=== PATIENT | male | born 1935 | race Caucasian/White ===

== ENCOUNTER 2018-08-05 05:15 | Inpatient (IN) ==
--- NOTE | 2018-06-15 14:50 | Anesthesiology Consultation ---
Date of Service June 15, 2018 Assessment & Plan (1) Encounter for pre-operative examination: Plan: PCP 05/26/2018: We have evaluated Rao Garcia preoperatively and found the patient to be medically stable for this procedure and anesthetic agent. Patient was last evaluated by cardiology 11/17/2017. Referred for evaluation of SOB, atypical chest pain. Per cardiology "I believe his chest pain is not cardiac. He underwent an adenosine Myoview stress [January 2017] which was negative for reversible ischemia. He does have history of heart disease and previous angioplasty Therefore I advised him in case chest pain is worse to make sure he calls us or call his PCP in the event either to repeat pharmacological stress testing or do a coronary angiogram. He has significant chronic renal disease and therefore at this time did not recommend he should have coronary angiogram as a last resort. I believe his symptoms of shortness of breath, fatigue, not been able to do much, is multifactorial. He used to use CPAP but has not been using it for 1 year. He is very sedentary, is morbidly obese, and has history of chronic lung disease... Advised him to start to walk and lose weight to watch his diet and check his weight on a regular basis... Atorvastatin increased from 40 mg to 80 mg daily. I did not give him follow-up appointment at this time will be pleased to see him if he has any new cardiac problem." Patient denies any worsening or change in symptoms (very rarely has episodes of same atypical CP). Chart Review Chart Review: Acceptable Risk for Surgery and Patient seen in Pre Admission Testing Teaching & Discussion Instructed NPO after midnight before surgery, except medications with 15 cc of water. Medication instructions provided according to the PAT guidelines. History Surgery Operation Date: 08/05/18 07:10 Proposed Procedures p Right Knee Unicompartment Arthroplasty versus Total Knee Arthroplasty - Dutch Pride MD Height/Weight Height: 5 ft 10 in Weight: 112.9 kg Allergies Allergy/AdvReac Type Severity Reaction Status Date / Time indomethacin Allergy Unknown LOWERED Verified 06/12/18 11:35 WHITE CELL COUNT metformin AdvReac Unknown pt unsure Verified 06/15/18 14:48 why Medications Home Medications Medication Instructions Recorded Confirmed Last Taken acetaminophen 650 mg PO Q6H PRN 06/12/18 06/12/18 Unknown albuterol sulfate 2 puff INHALATION Q6H PRN 06/12/18 06/12/18 Unknown allopurinol 300 mg PO QAM 06/12/18 06/12/18 Unknown aspirin 81 mg PO BID 06/12/18 06/12/18 Unknown atorvastatin 80 mg PO HS 06/12/18 06/12/18 Unknown celecoxib [Celebrex] 200 mg PO BID PRN 06/12/18 06/12/18 Unknown fluticasone-salmeterol [Advair 1 inh INHALATION BID 06/12/18 06/12/18 Unknown Diskus] glipizide 10 mg PO BID 06/12/18 06/12/18 Unknown lactobacillus combination no.4 3,000 mmu cells PO QAM 06/12/18 06/12/18 Unknown [Probiotic] metoprolol succinate 100 mg PO QAM 06/12/18 06/12/18 Unknown olmesartan 40 mg PO QAM 06/12/18 06/12/18 Unknown sitagliptin [Januvia] 100 mg PO QAM 06/12/18 06/12/18 Unknown tamsulosin 0.4 mg PO QAM 06/12/18 06/12/18 Unknown repaglinide 2 mg PO TID 06/15/18 06/15/18 Unknown Past Medical History Medical History BPH (benign prostatic hyperplasia) CAD (coronary artery disease) s/p stent to RCA x 1 2009 Chronic obstructive pulmonary disease very rare albuterol use. Daily Advair, stable. Diabetes mellitus, type 2 Hyperlipidemia Hypertension Neuropathy LEFT LOWER LEG/FOOT. PT STATES HE HAS DROP FOOT. Osteoarthritis Sleep apnea PT HAS CPAP DEVICE, DOES NOT CURRENTLY WEAR. Transient ischemic attack (TIA) JANUARY 2018. NO RESIDUAL. Past Surgical History Surgical History Fusion of spine LUMBAR History of cardiac cath 2009. STENT X1. [facility] History of carotid endarterectomy LEFT. 2018 in [place] History of cholecystectomy History of colonoscopy History of tonsillectomy Past Anesthesia History No Hx of Anesthesia Complications and No Family Hx of Anesthesia Complications History of PONV No Motion Sickness Screening History of Motion Sickness: No Social History Smoking Status: Former smoker tobacco type: cigarettes Smoking cigarettes per day: H/O up to 2ppd Do You Dip or Chew Tobacco: No Smoking End Date: QUIT IN 1967 Hx Alcohol Use: No Hx Substance Use: No substance use type: does not use Exercise / Class Metabolic Activity III < 4 Walking/Shop/Light housework (no CP or SOB with ambulation, limited activity 2/2 foot drop/neuropathy.) Review of Systems Pt denies any recent chest pain, shortness of breath above baseline, palpitations, cough, fever or URI. Current post nasal drip/phlegm. Physical Exam Vital Signs BP: 143/85 P: 78 SPO2: 93% RA T: 97.9 R: 20 ENMT Mouth: + dentures and + edentulous Thyromental Distance: < 3.5 Finger Breadths (3) Mallampati Class: III Neck + short neck and + thick neck; neck extension not limited L CEA scar, healed Respiratory normal respiratory effort and + prolonged expiratory phase Auscultation: lungs clear to auscultation bilaterally Cardiovascular Rate/Rhythm: regular rate and regular rhythm Heart Sounds: no murmur Vessels: no carotid bruit Very distant sounds Testing Electrocardiogram Date: 06/15/18 Findings: + NSR @ (78) Sinus arrhythmia. Left axis deviation. Chest X-Ray Date: 06/15/18 1. There is no active disease in the chest. 2. Emphysema with left upper lobe bullous change is similar to previous. 3. Dystrophic calcifications projecting over the left mid chest are also unchanged. Echocardiogram Date: 02/09/17 EF: 60-65% Impaired relaxation pattern of LV diastolic fillinggrade 1. Left atrium is mildly dilated. Aortic valve with a normal mean gradient on Doppler and poor leaflet mobility of 2D images. No AR. Normal right ventricular size and systolic function. No pericardial effusion is seen. Stress Test Date: 02/11/17 Type: nuclear Resting EF: 65% The overall quality of the images are good. The LV cavity is normal on the rest and stress studies. The RV appears normal. Myocardial perfusion imaging study appears normal following pharmacologic stress with regadenoson. No stress- induced perfusion abnormality is identified. There is diaphragmatic attenuation of the inferior wall. Normal regional and global left ventricular function. LVEF is 58% post stress. Other Testing Carotid US 09/01/17* 50-69% stenosis ZOFIA. LICA demonstrates slight increase in velocities, however no significant stenosis present. Antegrade flow is seen within B/L vertebral arteries. *This was done as a routing screening. Pt had subsequent TIA; repeat carotid doppler at different facility showed more severe occlusion, and pt had L CEA 2017. Laboratory Results 06/15/18 15:15 06/15/18 13:21 Blood Type O Positive 06/15/18 15:15 Antibody Screen NEGATIVE 06/15/18 15:15 PT 11.6 Seconds (9.0-12.0) 06/15/18 15:15 INR 1.1 (0.9-1.1) 06/15/18 15:15 APTT 26.3 Seconds (21.0-31.0) 06/15/18 15:15 Hemoglobin A1c 6.7 % (4.5-5.6) H 06/15/18 15:15
--- NOTE | 2018-06-15 15:13 | PAT Medication Instructions ---
Medication Instructions Date of Service June 15, 2018 Home Medications acetaminophen 650 mg PO Q6H PRN albuterol sulfate 2 puff INHALATION Q6H PRN allopurinol 300 mg PO QAM aspirin 81 mg PO BID atorvastatin 80 mg PO HS celecoxib [Celebrex] 200 mg PO BID PRN fluticasone-salmeterol [Advair] 1 inh INHALATION BID glipizide 10 mg PO BID [Probiotic] 3,000 mmu cells PO QAM metoprolol succinate 100 mg PO QAM olmesartan 40 mg PO QAM sitagliptin [Januvia] 100 mg PO QAM tamsulosin 0.4 mg PO QAM repaglinide 2 mg PO TID Check with MD/Surgeon-instructions aspirin 81 mg PO BID celecoxib [Celebrex] 200 mg PO BID PRN Hold the morning of surgery glipizide 10 mg PO BID [Probiotic] 3,000 mmu cells PO QAM olmesartan 40 mg PO QAM sitagliptin [Januvia] 100 mg PO QAM tamsulosin 0.4 mg PO QAM repaglinide 2 mg PO TID Take morning of surgery with a sip of water, OTHERWISE NOTHING TO EAT OR DRINK AFTER MIDNIGHT: acetaminophen 650 mg PO Q6H PRN (if needed, may be taken up to four hours before surgery) albuterol sulfate 2 puff INHALATION Q6H PRN (if needed, and bring with you to the hospital) allopurinol 300 mg PO QAM fluticasone-salmeterol [Advair] 1 inh INHALATION BID metoprolol succinate 100 mg PO QAM Take evening before surgery atorvastatin 80 mg PO HS fluticasone-salmeterol [Advair] 1 inh INHALATION BID repaglinide 2 mg PO TID Other Notes If you have any questions please call us at [phone] or [phone] or [phone] or [phone]
[2018-06-15 15:49] LABS: Basophils # (auto) 0.03 K/uL (0-0.2); Basophils % (auto) 0.6 %; Eosinophils % (auto) 5.8 %; Hematocrit (blood only) 44.3 % (42-52); Hemoglobin 14.3 g/dL (14.0-18.0); Immature Granulocytes # (auto) 0.01 K/uL (0.00-0.02); Immature Granulocytes % (auto) 0.2 %; Lymphocytes # (auto) 1.61 K/uL (1.2-3.4); Mean Corpuscular Hgb Conc 32.3 g/dL (32-36); Mean Corpuscular Volume 89.5 fL (80-100); Mean Platelet Volume 9.6 fL (7.4-10.4); Monocytes # (auto) 0.38 K/uL (0.11-0.59); Monocytes % (auto) 7.3 %; Neutrophils # (auto) 2.86 K/uL (1.4-6.5); Neutrophils % (auto) 55.1 %; Platelet Count 138 K/uL (130-400); RDW Standard Deviation 48.4 fL (36.4-46.3); Red Blood Count 4.95 M/uL (4.7-6.1); White Blood Count 5.19 K/uL (4.8-10.8)
[2018-06-15 15:59] LABS: INR 1.1 (0.9-1.1); Partial Thromboplastin Time 26.3 Seconds (21.0-31.0); Prothrombin Time 11.6 Seconds (9.0-12.0)
[2018-06-15 16:02] LABS: BUN Creatinine Ratio 12.2 (10-20); Calcium 8.9 mg/dl (8.5-10.1); Creatinine Clr Calc Pharmacy 46.2 ml/min; Est GFR (African American) 47.6; Est GFR (Non-African American) 41.1
--- NOTE | 2018-06-15 17:54 | XRay Report ---
TWO VIEW CHEST CLINICAL HISTORY: Preoperative examination. FINDINGS: PA and lateral chest radiographs are compared to study dated 12/11/2017. The heart is top no rmal for projection and there is atherosclerotic calcification of the thoracic aorta. Advanced emphys ematous change is noted with large left upper lobe bullae. This is similar appearance to previous. La rge calcifications projecting over the left hemithorax are also similar to previous. There is mild bi basilar scarring/atelectasis. No airspace consolidation or large pleural effusion is identified. Ther e is no pneumothorax. The skeletal structures are osteopenic. Degenerative change is noted throughout the thoracic spine. IMPRESSION: 1. There is no active disease in the chest. 2. Emphysema with left upper lobe bullous change is similar to previous. 3. Dystrophic calcifications projecting over the left mid chest are also unchanged. Electronically signed by: Jhon Sun M.D. 06/15/2018 5:53 PM
[2018-06-16 05:49] LABS: Estimated Average Glucose 146 mg/dl
--- NOTE | 2018-08-01 12:54 | History and Physical Report ---
DATE OF ADMISSION: 08/05/2018 CHIEF COMPLAINT: Persistent right medial knee pain and discomfort. HISTORY OF PRESENT ILLNESS: The patient is an 83-year-old gentleman from [place], who now presents for surgical treatment of his right knee. We had actually seen him and scheduled for partial knee replacement in the past, but had cancelled due to an elevated hemoglobin A1c level. He has gotten with his medical doctor and gotten this under better control. His hemoglobin A1c is now 6.7. He continues to be bothered by medial-sided knee pain. He uses a cane to get around for balance as well as pain. He does have some underlying neuropathy. He has been through extensive conservative treatment including injections which helped him temporarily. Pain is mostly all medial. He now would like to have this fixed. PAST MEDICAL HISTORY: 1. Hypertension. 2. Elevated cholesterol. 3. Cerebrovascular disease with a history of TIAs in the past and a carotid endarterectomy done in February 2017 in [place]. 4. Asthma. 5. COPD. 6. Coronary artery disease, status post stent placement in 2009. 7. Sleep apnea. 8. Diabetes. 9. Sciatica. 10. Obesity with a BMI of 36. 11. BPH. PAST SURGICAL HISTORY: Include: 1. Back surgery. 2. Carotid endarterectomy 2016. 3. Cholecystectomy. 4. Cardiac stent placement in 2009. ALLERGIES: INDOCIN. CURRENT MEDICINES: Include: 1. Tamsulosin 0.4 mg. 2. Januvia 100 mg. 3. Olmesartan 40 mg. 4. Allopurinol 300 mg. 5. Metoprolol 10 mg a day. 6. Glipizide 10 mg twice a day. 7. Albuterol p.r.n. 8. Advair inhaler twice a day. 9. Atorvastatin 80 mg at bedtime. 10. Celebrex p.r.n. 11. Probiotic. 12. Baby aspirin twice a day. 13. Repaglinide 2 tablets in the morning, 1 at noon and 2 at nighttime. SOCIAL HISTORY: An 83-year-old male. He is from [place]. He is . Does not smoke. FAMILY HISTORY: Noncontributory. REVIEW OF SYSTEMS: Significant for diabetes. Also, he has a history of cerebrovascular disease, but no underlying neurological sequelae from this. He has got some chronic neuropathy and a foot drop on his left side. History of previous cardiac stent placement by Dr. Britton. PHYSICAL EXAMINATION: GENERAL: Shows a pleasant elderly male. Looks to be in pretty good health. HEENT: Benign. NECK: Supple. No lymphadenopathy. LUNGS: Clear to auscultation. HEART: Regular rate and rhythm. ABDOMEN: Soft, nontender, nondistended. EXTREMITIES: Grossly neurovascularly intact except as follows: Examination of the right lower extremity reveals the patient walks with use of a cane. He has got varus alignment to his knee. Small knee effusion. He is tender over the medial joint line. Range of motion is 5 to 125. No instability. X-RAYS: X-ray of the right knee reviewed. Shows advanced medial compartment DJD. He may have a small segment of AVN of the medial femoral condyle. The lateral compartments well preserved. Patellofemoral joint looks pretty well preserved. With the stress film, his medial side opens up and lateral side is maintained. ASSESSMENT: An 83-year-old male with a history of multiple medical comorbidities with advanced medial compartment degenerative joint disease. Temporary response to conservative care. He has been scheduled for surgery in the past, but canceled due to his elevated A1c level which is under much better control now. He would like to have his right knee fixed. PLAN: We talked about treatment options. Based on his medical comorbidities and his symptoms, I think a partial knee replacement is most appropriate for this gentleman. If we get in there and his knee is too bad, we will do a full knee replacement, but we will hope and do this partial knee. The risks and benefits of partial versus total knee replacement were explained to the patient including but not limited to DVT, PE, , infection, neurological injury, vascular injury, bleeding problem, pain, limited range of motion, stiffness, failure to relieve symptoms, incomplete relief of symptoms, need for further surgery in future, fracture, leg length inequality, nerve palsy, incomplete relief of symptoms, etc. The patient understands and desires to proceed. Informed consent was obtained. We did talk to him about taking his metoprolol the morning of surgery with a sip of water. Use aspirin for DVT prophylaxis. He is hoping to be discharged to home with his 's assistance and a son who can help out as well along with the home health program. He will also need to bring his CPAP machine to the hospital.
[2018-08-05] MEDS: LR 500ML BOLUS, THEN 15ML/HR IV SCH ×3 (05:50→19:09)
[2018-08-05] MEDS ORDERED: BUPIVACAINE LIPOSOME/PF 266 MG, BUPIVACAINE/EPINEPHRINE 50 ML, SODIUM CHLORIDE 0.9% 30 ... INFIL SCH (06:00)
[2018-08-05] MEDS ORDERED: CEFAZOLIN 2000MG 2,000 MG/15 ML SYR IV SCH (06:00)
[2018-08-05] MEDS ORDERED: GABAPENTIN 300 MG PO SCH (06:00)
[2018-08-05] MEDS ORDERED: LR 60ML/HR IV SCH (06:00)
[2018-08-05] MEDS ORDERED: FAMOTIDINE 20 MG TAB PO SCH (06:00)
[2018-08-05] MEDS ORDERED: ACETAMINOPHEN 500 MG TAB PO SCH (06:00)
[2018-08-05] MEDS ORDERED: METOCLOPRAMIDE HCL 10 MG TABLET PO SCH (06:00)
[2018-08-05] MEDS ORDERED: BUPIVACAINE 0.5 % 5 MG/1 ML PF 10ML VIAL ONE (06:22)
[2018-08-05] MEDS ORDERED: EPINEPHrine INJ 1 MG/ML AMP ONE (06:23)
[2018-08-05] MEDS ORDERED: ROPIVACAINE 0.5% 5 MG/ML 30 ML VIAL ONE (06:23)
[2018-08-05] MEDS ORDERED: TRANEXAMIC ACID 1,000 MG **IV Intra-op IV SCH (06:30)
[2018-08-05] MEDS ORDERED: SODIUM CHLORIDE 0.9% PF 50 ML VIAL ONE (06:52)
[2018-08-05] MEDS ORDERED: BACITRACIN INJ 50,000 UNIT VIAL ONE (06:52)
[2018-08-05] MEDS ORDERED: BUPIVACAINE LIPOSOME 1.3% 266 MG/20 ML VIAL INFIL ONE (06:52)
[2018-08-05] MEDS ORDERED: BUPIVACAINE/EPINEPHRINE 0.25% 1:200,000 30 ML VIAL ONE (06:55)
[2018-08-05] MEDS ORDERED: fentaNYL citrate 100 MCG/2 ML VIAL ONE ×2 (06:57→07:57)
[2018-08-05] MEDS ORDERED: MIDAZOLAM HCL 1 MG/ML 2ML VIAL ONE ×2 (06:57→07:49)
[2018-08-05] MEDS ORDERED: ATROPINE SULFATE 0.1 MG/ML 10ML SYR IV PRN (06:58)
[2018-08-05] MEDS ORDERED: MEPERIDINE HCL 25 MG/ML CARP IV PRN (06:58)
[2018-08-05] MEDS ORDERED: fentaNYL citrate 100 MCG/2 ML VIAL IV PRN (06:58)
[2018-08-05] MEDS ORDERED: LABETALOL HCL IV 5 MG/ML 20ML IV PRN (06:58)
[2018-08-05] MEDS ORDERED: HYDROmorphone INJ 1 MG/ML SYRINGE IV PRN (06:58)
[2018-08-05] MEDS ORDERED: PHENYLEPHRINE 100MCG/ML 5ML SYR IV PRN (06:58)
[2018-08-05] MEDS ORDERED: ONDANSETRON INJ 2 MG/ML 2 ML VIAL IV PRN ×2 (06:58→10:15)
[2018-08-05] MEDS ORDERED: ePHEDrine sulfate 50 MG/ML AMP IV PRN (06:58)
--- NOTE | 2018-08-05 07:00 | History & Physical Bridge Note ---
Date of Service August 05, 2018 History & Physical Bridge Note I have examined the patient, reviewed the History & Physical and in the interval since the performance of the History & Physical I have noted the following changes of clinical significance: no changes noted
[2018-08-05] MEDS ORDERED: ONDANSETRON INJ 2 MG/ML 2 ML VIAL ONE (07:43)
[2018-08-05] MEDS ORDERED: LIDOCAINE HCL 2% 2 ML VIAL/AMP(20MG/ML) INFIL ONE (08:00)
[2018-08-05] MEDS ORDERED: BUPIVACAINE/EPINEPHRINE 0.25% 1:200,000 30 ML VIAL INFIL ONE (08:01)
[2018-08-05] MEDS ORDERED: PHENYLEPHRINE 100MCG/ML 5ML SYR ONE (08:17)
[2018-08-05] MEDS ORDERED: PROPOFOL IV EMULSION 10 MG/ML 20 ML VIAL IV ONE (08:17)
--- NOTE | 2018-08-05 09:06 | Post Operative Brief Note ---
Immediate Post Op Note v1 Date of Surgery August 05, 2018 Pre & Post Diagnosis Operation Date: 08/05/18 07:15 Pre-Op Diagnosis: Right Knee Degenerative Joint Disease; Knee Pain Post-Op Diagnosis: Right Knee Degenerative Joint Disease; Knee Pain Procedure Operation Date: 08/05/18 07:15 Actual Procedures p Right Knee Unicompartment Arthroplasty (Right) - Dutch Pride MD Surgeon Dutch Pride MD Business Assistant [place], PAC Estimated Blood Loss 20 Findings Consistent with Post-Op Diagnosis Fluids 1600 cc Specimens Right Knee Drains Gerber Catheter Anesthesia Type Spinal MAC Complications none Disposition Accompanied Patient To Recovery: Yes Disposition: Recovery Room
--- NOTE | 2018-08-05 09:34 | XRay Report ---
XR knee RT 2V routine CLINICAL HISTORY: Surgical Post Op COMPARISON STUDY: Right knee 06/15/2018. FINDINGS: Patient is status post medial unicondylar prosthesis. The hardware is intact. No fracture o r dislocation. Skin quiana are in place. IMPRESSION: Status post medial unicondylar prosthesis. No evidence for hardware complication. Electronically signed by: Gregor De Jesus M.D. 08/05/2018 9:33 AM
--- NOTE | 2018-08-05 09:47 | Anesthesiology Progress Note ---
Date of Service August 05, 2018 Anesthesia Post Procedure Vital Signs Vital Signs: Temp Pulse Pulse Resp BP BP Pulse Ox 08/05/18 09:35 82 14 144/75 H 97 08/05/18 09:25 82 14 137/74 97 08/05/18 09:15 83 14 125/72 99 08/05/18 09:07 37.2 C 82 14 122/63 96 08/05/18 06:19 36.7 C 88 20 208/105 H 198/101 H 92 Notes Mental Status: alert / awake / arousable Patient Amnestic to Procedure: Yes Nausea / Vomiting: adequately controlled Pain: adequately controlled Airway Patency, RR, SpO2: stable & adequate BP & HR: stable & adequate Hydration State: stable & adequate Neuraxial Anesthesia: was administered and sensory block is resolving Anesthetic Complications: no major complications apparent and Pt Satisfied with anesthetic care
--- NOTE | 2018-08-05 10:13 | Operative Report ---
DATE OF OPERATION: 08/05/2018 SURGEON: Dutch Pride MD. PIER WORKER: ELISABET Hickey. PREOPERATIVE DIAGNOSIS: Right knee medial compartment degenerative joint disease. POSTOPERATIVE DIAGNOSIS: Right knee medial compartment degenerative joint disease. PROCEDURE PERFORMED: Right Bi[employer] [place] mobile bearing partial knee replacement. COMPLICATIONS: None. ESTIMATED BLOOD LOSS: 20 mL. FLUID REPLACEMENT: 1600 mL. TOURNIQUET TIME: 67 minutes at 300 mmHg. ANESTHESIA: Spinal with adductor canal block. DRAINS: None. SPECIMENS: Right knee sent for Pathology. OPERATIVE INDICATIONS: The patient is an 83-year-old male with multiple comorbidities, had a several year history of increasing right knee pain and discomfort. We had actually scheduled him for partial knee replacement in the past, but had it rescheduled for medical optimization. The patient has been optimized and now presents for surgical treatment. OPERATIVE FINDINGS: Revealed advanced grade 4 changes of the medial femoral condyle and medial tibial plateau. The patellofemoral joint was fairly well preserved. He did have a little bit of lateral compartment changes in the distal femur, but very mild and we elected to proceed with a partial knee replacement. OPERATIVE IMPLANTS: Consisted of: 1. Biomet [place] medium size femoral component. 2. Biomet [place] right medial size D tibial tray. 3. A 4 mm mobile-bearing insert. OPERATIVE PROCEDURE: The patient was taken to the Operating Room, identified and placed on the operating table in supine position. All contact areas were appropriately padded. IV antibiotics were provided by Anesthesia team. Spinal anesthetic and adductor canal block had been provided in the holding area. Gerber catheter was placed in sterile fashion. Right thigh tourniquet was then placed and the right lower extremity was then prepped and draped in usual sterile fashion. Right leg was elevated and exsanguinated with Esmarch and tourniquet was placed at 300 mmHg. Anterior approach of the right knee was then performed through a longitudinal incision from the superior medial border of the patella to just medial to the tibial tubercle. Sharp dissection was carried out through the subcutaneous tissues down to the level of the extensor mechanism. A medial parapatellar arthrotomy incision was made. Some slight subperiosteal dissection was carried out medially, taking great care to protect the MCL. I did resect some of the fat pad. I then examined the knee and there were some very mild lateral compartment changes and I elected to proceed with partial knee replacement. The trochlea and patella were fairly well preserved. He had extensive grade 4 changes of the medial side. The osteophytes were taken off the intercondylar notch area. The femur was sized to a size medium. The medium spoon was placed and attached to the tibial cutting guide. Tibial cutting guide was pinned in place. The proximal tibial cut was made. The tibia was then sized to a size D. Attention was then drawn to the femur. The intramedullary canal of the femur was entered with a sharp drill. Intramedullary guide was placed. A medium femoral component template was then placed and secured to the IM arian. The holes were drilled for the femoral component. Posterior cutting guide was placed and posterior cut was made. Distal femur was then milled. I then resected the medial meniscus. I then trialed the knee and the 4 mm spacer fit appropriate in flexion and the 1 in extension. We then milled the distal femur with the 3 spigot. We then retrialed the knee and the 4 feeler gauge fit appropriately in flexion and extension. Attention was then drawn to placement of the permanent components. All trial components were removed. The distal femoral preparation device was placed. Distal femur was milled anteriorly and the posterior osteophyte was removed. The cement drill was used to create some holes in the distal femur for cement interdigitation. The tibial tray was then pinned in place. The toothbrush blade was used to create the keel for the tibial tray. We then trialed the knee one more time and the 4 insert fit most appropriately in flexion and extension. We elect to place these implants. All trial implants were removed. I irrigated it extensively. I did inject locally with a total of 100 mL of a combination of 20 mL of Exparel, 30 mL of normal saline, 50 mL of 0.25% Marcaine with epinephrine. The patient did receive 1 g of tranexamic acid. The wound was once again irrigated. A single batch of [place] G cement was mixed. A Biomet [place] size medium femoral component, size D medial tibial tray were then cemented in place using the feeler gauge. The knee was brought out in about 30 degrees short of full extension until cement hardened. A final cement check was then performed. We then trialed the knee one more time and then elected to place a 4 insert. The 4 insert was placed. Attention was then drawn toward closing. The wound was irrigated with copious amounts of pulsatile lavage solution. The tourniquet was let down for a tourniquet time of 67 minutes. Hemostasis was assured using electrocautery. The extensor mechanism was then closed with #1 Vicryl suture in a [id number] fashion. Extensor mechanism was checked and found to be intact. The subcutaneous tissue then closed with 2 Dexon suture in a buried interrupted fashion. Skin was closed with skin quiana. Leg was then cleaned and dried and a sterile dressing of Xeroform, 4 x 4, sterile cast padding and Nehemias bandage were applied. The patient transferred to the Recovery Room in stable condition. The patient tolerated the procedure well with no complications. All needle and sponge counts were correct at the end of the operation. I attest to the content of the Intraoperative Record and any orders documented therein. Any exception s are noted below.
[2018-08-05] MEDS ORDERED: METOCLOPRAMIDE HCL INJ 5 MG/ML 2 ML VIAL IV PRN (10:15)
[2018-08-05] MEDS ORDERED: HYDROmorphone INJ 0.5 MG/0.5 ML SYR IV PRN (10:15)
[2018-08-05] MEDS ORDERED: ALUMINUM/MAGNESIUM SUSP 30 ML UDC PO PRN (10:15)
[2018-08-05] MEDS ORDERED: MAGNESIUM HYDROXIDE SUSP 30 ML UDC PO PRN (10:15)
[2018-08-05] MEDS ORDERED: BISACODYL 10 MG SUPP PR PRN (10:15)
[2018-08-05] MEDS ORDERED: ALBUTEROL HFA 8 GM INHALER INH PRN (10:15)
[2018-08-05] MEDS ORDERED: TAMSULOSIN HCL 0.4 MG CAP PO PRN (10:15)
[2018-08-05] MEDS ORDERED: TRAMADOL HCL 50 MG TABLET PO PRN (10:15)
[2018-08-05] MEDS ORDERED: CeleBREX 200 MG CAP PO PRN (10:15)
[2018-08-05] MEDS: SODIUM CHLORIDE 0.9% 1000ML 1,000 ML IV SCH ×2 (11:04→21:02)
[2018-08-05] MEDS ORDERED: CARBOHYDRATES FOR HYPOGLYCEMIA PO PRN (11:37)
[2018-08-05] MEDS ORDERED: DEXTROSE 50% 50 ML SYRINGE IV PRN (11:37)
[2018-08-05] MEDS ORDERED: GLUCOSE 40% GEL 15 GM TUBE PO PRN (11:37)
[2018-08-05] MEDS ORDERED: GLUCOSE 10 TABS/TUBE PO PRN (11:37)
[2018-08-05] MEDS ORDERED: GLUCAGON FOR INJ 1 MG VIAL SQ PRN (11:37)
[2018-08-05] MEDS ORDERED: PHARMACY GLYCEMIC MGMT CONSULT PRN (11:39)
[2018-08-05] MEDS ORDERED: REPAGLINIDE 1 MG TAB PO SCH (12:00)
[2018-08-05] MEDS ORDERED: INSULIN GLARGINE SOLOSTAR 100 UNITS/ML 3 ML PEN SC STA ×2 (12:25→14:12)
[2018-08-05] MEDS: INSULIN ASPART 100 UNITS/ML 3 ML PEN SC SCH ×3 (12:57→21:06)
[2018-08-05] MEDS: ACETAMINOPHEN 500 MG TAB PO SCH ×2 (14:37→21:02)
--- NOTE | 2018-08-05 14:46 | Pharmacy Report ---
Glycemic Control Consultation - Date of Service August 05, 2018 - Scope Scope: Glycemic Pharmacist consulted by Dr Pride on 08/05/18 for glycemic control and to write orders per [facility] inpatient glycemic control protocol - Objective Weight: 112.5 kg Accuchecks BSG (last 24hrs): 08/05/18 08/05/18 08/05/18 06:09 09:12 11:59 POC Glucose 180 H 161 H 230 H HbA1c: Hemoglobin A1c 6.7 % (4.5-5.6) H 06/15/18 15:15 - Recent Pertinent Medications Outpatient Anti-diabetic Regimen: * Glipizide, Prandin, Januvia * A1c = 6.7 % 06/15/18 - Assessment & Plan Assessment & Plan: ASSESSMENT: * Mr. Lea is an 83yo M unbeknownst to the pharmacy glycemic service. PMHx: HTN, HLD, CVA, DM-II, COPD, among others. He is POD: 0 for a partial knee replacement. His outpt glycemic management is adequate as evidenced by his A1C of 6.7, obtained 06/15/18. * He did not receive any maik-operative steroids, I do not suspect him to experience sustained hyperglycemia PLAN FOR INPATIENT GLYCEMIC CONTROL: * Holding outpatient oral diabetes medications * Basal insulin * Lantus 20 units X1 this afternoon * Bolus insulin * NovoLog per scale ACHS or Q6hrs while NPO * Goal Range: Low 110 mg/dL - High 140 mg/dL * Correction Factor: 15 mg/dL/unit * Nutritional / Prandial insulin per carb ratio of 1 unit per 5 grams CHO consumed * Please note that the plan above was derived based on current level of insulin resistance and hospital stress. These recommendations are appropriate for inpatient admission only. Plan of care upon discharge will need to be reassessed to avoid potential outpatient hypo/hyperglycemia. Thank you.
[2018-08-05] MEDS: CEFAZOLIN 2000MG 2,000 MG/15 ML SYR IV SCH ×2 (15:56→23:34)
[2018-08-05] MEDS ORDERED: glipiZIDE 5 MG TAB PO SCH (17:00)
[2018-08-05] MEDS ORDERED: ATORVASTATIN 40 MG TAB PO SCH (21:00)
[2018-08-05] MEDS ORDERED: SENNA 8.6 MG TAB PO SCH (21:00)
[2018-08-05] MEDS: FLUTICASONE/SALMETEROL 250/50 (ADVAIR) 14 PUFF/1 INHALER INH SCH (21:01)
[2018-08-05] MEDS: DOCUSATE SODIUM 100 MG CAP PO SCH (21:02)
[2018-08-05] MEDS: ASPIRIN 81 MG ECTAB PO SCH (21:02)
--- NOTE | 2018-08-05 21:31 | Progress Note ---
DATE: 08/05/2018 SUBJECTIVE: An 83-year-old gentleman postop from a right partial knee replacement. He is doing well. Not really having much pain yet. No chest pain or shortness of breath. Not feeling dizzy or lightheaded. OBJECTIVE: VITAL SIGNS: Temperature 36.7. Vital signs stable. Some mild hypertension. PHYSICAL EXAMINATION: GENERAL: Today shows pleasant elderly male. He is sitting up in bed and looks comfortable. He is talking to his family. LUNGS: Clear to auscultation. HEART: Regular rate and rhythm. ABDOMEN: Soft, nontender, nondistended. EXTREMITIES: Grossly neurovascularly intact except as follows: Examination of the right leg reveals the leg to be well aligned. He can dorsiflex and plantarflex his foot appropriately. He is neurologically intact. X-RAYS: X-ray of the right knee from recovery room was reviewed. Shows a cemented partial knee replacement. Components looked to be in good position. No signs of problems. It is a somewhat rotated film. ASSESSMENT: An 83-year-old male with multiple medical comorbidities postop from a right partial knee replacement, doing well. Pain is controlled. He is neurologically intact. PLAN: 1. DVT prophylaxis including thigh-high TEDs, SCDs, and aspirin twice a day. 2. PT/OT. Weight bear as tolerated. Right partial knee replacement protocol. 3. IV antibiotics x24 hours. 4. Disposition: He is planning to be discharged to home with some home health once adequately recovered. We will see how he does in therapy tomorrow.
[2018-08-06] MEDS: ACETAMINOPHEN 500 MG TAB PO SCH (06:29)
--- NOTE | 2018-08-06 07:51 | Progress Note ---
DATE: 08/06/2018 SUBJECTIVE: An 83-year-old gentleman postop day 1 from a right partial knee replacement. He is doing well. His pain is controlled. No chest pain or shortness of breath. Feels like he is likely okay to go home. OBJECTIVE: VITAL SIGNS: Temperature 36.8. Vital signs stable. GENERAL: Physical examination shows a pleasant elderly male. He is lying in bed, looks comfortable. He has been watching TV. EXTREMITIES: Examination of the right leg reveals the leg to be well aligned. Dressing is clean, dry, and intact. He can do a good straight leg raise. Calf is soft and supple. He is neurologically intact. LABORATORY DATA: Pending. ASSESSMENT: An 83-year-old gentleman postop day 1 from a right partial knee replacement, doing well. His pain is controlled. PLAN: 1. DVT prophylaxis including thigh-high TEDs, SCDs, and aspirin twice a day. He is normally on a baby aspirin twice a day. 2. PT/OT. Weight bear as tolerated. Right total knee protocol. 3. Pain control. Doing well with current pain regimen. 4. Disposition: Plan to discharge to home with some home health if he does okay in therapy today.
[2018-08-06 08:03] LABS: Hematocrit (blood only) 40.4 % (42-52); Hemoglobin 13.1 g/dL (14.0-18.0); Mean Corpuscular Hgb Conc 32.4 g/dL (32-36); Mean Platelet Volume 10.5 fL (7.4-10.4); Platelet Count 128 K/uL (130-400); RDW Coefficient of Variation 15.5 % (11.5-14.5); RDW Standard Deviation 49.5 fL (36.4-46.3); Red Blood Count 4.54 M/uL (4.7-6.1); White Blood Count 6.37 K/uL (4.8-10.8)
[2018-08-06] MEDS: INSULIN ASPART 100 UNITS/ML 3 ML PEN SC SCH (08:34)
[2018-08-06] MEDS: FLUTICASONE/SALMETEROL 250/50 (ADVAIR) 14 PUFF/1 INHALER INH SCH (08:35)
[2018-08-06] MEDS: ASPIRIN 81 MG ECTAB PO SCH (08:38)
[2018-08-06] MEDS: DOCUSATE SODIUM 100 MG CAP PO SCH (08:41)
[2018-08-06] MEDS ORDERED: OLMESARTAN MEDOXOMIL 40 MG TAB PO SCH (09:00)
[2018-08-06] MEDS ORDERED: METOPROLOL SUCC 50MG EXT REL TAB PO SCH (09:00)
[2018-08-06] MEDS ORDERED: TAMSULOSIN HCL 0.4 MG CAP PO SCH (09:00)
[2018-08-06] MEDS ORDERED: PANTOprazole 40 MG TAB PO SCH (09:00)
[2018-08-06] MEDS ORDERED: ALLOPURINOL 300 MG TAB PO SCH (09:00)
[2018-08-06] MEDS ORDERED: LACTOBACILLUS ACIDOPHILUS (FLORANEX) TAB PO SCH (09:00)
[2018-08-06] MEDS ORDERED: SITAGLIPTIN PHOSPHATE 100 MG TAB PO SCH (09:00)
[2018-08-06] MEDS ORDERED: MULTIVITAMIN TAB PO SCH (09:00)
[2018-08-06 09:02] LABS: BUN Creatinine Ratio 13.9 (10-20); Calcium 8.7 mg/dl (8.5-10.1); Est GFR (African American) 49.9; Est GFR (Non-African American) 43.1; Potassium 4.4 mmol/L (3.5-5.1)
[2018-08-06] MEDS ORDERED: INSULIN GLARGINE SOLOSTAR 100 UNITS/ML 3 ML PEN SC STA (09:06)
--- NOTE | 2018-08-06 11:27 | Anesthesiology Progress Note ---
Date of Service August 06, 2018 Anesthesia Post Procedure Vital Signs Vital Signs: Temp Pulse Pulse Pulse Resp BP Pulse Ox 08/06/18 11:08 36.9 C 82 80 83 18 183/73 H 91 08/06/18 07:45 36.9 C 83 18 183/73 H 91 08/06/18 03:21 36.8 C 79 18 163/70 H 93 08/05/18 23:18 36.8 C 84 16 179/79 H 91 08/05/18 20:59 80 186/94 H 08/05/18 19:23 36.7 C 80 16 190/98 H 90 08/05/18 19:07 67 198/94 H 08/05/18 15:41 36.7 C 73 16 191/82 H 92 08/05/18 13:00 36.4 C L 77 96 H 178/77 H 96 08/05/18 12:00 76 15 154/80 H 97 Pain Intensity Right Knee: Pain Intensity: 0 Notes Mental Status: alert / awake / arousable and participated in evaluation Patient Amnestic to Procedure: Yes Nausea / Vomiting: adequately controlled Pain: adequately controlled Airway Patency, RR, SpO2: stable & adequate Hydration State: stable & adequate Neuraxial Anesthesia: was administered and sensory block is resolving Anesthetic Complications: no major complications apparent and Pt Satisfied with anesthetic care
--- NOTE | 2018-08-11 14:51 | Discharge Summary ---
ADMITTING PHYSICIAN AND SURGEON: Dr. Dutch Pride. 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 SURGERY PERFORMED: Right partial knee replacement. 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 CONSULTS: None obtained. HISTORY AND PHYSICAL EXAMINATION: Well documented in patient's chart. HOSPITAL COURSE: The patient was admitted on 08/05/2018 underwent a partial knee replacement. He tolerated procedure well. There were no complications. He was transferred to the PACU postoperatively and later the orthopedic floor for further care. He was given Ancef for antibiotic prophylaxis, MEHUL stockings, SCDs and aspirin for DVT prophylaxis. Hemoglobin, hematocrit and vital signs were monitored during his hospital stay and remained stable. Did not require any blood transfusions. There were no complications. By postoperative day 1, he was tolerating a diabetic diet. Pain was controlled with oral pain medicine. He was participating in physical therapy. On postop day 1, he was discharged home, set up with home health services, given printed discharge instructions including new prescriptions for extra strength Tylenol and tramadol. Continue his home medications with the exception of his home dose of Tylenol, which was changed. Continue physical therapy, weightbearing as tolerated, MEHUL stockings. Follow up approximately 2 weeks postoperatively or sooner if there any problems or concerns.
== END 2018-08-06 12:05 | disposition home health service (06) | DRG 470 ==
LOC: ASU 05:15 → 3E 09:13

== ENCOUNTER 2019-06-09 19:02 | Inpatient (IN) ==
[2019-06-09] MEDS ORDERED: LABETALOL HCL IV 5 MG/ML 20ML IV PRN (19:18)
[2019-06-09] MEDS ORDERED: LABETALOL HCL IV 5 MG/ML 20ML IV ONE (19:18)
[2019-06-09 19:34] LABS: Basophils # (auto) 0.05 K/uL (0-0.2); Eosinophils # (auto) 0.45 K/uL (0-0.5); Eosinophils % (auto) 8.7 %; Hematocrit (blood only) 43.9 % (42-52); Hemoglobin 14.3 g/dL (14.0-18.0); Immature Granulocytes # (auto) 0.02 K/uL (0.00-0.02); Immature Granulocytes % (auto) 0.4 %; Lymphocytes # (auto) 1.38 K/uL (1.2-3.4); Lymphocytes % (auto) 26.7 %; Mean Corpuscular Hemoglobin 29.9 pg (25-34); Mean Corpuscular Hgb Conc 32.6 g/dL (32-36); Mean Corpuscular Volume 91.8 fL (80-100); Mean Platelet Volume 10.1 fL (7.4-10.4); Monocytes # (auto) 0.53 K/uL (0.11-0.59); Monocytes % (auto) 10.3 %; Neutrophils # (auto) 2.74 K/uL (1.4-6.5); Neutrophils % (auto) 52.9 %; Platelet Count 162 K/uL (130-400); RDW Coefficient of Variation 15.5 % (11.5-14.5); RDW Standard Deviation 51.7 fL (36.4-46.3); Red Blood Count 4.78 M/uL (4.7-6.1); White Blood Count 5.17 K/uL (4.8-10.8)
--- NOTE | 2019-06-09 19:39 | CT Scan Report ---
CT head/brain wo con CLINICAL HISTORY: 84 years-old Male with Stroke evaluation . Acute strokelike symptoms TECHNIQUE: Multiple axial CT images of the head were obtained without contrast. A dose lowering tech nique was utilized adhering to the principles of ALARA. CT DOSE: 537.48 mGy.cm COMPARISON: None. FINDINGS: No acute intracranial hemorrhage, midline shift, intracranial mass, hydrocephalus, territorial ischem ia or abnormal extra-axial collection. Age-related involutional changes. Patchy white matter hypodens ities suggest chronic microvascular ischemic disease. Cerebral vascular calcifications are noted. The calvarium is intact. Mild mucosal thickening of the ethmoid air cells. Mastoid air cells are nelli ar. Soft tissues and orbits are unremarkable. IMPRESSION: No acute intracranial abnormality. The above report was generated using voice recognition software. It may contain grammatical, syntax o r spelling errors. Electronically signed by: Saravanan Rodriguez M.D. 06/09/2019 7:36 PM
[2019-06-09 19:44] LABS: INR 1.1 (0.9-1.1); Prothrombin Time 10.9 Seconds (9.0-12.0)
[2019-06-09] MEDS ORDERED: ASPIRIN CHEW 324 MG PO STA (19:48)
[2019-06-09 19:49] LABS: Alanine Aminotransferase 29 U/L (12-78); Aspartate Aminotransferase 27 U/L (15-37); BUN Creatinine Ratio 12.8 (10-20); Blood Urea Nitrogen 20 mg/dl (7-18); Calcium 9.4 mg/dl (8.5-10.1); Carbon Dioxide 30 mmol/L (21-32); Chloride 101 mmol/L (98-107); Creatinine Clr Calc Pharmacy 44.4 ml/min; Est GFR (African American) 46.9; Est GFR (Non-African American) 40.5; Glucose 145 mg/dl (70-99); Magnesium 1.6 mg/dl (1.8-2.4); Potassium 4.5 mmol/L (3.5-5.1); Sodium 136 mmol/L (136-145)
[2019-06-09 19:54] LABS: Albumin Globulin Ratio 1.1 (0.9-2); Alkaline Phosphatase 97 U/L (45-117); Bilirubin,Total 0.4 mg/dl (0.2-1); Globulin 3.7 gm/dl (2.5-4.0); Total Protein 7.7 gm/dl (6.4-8.2); Troponin I < 0.015 ng/ml (0-0.045)
[2019-06-09] MEDS ORDERED: MAGNESIUM SULFATE / D5W 1 GM/100 ML BAG IV ONE (19:56)
[2019-06-09] MEDS ORDERED: ASPIRIN 81 MG CHEW ONE (20:06)
--- NOTE | 2019-06-09 20:53 | Emergency Department Note ---
Entered by Luann Joshi acting as a scribe for History of Present Illness General Chief complaint: Stroke/CVA Symptoms Stated complaint: SLURRED SPEECH, LEANING TO SIDE, ARMS TO RIGHT Time Seen by Provider: 06/09/19 19:12 Source: patient Limitations: no limitations History of Present Illness Provider complaint: Stroke symptoms Onset (ago): minute(s) 45 Location: head and left Pain Consistency: + other (improving) Maximum Pain Intensity: 5 Quality: + constant Associated symptoms: + headaches and + other (Positive: slurred speech, left sided weakness) The patient is an 84 year old male with past medical history of TIA, HTN, DM, CAD, BPH, who presents to the ED with complaints of improving stroke symptoms that started 45 minutes ago. The patient reports he started having slurred speech at a viewing about 45 minutes ago which worsened 15 minutes ago. He states he was unable to pronounce his words and currently has a headache. The patient notes that his son noticed that his left side was weak. The patient states that his symptoms seem now to have nearly resolved. Home Medications Home Medications Medication Instructions Recorded Confirmed Type Januvia 100 mg PO QAM 06/12/18 06/09/19 History Probiotic 3,000 mmu cells PO QAM 06/12/18 06/09/19 History albuterol sulfate 2 puff INHALATION Q6H PRN 06/12/18 06/09/19 History allopurinol 300 mg PO QAM 06/12/18 06/09/19 History aspirin 81 mg PO DAILY 06/12/18 06/09/19 History celecoxib [Celebrex] 200 mg PO BID PRN 06/12/18 06/09/19 History glipizide 10 mg PO BID 06/12/18 06/09/19 History metoprolol succinate 100 mg PO QAM 06/12/18 06/09/19 History olmesartan 40 mg PO QAM 06/12/18 06/09/19 History tamsulosin 0.4 mg PO QAM 06/12/18 06/09/19 History fluticasone furoate-vilanterol 1 ea INHALATION DAILY 06/09/19 06/09/19 History [Breo Ellipta] repaglinide [Prandin] 2 mg PO BID 06/09/19 06/09/19 History repaglinide [Prandin] 4 mg PO QPM 06/09/19 06/09/19 History Allergies Allergy/AdvReac Type Severity Reaction Status Date / Time indomethacin Allergy Unknown LOWERED Verified 06/09/19 20:10 WHITE CELL COUNT metformin AdvReac Unknown pt unsure Verified 06/09/19 20:10 why Past Med/Surg History Medical History BPH (benign prostatic hyperplasia) CAD (coronary artery disease) s/p stent to RCA x 1 2009 Chronic obstructive pulmonary disease very rare albuterol use. Daily Advair, stable. Diabetes mellitus, type 2 Hyperlipidemia Hypertension Neuropathy LEFT LOWER LEG/FOOT. PT STATES HE HAS DROP FOOT. Osteoarthritis Sleep apnea PT HAS CPAP DEVICE, DOES NOT CURRENTLY WEAR. Transient ischemic attack (TIA) JANUARY 2018. NO RESIDUAL. Surgical History Fusion of spine LUMBAR History of cardiac cath 2009. STENT X1. [facility] History of carotid endarterectomy LEFT. 2018 in [place] History of cholecystectomy History of colonoscopy History of tonsillectomy Family History (Updated 06/09/19 @ 19:25 by Luann Joshi) Other Family history non-contributory Social History Preferred Language: Kazakh Communication Ability: Effective Fringe Weaver Required: No Beliefs That Will Affect Care: None Current Living Situation: Spouse Other Information That Helps Us Care for You: No Feels Safe at Home: Yes Safety Concerns: Feels Safe At This Time Smoking Status: Never smoker Tobacco Type: cigarettes ; Cigarettes Per Day: H/O up to 2ppd ; Second Hand Exposure: No ; Hx Alcohol Use: Yes Alcohol type: beer Hx Substance Use: No Review of Systems See HPI for pertinent positives & negatives. and A total of 10 systems reviewed and were otherwise negative Physical Exam Vital Signs Vital Signs - 24 hr 06/09/19 19:13 06/09/19 19:15 06/09/19 19:31 Temperature 36.6 C Temperature Source Oral Pulse Rate 115 H 108 H 92 H Pulse Rate from SpO2 Sensor 95 H Respiratory Rate 16 24 23 Respiratory Effort / Characteristics Non-Labored Spontaneous Respiratory Depth Normal Respiratory Pattern Regular Blood Pressure 201/102 H 236/124 H 183/108 H Blood Pressure Mean 135 151 147 Pulse Oximetry 92 94 Oxygen Delivery Method Room Air Sepsis Recent Fever Within 48 Hours No Sepsis New/Unexplained Change in Mental Status No Sepsis Action Taken by Nursing No Action Required 06/09/19 19:38 06/09/19 19:41 06/09/19 19:51 Temperature Temperature Source Pulse Rate 94 H 94 H 90 Pulse Rate from SpO2 Sensor 95 H 94 H 94 H Respiratory Rate 24 23 25 H Respiratory Effort / Characteristics Respiratory Depth Respiratory Pattern Blood Pressure 172/87 H 175/89 H 125/77 Blood Pressure Mean 115 100 96 Pulse Oximetry 94 95 93 Oxygen Delivery Method Sepsis Recent Fever Within 48 Hours Sepsis New/Unexplained Change in Mental Status Sepsis Action Taken by Nursing 06/09/19 20:00 06/09/19 20:02 06/09/19 20:10 Temperature Temperature Source Pulse Rate 92 H 99 H 88 Pulse Rate from SpO2 Sensor 92 H 101 H 89 Respiratory Rate 28 H 21 26 H Respiratory Effort / Characteristics Respiratory Depth Respiratory Pattern Blood Pressure 188/97 H 185/97 H Blood Pressure Mean 131 113 Pulse Oximetry 92 94 93 Oxygen Delivery Method Sepsis Recent Fever Within 48 Hours Sepsis New/Unexplained Change in Mental Status Sepsis Action Taken by Nursing 06/09/19 20:11 06/09/19 20:21 06/09/19 20:26 Temperature Temperature Source Pulse Rate 88 88 87 Pulse Rate from SpO2 Sensor 89 86 87 Respiratory Rate 25 H 25 H 19 Respiratory Effort / Characteristics Respiratory Depth Respiratory Pattern Blood Pressure 187/104 H 187/104 H Blood Pressure Mean 152 152 Pulse Oximetry 94 95 94 Oxygen Delivery Method Sepsis Recent Fever Within 48 Hours Sepsis New/Unexplained Change in Mental Status Sepsis Action Taken by Nursing 06/09/19 20:31 06/09/19 20:41 Temperature Temperature Source Pulse Rate 88 92 H Pulse Rate from SpO2 Sensor 86 90 Respiratory Rate 18 20 Respiratory Effort / Characteristics Respiratory Depth Respiratory Pattern Blood Pressure 187/98 H 184/103 H Blood Pressure Mean 120 127 Pulse Oximetry 95 95 Oxygen Delivery Method Sepsis Recent Fever Within 48 Hours Sepsis New/Unexplained Change in Mental Status Sepsis Action Taken by Nursing GENERAL: Patient is in no acute distress. HEENT: No acute trauma, normocephalic atraumatic, mucous membranes moist, no nasal congestion, no scleral icterus. NECK: No stridor, no adenopathy, no meningismus, trachea is midline. LUNGS: Clear to auscultation bilaterally, no wheeze, no rhonchi, breath sounds equal. HEART: Mildly tachycardic rate, regular rhythm, no murmurs. ABDOMEN: Soft, nontender, bowel sounds positive, no hernias, no peritonitis. EXTREMITIES: No cyanosis or edema, full range of motion of all the joints without pain or difficulty, no signs for acute trauma. NEUROLOGIC: Oriented x 3, no acute motor or sensory deficits, no focal weakness. Subtle right facial droop. No speech slur. No cerebellar dysfunction or pronator drift. SKIN: No rash, no jaundice, no diaphoresis. Course Course 1911: The patient was evaluated in room A1. A complete history and physical exam was performed. 1922: I discussed the patients case with Dr. Shaver, [facility] stroke. He stated that since the patient is better, he would not sign on and do an evaluation. He said to give him a call back if any changes happen. He noted that his main concern is to control the patients high blood pressure. 1937: Dr. Rodriguez, Radiology, informed me that the patients head CT is negative. 1950: I discussed the patients case with Dr. Tamayo, [facility] Hospitalist. He will evaluate the patient for further management. Consultations Consultation #1: I discussed the patients case with [facility] stroke. He stated that since the patient is better, he would not sign on and do an evaluation. He said to give him a call back if any changes happen. He noted that his main concern is to control the patients high blood pressure. Time: 19:23 Consultation #2: I discussed the patients case with Dr. Tamayo, [facility] Hospitalist. He will evaluate the patient for further management. Time: 19:51 Administered Medications Heparin Sodium (Porcine) (Heparin Sodium (Porcine)) 5,000 units SQ Q12 COUNTS INCLUDE 234 BEDS AT THE [facility] Stop: 07/09/19 22:14 Last Admin: 06/09/19 23:07 Dose: 5,000 units Documented by: [id number] Cosigned by: [id number] Lorazepam (Ativan) 0.5 mg in 1 mls @ 0.5 mls/min IV TODAY@2200 COUNTS INCLUDE 234 BEDS AT THE [facility] Stop: 06/10/19 03:00 Last Admin: 06/09/19 23:17 Dose: 0.5 mls/min Documented by: [id number] Insulin Aspart (Novolog Flexpen) 0 units SC ACHS COUNTS INCLUDE 234 BEDS AT THE [facility] Stop: 07/09/19 22:14 Last Admin: 06/09/19 23:07 Dose: 3 units Documented by: [id number] Cosigned by: [id number] Labetalol HCl (Normodyne) 20 mg IV Q10M PRN PRN Reason: SBP above 185 or DBP above 110 Last Admin: 06/09/19 19:23 Dose: 20 mg Documented by: [id number] Cosigned by: [id number] Miscellaneous (Order Awaiting Action) 1 ea N/A QS JASMIN Stop: 07/09/19 21:59 Last Admin: 06/09/19 23:05 Dose: Not Given Documented by: [id number] Discontinued Medications Aspirin (Aspirin) 324 mg PO NOW STA Stop: 06/09/19 19:49 Last Admin: 06/09/19 20:02 Dose: 324 mg Documented by: [id number] Aspirin (Aspirin Chew) Confirm Administered Dose 81 mg .ROUTE .STK-MED ONE Stop: 06/09/19 20:07 Last Admin: 06/09/19 20:09 Dose: Not Given Documented by: [id number] Magnesium Sulfate/Dextrose (Magnesium Sulfate / D5w) 1 gm in 100 mls @ 100 mls/hr IV ONE ONE Stop: 06/09/19 20:55 Last Infusion: 06/09/19 21:15 Dose: 0 mls/hr Documented by: [id number] Admin: 06/09/19 20:15 Dose: 100 mls/hr Documented by: [id number] Labetalol HCl (Normodyne) Confirm Administered Dose 5 mg IV .STK-MED ONE Stop: 06/09/19 19:19 Last Admin: 06/09/19 19:23 Dose: Not Given Documented by: [id number] Critical Care Time Critical Care Time: Yes Total Critical Care Time: 32 I have personally spent 32 minutes of critical care time in the direct management of this patient. This includes bedside care, interpretation of diagnostic studies, and testing, discussion with consultants, patient, and family members, and other required patient management activities. This 32 mi nutes is in excess of all separately billable procedures. Medical Decision Making Differential Diagnosis Differential Diagnosis: Stroke, TIA, intracranial bleeding, uncontrolled hypertension, infection, electrolyte imbalance, anemia, dehydration. Medical Records Attestation: I reviewed the patient's medical records. Home Medications Current Medication List: was personally reviewed by me Laboratory Data Attestation: I reviewed the patient's lab results. Result diagrams: 06/09/19 19:15 06/09/19 19:15 Lab Results 06/09/19 06/09/19 06/09/19 Range/Units 19:15 19:15 19:15 WBC 5.17 (4.8-10.8) K/uL RBC 4.78 (4.7-6.1) M/uL Hgb 14.3 (14.0-18.0) g/dL Hct 43.9 (42-52) % MCV 91.8 (80-100) fL MCH 29.9 (25-34) pg MCHC 32.6 (32-36) g/dL RDW Std Deviation 51.7 H (36.4-46.3) fL RDW Coeff of Reji 15.5 H (11.5-14.5) % Plt Count 162 (130-400) K/uL MPV 10.1 (7.4-10.4) fL Immature Gran % (Auto) 0.4 % Neut % (Auto) 52.9 % Lymph % (Auto) 26.7 % Graham % (Auto) 10.3 % Eos % (Auto) 8.7 % Baso % (Auto) 1.0 % Immature Gran # (Auto) 0.02 (0.00-0.02) K/uL Neut # (Auto) 2.74 (1.4-6.5) K/uL Lymph # (Auto) 1.38 (1.2-3.4) K/uL Graham # (Auto) 0.53 (0.11-0.59) K/uL Eos # (Auto) 0.45 (0-0.5) K/uL Baso # (Auto) 0.05 (0-0.2) K/uL PT 10.9 (9.0-12.0) Seconds INR 1.1 (0.9-1.1) APTT 26.0 (21.0-31.0) Seconds PTT Ratio 1.0 Sodium 136 (136-145) mmol/L Potassium 4.5 (3.5-5.1) mmol/L Chloride 101 (98-107) mmol/L Carbon Dioxide 30 (21-32) mmol/L Anion Gap 5.0 (3-11) BUN 20 H (7-18) mg/dl Creatinine 1.56 H (0.6-1.4) mg/dl Est Cr Clr Drug Dosing 44.4 ml/min Est GFR ( Amer) 46.9 Est GFR (Non-Af Amer) 40.5 BUN/Creatinine Ratio 12.8 (10-20) Glucose 145 H (70-99) mg/dl POC Glucose (70-99) Calcium 9.4 (8.5-10.1) mg/dl Magnesium 1.6 L (1.8-2.4) mg/dl Total Bilirubin 0.4 (0.2-1) mg/dl AST 27 (15-37) U/L ALT 29 (12-78) U/L Alkaline Phosphatase 97 (45-117) U/L Troponin I < 0.015 (0-0.045) ng/ml Total Protein 7.7 (6.4-8.2) gm/dl Albumin 4.0 (3.4-5.0) gm/dl Globulin 3.7 (2.5-4.0) gm/dl Albumin/Globulin Ratio 1.1 (0.9-2) Blood Type Antibody Screen 06/09/19 06/09/19 Range/Units 19:15 19:19 WBC (4.8-10.8) K/uL RBC (4.7-6.1) M/uL Hgb (14.0-18.0) g/dL Hct (42-52) % MCV (80-100) fL MCH (25-34) pg MCHC (32-36) g/dL RDW Std Deviation (36.4-46.3) fL RDW Coeff of Reji (11.5-14.5) % Plt Count (130-400) K/uL MPV (7.4-10.4) fL Immature Gran % (Auto) % Neut % (Auto) % Lymph % (Auto) % Graham % (Auto) % Eos % (Auto) % Baso % (Auto) % Immature Gran # (Auto) (0.00-0.02) K/uL Neut # (Auto) (1.4-6.5) K/uL Lymph # (Auto) (1.2-3.4) K/uL Graham # (Auto) (0.11-0.59) K/uL Eos # (Auto) (0-0.5) K/uL Baso # (Auto) (0-0.2) K/uL PT (9.0-12.0) Seconds INR (0.9-1.1) APTT (21.0-31.0) Seconds PTT Ratio Sodium (136-145) mmol/L Potassium (3.5-5.1) mmol/L Chloride (98-107) mmol/L Carbon Dioxide (21-32) mmol/L Anion Gap (3-11) BUN (7-18) mg/dl Creatinine (0.6-1.4) mg/dl Est Cr Clr Drug Dosing ml/min Est GFR ( Amer) Est GFR (Non-Af Amer) BUN/Creatinine Ratio (10-20) Glucose (70-99) mg/dl POC Glucose 140 H (70-99) Calcium (8.5-10.1) mg/dl Magnesium (1.8-2.4) mg/dl Total Bilirubin (0.2-1) mg/dl AST (15-37) U/L ALT (12-78) U/L Alkaline Phosphatase (45-117) U/L Troponin I (0-0.045) ng/ml Total Protein (6.4-8.2) gm/dl Albumin (3.4-5.0) gm/dl Globulin (2.5-4.0) gm/dl Albumin/Globulin Ratio (0.9-2) Blood Type O Positive Antibody Screen NEGATIVE Imaging Data Radiologist's Impression: Radiology results as stated below per my review and the radiologist's interpretation: CT head/brain wo con CLINICAL HISTORY: 84 years-old Male with Stroke evaluation . Acute strokelike symptoms TECHNIQUE: Multiple axial CT images of the head were obtained without contrast. A dose lowering technique was utilized adhering to the principles of ALARA. CT DOSE: 537.48 mGy.cm COMPARISON: None. FINDINGS: No acute intracranial hemorrhage, midline shift, intracranial mass, hydrocephalus, territorial ischemia or abnormal extra-axial collection. Age- related involutional changes. Patchy white matter hypodensities suggest chronic microvascular ischemic disease. Cerebral vascular calcifications are noted. The calvarium is intact. Mild mucosal thickening of the ethmoid air cells. Mastoid air cells are clear. Soft tissues and orbits are unremarkable. IMPRESSION: No acute intracranial abnormality. The above report was generated using voice recognition software. It may contain grammatical, syntax or spelling errors. Electronically signed by: Saravanan Rodriguez M.D. 06/09/2019 7:36 PM ECG Data Attestation: I personally reviewed and interpreted this ECG as follows: Indication: + tachycardia Rate (beats per minute): 90 Rhythm: + sinus rhythm ECG ST segments: no ST elevation ECG Findings: + PACs and + Other (QTC 428) Blood Pressure Blood Pressure Findings: Elevated blood pressure Blood Pressure Disposition: further management by hospitalist MDM Narrative There is no leukocytosis or concerning anemia. No coagulopathy. There is some mild renal insufficiency with a creatinine of 1.56. Magnesium was low at 1.6. No worrisome liver enzyme elevation. EKG shows a sinus rhythm, no acute ischemia. Cardiac enzyme testing x1 is not consistent with acute cardiac injury. Brain CT shows no acute bleed or mass-effect. On exam, the patient had a subtle right facial droop, no extremity deficits, no speech slur. His symptoms seemed to have improved markedly before I did my evaluation. A stroke alert was called. I did speak with the stroke neurologist at [facility]. The patient will not be seen by the stroke neurologist as the patient symptoms have resolved. Upon my arrival in the room, the patient's blood pressure was quite high. He was given 20 mg of IV labetalol. This reduced the blood pressure nicely. The patient was given 1 g of IV magnesium for the lower magnesium value. He was given oral aspirin. Patient has remained asymptomatic. His family believes he is back to baseline. Certainly, his presentation is consistent with TIA or mini stroke. The higher blood pressure of course could also have caused his presentation. Of note, the family believes he may have had some speech issues a few times over the last several days however, the episodes were very short-lived. The patient requires a hospital stay. I spoke to the case management group, I talked with the patient and his family. The on-call hospitalist was consulted. Impression & Plan Stroke-like symptoms, Difficulty with speech, Hypertension, uncontrolled, Hypomagnesemia Discharge Plan Visit Data *Final* Discharge Date/Time: 06/09/19 21:11 Chief Complaint: Stroke/CVA Symptoms Stated Complaint: SLURRED SPEECH, LEANING TO SIDE, ARMS TO RIGHT ED Provider: Jhon Rios Discharge Problem: Stroke-like symptoms, Difficulty with speech, Hypertension, uncontrolled, Hypomagnesemia Patient Disposition: Admitted As Inpatient Discharge Instructions Interventions: ED Discharge Assessment Last Done: 06/09/19 21:11 The scribe's documentation has been prepared under my direction and personally reviewed by me in its entirety. I confirm that the note above accurately reflects all work, treatment, procedures, and medical decision making performed by me.
--- NOTE | 2019-06-09 20:56 | History & Physical Report ---
Date of Service June 09, 2019 Assessment & Plan (1) Transient ischemic attack (TIA): Initial TIA was without residual January 2018. Strokelike symptoms this time primarily consists of slurred speech. The symptoms resolved in each case spontaneously. We will admit to hospital with ischemic stroke without TPA protocol. Present on Admission?: Yes (2) Stroke-like symptoms: See above Present on Admission?: Yes (3) Difficulty with speech: See above Present on Admission?: Yes (4) Diabetes mellitus, type 2: Check a hemoglobin A1c. Hold repaglinide, Januvia and glipizide. Place on Accu-Cheks before meals and at bedtime with NovoLog coverage per scale Present on Admission?: Yes (5) Hyperlipidemia: Check a fasting lipid panel on patient is not listed as being on any medication at this time. Present on Admission?: Yes (6) CAD (coronary artery disease): CAD/hypertension- Blood pressure initially elevated into the systolic 180s, that did improve with labetalol IV given by ED. We will continue metoprolol succinate and on olmesartan with hold parameters. Present on Admission?: Yes (7) Hypertension: See above Present on Admission?: Yes (8) Chronic obstructive pulmonary disease: Continue Breo Ellipta and albuterol sulfate as needed Present on Admission?: Yes (9) BPH (benign prostatic hyperplasia): Continue tamsulosin Present on Admission?: Yes History of Present Illness Chief Complaint: The patient is brought to the emergency department due to symptoms of slurring of speech that began about 45 minutes prior to arrival. Primary Care Provider: Alen Vigil The patient is a 84-year-old male with a past medical history including CAD, diabetes mellitus, hypertension, BPH and TIA, who presents to the emergency department with improving slurred speech that began about 45 minutes prior to arrival. By the time of arrival in ED, the patient's symptoms have completely resolved. His family reports that over the past few days, he may have had some initial brief symptoms, that they are only aware of in retrospect at this time. The patient is unaware of his symptoms this time, as he had been during his previous TIA. He has not had a recent travels or sick exposures. Allergies Allergy/AdvReac Type Severity Reaction Status Date / Time indomethacin Allergy Unknown LOWERED Verified 06/09/19 20:10 WHITE CELL COUNT metformin AdvReac Unknown pt unsure Verified 06/09/19 20:10 why Home Medications Home Medications Medication Instructions Recorded Confirmed Type Januvia 100 mg PO QAM 06/12/18 06/09/19 History Probiotic 3,000 mmu cells PO QAM 06/12/18 06/09/19 History albuterol sulfate 2 puff INHALATION Q6H PRN 06/12/18 06/09/19 History allopurinol 300 mg PO QAM 06/12/18 06/09/19 History aspirin 81 mg PO DAILY 06/12/18 06/09/19 History celecoxib [Celebrex] 200 mg PO BID PRN 06/12/18 06/09/19 History glipizide 10 mg PO BID 06/12/18 06/09/19 History metoprolol succinate 100 mg PO QAM 06/12/18 06/09/19 History olmesartan 40 mg PO QAM 06/12/18 06/09/19 History tamsulosin 0.4 mg PO QAM 06/12/18 06/09/19 History fluticasone furoate-vilanterol 1 ea INHALATION DAILY 06/09/19 06/09/19 History [Breo Ellipta] repaglinide [Prandin] 2 mg PO BID 06/09/19 06/09/19 History repaglinide [Prandin] 4 mg PO QPM 06/09/19 06/09/19 History Past Med/Surg History Medical History BPH (benign prostatic hyperplasia) CAD (coronary artery disease) s/p stent to RCA x 1 2009 Chronic obstructive pulmonary disease very rare albuterol use. Daily Advair, stable. Diabetes mellitus, type 2 Hyperlipidemia Hypertension Neuropathy LEFT LOWER LEG/FOOT. PT STATES HE HAS DROP FOOT. Osteoarthritis Sleep apnea PT HAS CPAP DEVICE, DOES NOT CURRENTLY WEAR. Transient ischemic attack (TIA) JANUARY 2018. NO RESIDUAL. Surgical History Fusion of spine LUMBAR History of cardiac cath 2009. STENT X1. [facility] History of carotid endarterectomy LEFT. 2018 in [place] History of cholecystectomy History of colonoscopy History of tonsillectomy Family History (Updated 06/09/19 @ 19:25 by Luann Joshi) Other Family history non-contributory Social History Preferred Language: Hong Konger Communication Ability: Effective Natural Resources Instructor Required: No Beliefs That Will Affect Care: None Current Living Situation: Spouse Other Information That Helps Us Care for You: No Feels Safe at Home: Yes Safety Concerns: Feels Safe At This Time Smoking Status: Never smoker Tobacco Type: cigarettes ; Cigarettes Per Day: H/O up to 2ppd ; Second Hand Exposure: No ; Hx Alcohol Use: Yes Alcohol type: beer Hx Substance Use: No Review of Systems Review of Systems: The patient denies chest pain, palpitations, shortness of breath, dyspnea on exertion, cough, lower extremity swelling, sore throat, fevers, chills, sweats, nausea, vomiting, diarrhea , constipation, abdominal pain, pelvic pain, blood in urine or stool, dysuria, urinary frequency or urgency, lightheadedness, dizziness, loss of consciousness, rash, abnormal bruising or bleeding, imbalance, focal weakness, numbness or tingling in arms or legs, generalized arthralgias or myalgias, back or neck pain, or night sweats. The review of systems is otherwise negative other than for that already noted above, and at least 10 systems have been reviewed. Physical Exam Physical Exam: The patient is awake, alert and oriented 3, well developed and well nourished, normocephalic and atraumatic, lying in bed and in no acute distress. HEENT--PERRL, EOMI, mucous membranes and oropharynx dry. Neck--supple. No JVD. No bruits. Thyroid normal, trachea midline, no adenopathy. Heart--normal S1 and S2. No murmurs, rubs or gallops. Lungs--clear bilaterally, no respiratory distress, no accessory muscle use. Abdomen--normal bowel sounds and soft. Nontender. Nondistended, no hernias or masses, no organomegaly. Extremities--no cyanosis or clubbing. No edema. There are good distal pulses b/l. Dermatologic--normal skin turgor, normal color, no abnormal lymph nodes, no rash. Neurologic--cranial nerves II through XII grossly intact. Rheumatologic--normal range of motion. Psychiatric--normal affect. Results & Data Vital Signs (Past 12 Hours) Vital Signs Temp Pulse Resp BP Pulse Ox 06/09/19 20:51 91 H 12 94 06/09/19 20:50 94 H 18 184/101 H 94 06/09/19 20:41 92 H 20 184/103 H 95 06/09/19 20:31 88 18 187/98 H 95 06/09/19 20:26 87 19 187/104 H 94 06/09/19 20:21 88 25 H 187/104 H 95 06/09/19 20:11 88 25 H 94 06/09/19 20:10 88 26 H 185/97 H 93 06/09/19 20:02 99 H 21 188/97 H 94 06/09/19 20:00 92 H 28 H 92 06/09/19 19:51 90 25 H 125/77 93 06/09/19 19:41 94 H 23 175/89 H 95 06/09/19 19:38 94 H 24 172/87 H 94 06/09/19 19:31 92 H 23 183/108 H 94 06/09/19 19:15 108 H 24 236/124 H 06/09/19 19:13 97.9 F 115 H 16 201/102 H 92 Laboratory Results Laboratory Results WBC 5.17 K/uL (4.8-10.8) 06/09/19 19:15 RBC 4.78 M/uL (4.7-6.1) 06/09/19 19:15 Hgb 14.3 g/dL (14.0-18.0) 06/09/19 19:15 Hct 43.9 % (42-52) 06/09/19 19:15 MCV 91.8 fL (80-100) 06/09/19 19:15 MCH 29.9 pg (25-34) 06/09/19 19:15 MCHC 32.6 g/dL (32-36) 06/09/19 19:15 RDW Std Deviation 51.7 fL (36.4-46.3) H 06/09/19 19:15 RDW Coeff of Reji 15.5 % (11.5-14.5) H 06/09/19 19:15 Plt Count 162 K/uL (130-400) 06/09/19 19:15 MPV 10.1 fL (7.4-10.4) 06/09/19 19:15 Immature Gran % (Auto) 0.4 % 06/09/19 19:15 Neut % (Auto) 52.9 % 06/09/19 19:15 Lymph % (Auto) 26.7 % 06/09/19 19:15 [place] % (Auto) 10.3 % 06/09/19 19:15 Eos % (Auto) 8.7 % 06/09/19 19:15 Baso % (Auto) 1.0 % 06/09/19 19:15 Immature Gran # (Auto) 0.02 K/uL (0.00-0.02) 06/09/19 19:15 Neut # (Auto) 2.74 K/uL (1.4-6.5) 06/09/19 19:15 Lymph # (Auto) 1.38 K/uL (1.2-3.4) 06/09/19 19:15 [place] # (Auto) 0.53 K/uL (0.11-0.59) 06/09/19 19:15 Eos # (Auto) 0.45 K/uL (0-0.5) 06/09/19 19:15 Baso # (Auto) 0.05 K/uL (0-0.2) 06/09/19 19:15 ESR 23 mm/hr (0-14) H 06/09/19 21:44 PT 11.0 Seconds (9.0-12.0) 06/09/19 21:44 INR 1.1 (0.9-1.1) 06/09/19 21:44 APTT 24.9 Seconds (21.0-31.0) 06/09/19 21:44 PTT Ratio 0.9 06/09/19 21:44 Sodium 136 mmol/L (136-145) 06/09/19 19:15 Potassium 4.5 mmol/L (3.5-5.1) 06/09/19 19:15 Chloride 101 mmol/L (98-107) 06/09/19 19:15 Carbon Dioxide 30 mmol/L (21-32) 06/09/19 19:15 Anion Gap 5.0 (3-11) 06/09/19 19:15 BUN 20 mg/dl (7-18) H 06/09/19 19:15 Creatinine 1.56 mg/dl (0.6-1.4) H 06/09/19 19:15 Est Cr Clr Drug Dosing 44.4 ml/min 06/09/19 19:15 Est GFR ( Amer) 46.9 06/09/19 19:15 Est GFR (Non-Af Amer) 40.5 06/09/19 19:15 BUN/Creatinine Ratio 12.8 (10-20) 06/09/19 19:15 Glucose 145 mg/dl (70-99) H 06/09/19 19:15 POC Glucose 165 (70-99) H 06/09/19 21:55 Calcium 9.4 mg/dl (8.5-10.1) 06/09/19 19:15 Magnesium 1.6 mg/dl (1.8-2.4) L 06/09/19 19:15 Total Bilirubin 0.4 mg/dl (0.2-1) 06/09/19 19:15 AST 27 U/L (15-37) 06/09/19 19:15 ALT 29 U/L (12-78) 06/09/19 19:15 Alkaline Phosphatase 97 U/L (45-117) 06/09/19 19:15 Troponin I 0.015 ng/ml (0-0.045) 06/09/19 21:44 Total Protein 7.7 gm/dl (6.4-8.2) 06/09/19 19:15 Albumin 4.0 gm/dl (3.4-5.0) 06/09/19 19:15 Globulin 3.7 gm/dl (2.5-4.0) 06/09/19 19:15 Albumin/Globulin Ratio 1.1 (0.9-2) 06/09/19 19:15 Blood Type O Positive 06/09/19 19:15 Antibody Screen NEGATIVE 06/09/19 19:15 Diagnostic Findings [place], [place] [phone] CT Scan Report Patient: QUAN LAINEZ Date: 06/09/19 MR#: [id number]: Hadley GIVENS Acct ID:[id number]: Date: 1935[facility] Zip: [place] [address] Age: 84Location: ED Sex: M Room/Bed: Att Phy:Diagnosis: SLURRED SPEECH, LEANING TO SIDE, ARMS TO RIGHT [place] Phy: Yaritza, Alen S,D.O.Service Date: 06/09/19 [facility] Phy:Interpreting Phy: Fercho Rodriguez Admit Phy: Ordering Phy: Jhon Rios M.D. cc: ~ CT head/brain wo con CLINICAL HISTORY: 84 years-old Male with Stroke evaluation . Acute strokelike symptoms TECHNIQUE: Multiple axial CT images of the head were obtained without contrast. A dose lowering technique was utilized adhering to the principles of ALARA. CT DOSE: 537.48 mGy.cm COMPARISON: None. FINDINGS: No acute intracranial hemorrhage, midline shift, intracranial mass, hydrocephalus, territorial ischemia or abnormal extra-axial collection. Age- related involutional changes. Patchy white matter hypodensities suggest chronic microvascular ischemic disease. Cerebral vascular calcifications are noted. The calvarium is intact. Mild mucosal thickening of the ethmoid air cells. Mastoid air cells are clear. Soft tissues and orbits are unremarkable. IMPRESSION: No acute intracranial abnormality. The above report was generated using voice recognition software. It may contain grammatical, syntax or spelling errors. Electronically signed by: Saravanan Rodriguez M.D. 06/09/2019 7:36 PM Dictated: 06/09/191933 Transcribed: 06/09/191933 Code Status & VTE Plan Code Status Full code VTE Prophylaxis Plan VTE Prophylaxis will be ordered: Yes PG Care Time/CCT Total # of Minutes Spent Total Time Spent with Patient: Total time spent is greater than 50% in coordination of care (as documented) at patient's floor/unit and/or counseling patient:
[2019-06-09] MEDS ORDERED: DEXTROSE 50% 50 ML SYRINGE IV PRN (21:34)
[2019-06-09] MEDS ORDERED: GLUCOSE 10 TABS/TUBE PO PRN (21:34)
[2019-06-09] MEDS ORDERED: ALBUTEROL HFA 8 GM INHALER INH PRN (21:34)
[2019-06-09] MEDS ORDERED: GLUCAGON FOR INJ 1 MG VIAL SQ PRN (21:34)
[2019-06-09] MEDS ORDERED: GLUCOSE 40% GEL 15 GM TUBE PO PRN (21:34)
[2019-06-09] MEDS ORDERED: PHARMACIST DISCHARGE MED REC CONSULT PRN (21:34)
[2019-06-09] MEDS ORDERED: ONDANSETRON INJ 2 MG/ML 2 ML VIAL IV PRN (21:34)
[2019-06-09] MEDS ORDERED: CARBOHYDRATES FOR HYPOGLYCEMIA PO PRN (21:34)
[2019-06-09] MEDS ORDERED: LORazepam 0.5 MG/1 ML VIAL IV SCH (22:00)
[2019-06-09 22:19] LABS: INR 1.1 (0.9-1.1); Partial Thromboplastin Ratio 0.9; Partial Thromboplastin Time 24.9 Seconds (21.0-31.0)
[2019-06-09] MEDS: INSULIN ASPART 100 UNITS/ML 3 ML PEN SC SCH (23:07)
[2019-06-09] MEDS: HEPARIN SOD 5,000 UNIT/0.5 ML VIAL SQ SCH (23:07)
[2019-06-10 06:04] LABS: Basophils # (auto) 0.01 K/uL (0-0.2); Basophils % (auto) 0.2 %; Eosinophils % (auto) 8.7 %; Hematocrit (blood only) 38.4 % (42-52); Hemoglobin 12.5 g/dL (14.0-18.0); Immature Granulocytes # (auto) 0.02 K/uL (0.00-0.02); Immature Granulocytes % (auto) 0.4 %; Lymphocytes # (auto) 1.82 K/uL (1.2-3.4); Lymphocytes % (auto) 39.6 %; Mean Corpuscular Hemoglobin 29.8 pg (25-34); Mean Corpuscular Hgb Conc 32.6 g/dL (32-36); Mean Corpuscular Volume 91.4 fL (80-100); Mean Platelet Volume 9.9 fL (7.4-10.4); Monocytes # (auto) 0.54 K/uL (0.11-0.59); Monocytes % (auto) 11.7 %; Neutrophils # (auto) 1.81 K/uL (1.4-6.5); Neutrophils % (auto) 39.4 %; Platelet Count 146 K/uL (130-400); RDW Coefficient of Variation 15.5 % (11.5-14.5); RDW Standard Deviation 51.6 fL (36.4-46.3)
[2019-06-10 06:34] LABS: BUN Creatinine Ratio 12.6 (10-20); Calcium 8.7 mg/dl (8.5-10.1); Creatinine Clr Calc Pharmacy 46.4 ml/min; Est GFR (African American) 49.2; Est GFR (Non-African American) 42.4
--- NOTE | 2019-06-10 06:38 | Magnetic Resonance Report ---
MRI OF THE BRAIN WITHOUT CONTRAST CLINICAL HISTORY: Transient ischemic attack COMPARISON STUDY: Noncontrast head CT dated 06/09/2019 FINDINGS: Sagittal T1, axial diffusion, proton density and T2 weighted axial, coronal FLAIR, and axial T1-weigh tasha images were acquired. No intra or extra-axial mass lesions are visualized Axial diffusion-weighted images reveal no evidence of acute or subacute infarction. There is no evidence of ventricular dilatation. Proton density T2-weighted and FLAIR images reveal scattered foci of increased T2 signal within the w justin matter, likely on a small vessel basis. There is an old lacunar right thalamic infarct There is a dominant right vertebral artery. The left vertebral appears hypoplastic.. IMPRESSION: 1. No acute intracranial findings 2. No evidence of intracranial mass 3. No evidence of acute or subacute infarction 4. Old right thalamic lacunar infarct. White matter T2 hyperintensities likely on a small vessel basi s Electronically signed by: Luisito Kirkland M.D. 06/10/2019 6:37 AM
--- NOTE | 2019-06-10 06:45 | Ultrasound Report ---
CAROTID ARTERY ULTRASOUND CLINICAL HISTORY: Transient ischemic attack. Status post left endarterectomy. COMPARISON STUDY: None. TECHNIQUE: Real-time, grayscale, and color Doppler sonography of the carotid and vertebral arteries w as performed. Images were viewed in the transverse and longitudinal planes. FINDINGS: There is extensive atherosclerotic plaque present within the distal right common carotid artery and p roximal right internal carotid artery. Velocity measurements are listed below. COMMON CAROTID PEAK SYSTOLIC VELOCITY (CM/S): RIGHT 70 LEFT T9 ICA PEAK SYSTOLIC VELOCITY (CM/S): RIGHT 166 LEFT 125 Peak systolic velocities between the internal to common carotid arteries are elevated. Antegrade flow is seen in the vertebral arteries. The external carotid arteries are patent. Blood pressure was not identified due to IV site. IMPRESSION: 1. 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 Extensive ca lcified atherosclerotic plaque. 2. Borderline elevated velocity within the proximal left internal carotid artery. Restenosis cannot b e excluded. Electronically signed by: Chano Tyler M.D. 06/10/2019 6:44 AM
--- NOTE | 2019-06-10 07:25 | Magnetic Resonance Report ---
MR angio head wo con CLINICAL HISTORY: 84 years-old Male presenting with episode of slurred speech for half an hour around 6:15 PM on 06/09/2019. TECHNIQUE: MR angiography of the head was performed without the use of intravenous contrast using 3-D [id number] technique. 3-D volumetric and/or maximum intensity projection (MIP) images were subse quently reconstructed for review. IV contrast: None. COMPARISON: None. FINDINGS: Localizer images: Unremarkable. Anterior circulation: Intracranial portions of the internal carotid arteries patent to the level of t he termini. Anterior cerebral arteries patent. Middle cerebral arteries patent. Anterior communicatin g artery patent. Posterior circulation: Right dominant vertebral artery. Intradural portions of the vertebral arteries patent. Posterior inferior cerebellar arteries patent. Basilar artery patent. Anterior inferior cere bellar arteries poorly visualized. Superior cerebellar arteries patent. Posterior cerebral arteries p atent. Posterior communicating arteries hypoplastic or aplastic. IMPRESSION: 1. No significant stenosis, aneurysm, or focal vessel occlusion. Electronically signed by: Lauri Hines M.D. 06/10/2019 7:23 AM
[2019-06-10] MEDS ORDERED: ASPIRIN 81 MG ECTAB PO SCH (09:00)
[2019-06-10] MEDS: INSULIN ASPART 100 UNITS/ML 3 ML PEN SC SCH ×4 (09:05→22:14)
[2019-06-10] MEDS ORDERED: PERFLUTREN LIPID MICROSPHERE (DEFINITY) IV ONE (09:06)
[2019-06-10] MEDS: HEPARIN SOD 5,000 UNIT/0.5 ML VIAL SQ SCH ×2 (09:07→22:13)
[2019-06-10] MEDS: METOPROLOL SUCC 50MG EXT REL TAB PO SCH (09:07)
[2019-06-10 09:19] LABS: Estimated Average Glucose 143 mg/dl; Hemoglobin A1C 6.6 % (4.5-5.6)
--- NOTE | 2019-06-10 10:15 | Neurology Consultation ---
Date of Consultation June 10, 2019 Assessment & Plan (1) Transient ischemic attack (TIA): TIA potentially localizing to the right cerebral hemisphere, likely subcortical location, characterized by paresthesias along the left side of the mouth, left-sided weakness, and dysarthria. Symptoms resolved within about 45 minutes and occurred in the context of hypertensive urgency. No hemorrhage or acute process on imaging. Patient does have a moderate stenosis of the right internal carotid artery as well as some possible restenosis at the proximal left internal carotid artery as depicted on ultrasound. I would like him to have an MRA of the neck with contrast to further evaluate the status of his cervical circulation. I would also recommend starting a statin given evidence of atherosclerotic disease on carotid ultrasound and MRA of the head. Would recommend switching his antiplatelet therapy from daily low-dose aspirin to clopidogrel 75 mg/day. He will need ongoing management of hypertension with gradual lowering of blood pressure during this hospitalization. He will need ongoing management of his diabetes mellitus as well as an outpatient. History of Present Illness Reason for Consultation: TIA Requesting Physician: Campbell Tamayo MD Attending Physician: Pawel Rios MD History of Present Illness The patient is an 84-year-old male with a chief complaint of numbness and tingling that occurred suddenly along the left side of his mouth and associated slurred speech that began acutely yesterday about 45 minutes prior to arrival. He may have had some associated left-sided weakness at that time as well as noted by his son. No associated vision loss. Symptoms resolved by the time he was evaluated in the emergency department. He was notably hypertensive with initial blood pressures of 201/102, 236/124. History is notable for a left carotid endarterectomy that was done in [facility] several years ago. He continues to follow periodically with his vascular surgeon and is aware that he may have a modest narrowing in the right internal carotid artery as well. Past medical history also notable for diabetes mellitus and hypertension. He reports that he had been on a statin in the past. He denies a history of i ntolerance to statins. He also takes a daily low-dose aspirin. As his symptoms were improved to resolved by the time he was assessed in the emergency department, a tele-stroke consultation was not obtained. This morning, the patient reports that he feels well. No recurrence of numbness, weakness, or speech change. No headache. No vision loss. History also notable for lumbar surgery done several years ago in [place], probably a lumbar laminectomy to address symptoms radiating down into the left leg at that time. He has a residual left foot drop. He is also undergone a recent right partial knee replacement with Dr. Pride. Additional details as below. Allergies Allergy/AdvReac Type Severity Reaction Status Date / Time indomethacin Allergy Unknown LOWERED Verified 06/09/19 20:10 WHITE CELL COUNT metformin AdvReac Unknown pt unsure Verified 06/09/19 20:10 why Home Medications Home Medications Medication Instructions Recorded Confirmed Type Januvia 100 mg PO QAM 06/12/18 06/09/19 History Probiotic 3,000 mmu cells PO QAM 06/12/18 06/09/19 History albuterol sulfate 2 puff INHALATION Q6H PRN 06/12/18 06/09/19 History allopurinol 300 mg PO QAM 06/12/18 06/09/19 History aspirin 81 mg PO DAILY 06/12/18 06/09/19 History celecoxib [Celebrex] 200 mg PO BID PRN 06/12/18 06/09/19 History glipizide 10 mg PO BID 06/12/18 06/09/19 History metoprolol succinate 100 mg PO QAM 06/12/18 06/09/19 History olmesartan 40 mg PO QAM 06/12/18 06/09/19 History tamsulosin 0.4 mg PO QAM 06/12/18 06/09/19 History fluticasone furoate-vilanterol 1 ea INHALATION DAILY 06/09/19 06/09/19 History [Breo Ellipta] repaglinide [Prandin] 2 mg PO BID 06/09/19 06/09/19 History repaglinide [Prandin] 4 mg PO QPM 06/09/19 06/09/19 History Patient History Medical History BPH (benign prostatic hyperplasia) CAD (coronary artery disease) s/p stent to RCA x 1 2009 Chronic obstructive pulmonary disease very rare albuterol use. Daily Advair, stable. Diabetes mellitus, type 2 Hyperlipidemia Hypertension Neuropathy LEFT LOWER LEG/FOOT. PT STATES HE HAS DROP FOOT. Osteoarthritis Sleep apnea PT HAS CPAP DEVICE, DOES NOT CURRENTLY WEAR. Transient ischemic attack (TIA) JANUARY 2018. NO RESIDUAL. Surgical History Fusion of spine LUMBAR History of cardiac cath 2010. STENT X1. [facility] History of carotid endarterectomy LEFT. 2018 in [place] History of cholecystectomy History of colonoscopy History of tonsillectomy Family History (Updated 06/09/19 @ 19:25 by Luann Joshi) Other Family history non-contributory Social History Preferred Language: Turkmen Communication Ability: Effective Pourer Off Required: No Beliefs That Will Affect Care: None Current Living Situation: Spouse Other Information That Helps Us Care for You: No Feels Safe at Home: Yes Safety Concerns: Feels Safe At This Time Smoking Status: Never smoker Tobacco Type: cigarettes ; Cigarettes Per Day: H/O up to 2ppd ; Second Hand Exposure: No ; Hx Alcohol Use: Yes Alcohol type: beer Hx Substance Use: No Review of Systems Constitutional: no fever, no chills and no fatigue Eyes: no blind spots and no diplopia Ear, Nose, Mouth, Throat: no hearing loss Respiratory: no cough and no dyspnea Cardiovascular: no chest pain and no palpitations Gastrointestinal: no nausea and no vomiting Genitourinary: no urinary incontinence Musculoskeletal: no back pain, no neck pain and no myalgia Integumentary: no rash and no lesions Neurologic: as per Subjective / HPI, + localized weakness, + loss of sensation and + abnormal speech; no tremor(s), no seizure-like activity, no confusion and no memory loss Psychiatric: no depression and no anxiety Hematologic / Lymphatic: no easy bleeding and no easy bruising Physical Exam Physical Exam: The patient is a well-developed, well-nourished elderly male. He is alert and fully oriented. Recent and remote memory intact. Attention and concentration normal. Patient exhibits a normal spontaneous speech pattern. He is able to name objects and repeat phrases. Patient exhibits an age- appropriate fund of knowledge and normal comprehension of vocabulary. Visual mcbride full to confrontation. Visual acuity normal. Pupils equal round reactive to light and accommodation. Eye movements normal. There is no ptosis, nystagmus, or ophthalmoplegia. Facial sensation intact. There is no facial droop or weakness. Hearing intact. Palate elevates to midline. Shoulder shrug intact. Tongue protrudes to midline. There is diminished sensation to vibration and light touch affecting the distal left lower limb. Sensation is otherwise intact for the arms and right leg. There is no dysdiadochokinesia or dysmetria [id number] or [id number] bilaterally. Ophthalmoscopic examination reveals normal-appearing optic disks and posterior segments. No papilledema or hemorrhages. Carotid pulses normal bilaterally, no bruits to auscultation. Gait and station normal. Patient exhibits normal muscle strength and tone for all 4 limbs although there is a moderate left foot drop (chronic). There is no atrophy. No abnormal movements observed. Results & Data Vital Signs (Past 12 Hours) Vital Signs Temp Pulse Pulse Resp BP BP Pulse Ox 06/10/19 08:03 36.8 C 104 H 20 177/86 H 06/10/19 07:19 82 06/10/19 05:00 36.5 C 85 19 181/90 H 92 06/10/19 01:00 88 06/09/19 23:12 36.5 C 91 H 20 175/91 H 93 Laboratory Results WBC 4.60, hemoglobin 12.5, hematocrit 38.4, platelet count 146, sedimentation rate 23, sodium 138, potassium 4.0, BUN 19, creatinine 1.50, glucose 161, hemoglobin A1c 6.6, troponin less than 0.015, triglycerides 234, cholesterol 149, LDL 73, VLDL 47, HDL [address] of the head is negative for hemorrhage or acute process. There is patchy white matter hypodensities consistent with chronic microvascular ischemic disease. I reviewed the images as well as the radiologist interpretation of this test. A brain MRI is negative for acute or subacute infarct. There is a chronic right thalamic lacunar infarct as well as chronic small vessel ischemic disease. The right vertebral artery is dominant. I reviewed the images as well as the radiologist interpretation of this test. MRA of the head is negative for significant stenosis, aneurysm, or focal vessel occlusion. The right vertebral artery is dominant. The basilar artery is patent. I reviewed the images as well as the radiologist interpretation of this test. A carotid ultrasound reveals findings suggestive of a 50 to 69% stenosis of the proximal right internal carotid artery as well as extensive calcified atherosclerotic plaque. There is also borderline elevated velocity within the proximal left internal carotid artery. Restenosis cannot be excluded. Electrocardiogram reveals a sinus rhythm with blocked premature atrial complexes, 90 bpm
--- NOTE | 2019-06-10 12:32 | Hospitalist Progress Note ---
Date of Service June 10, 2019 Assessment & Plan (1) Transient ischemic attack (TIA): Initial TIA was without residual January 2018. Strokelike symptoms this time primarily consists of slurred speech, and resolved by the time he was in the ED. Possible hypertensive urgency, though not entirely clear. BP was as high as 200/100 in the ED. - Brain MRI on 06/09 shows old right thalamic lacunar infarct, but nothing acute. - Brain MRA on 06/09 shows no significant stenosis. - Switched ASA -> Plavix and added atorvastatin per neurology recs. - Echo on 06/09 shows borderline LVH, EF 50-55%. No obvious PFO, though imaging was poor. - Neck MRA pending (2) Difficulty with speech: See above (3) Diabetes mellitus, type 2: A1c was 6.6% this admission. - Hold repaglinide, Januvia and glipizide. - Sliding scale insulin (4) Hypertension: Blood pressure initially elevated into the systolic 180s, that did improve with labetalol IV given by ED. - Now BP still at 180/90. - Continue beta-marcos - Will add low-dose ACEi (5) Hyperlipidemia: LDL was 73, HDL 30, and trig 234. - Started atorvastatin per neurology recs (6) CAD (coronary artery disease): No chest pain this admission. Troponins were negative. - Switch ASA to Plavix as above - Continue beta-marcos (7) Chronic obstructive pulmonary disease: No present shortness of breath. - Switched Breo to Symbicort per formulary - Albuterol PRN (8) BPH (benign prostatic hyperplasia): Continue tamsulosin (9) DVT prophylaxis: Heparin BID Subjective Back to baseline at present. No headache. Reports no fevers/chills, chest pain, shortness of breath, abdominal pain, nausea, or vomiting. Physical Exam Constitutional: WD/WN, vitals as above Eyes: EOM intact bilaterally; no conjunctival abnormality ENMT: external ear and nose normal, oropharynx normal Neck: trachea midline, no thyromegaly normal visual inspection Respiratory: normal respiratory effort, lungs clear to auscultation no respiratory distress Cardiovascular: RRR, no murmur, no edema Gastrointestinal (Abdomen): normal bowel sounds, soft, nontender, no hepatosplenomegaly Inspection/Auscultation: abdomen normal to inspection; abdomen not distended Musculoskeletal: no cyanosis or clubbing, extremities motor strength 5/5 Skin: no rashes, warm and dry Neurologic: moves all extremities and awake Psychiatric: Orientation: alert, oriented to person and cooperative Results & Data Vital Signs (Past 12 Hours) Vital Signs Temp Pulse Pulse Resp BP BP Pulse Ox 06/10/19 11:58 36.7 C 110 H 18 179/89 H 96 06/10/19 08:03 36.8 C 104 H 20 177/86 H 06/10/19 07:19 82 06/10/19 05:00 36.5 C 85 19 181/90 H 92 06/10/19 01:00 88 PG Care Time/CCT Total # of Minutes Spent Total Time Spent with Patient: Total time spent is greater than 50% in coordination of care (as documented) at patient's floor/unit and/or counseling patient:
[2019-06-10] MEDS: CLOPIDOGREL BISULFATE 75 MG TAB PO SCH (12:34)
[2019-06-10] MEDS: ATORVASTATIN 40 MG TAB PO SCH (12:34)
[2019-06-10] MEDS: LISINOPRIL 5 MG TAB PO SCH ×2 (12:59→13:13)
[2019-06-10] MEDS ORDERED: GADOBUTROL 65ML VIAL IV PRN (19:34)
[2019-06-10] MEDS: BUDESONIDE/FORMOTEROL FUMARATE 80/4.5 60 PUFFS/INHALER INH SCH (22:15)
--- NOTE | 2019-06-10 22:57 | Magnetic Resonance Report ---
NECK CTA HISTORY: TIA, right carotid stenosis, h/o left CEA TECHNIQUE: Multiaxial CT images of the neck were performed following the intravenous administration o f contrast to evaluate the major cervical vessels. Maximum intensity projection images were also obta ined. All measurements were calculated based on NASCET criteria. A dose lowering technique was utili zed adhering to the principles of ALARA. COMPARISON STUDY: Carotid Doppler 06/10/2019. FINDINGS: Significant motion artifact resulting in suboptimal evaluation of the proximal great vessel s and right carotid bifurcation. Focal stenosis within the right proximal internal carotid artery is identified. However, the exact percentage is difficult to evaluate due to the motion artifact but cou ld be severe. The aortic arch appears to be normal in course and caliber. Hypoplastic left vertebral artery. The vertebral arteries appear widely patent. No significant stenosis, occlusion, or dissectio n within the left common or left internal carotid arteries. IMPRESSION: 1. Focal stenosis within the right proximal internal carotid artery is identified. However, the exact percentage is difficult to evaluate due to the motion artifact but could be severe. Therefore, dedic ated neck CTA is recommended for further evaluation. 2. No significant stenosis or occlusion within the left carotid arteries or vertebral arteries. Electronically signed by: Gregor De Jesus M.D. 06/10/2019 10:55 PM
[2019-06-11 06:11] LABS: Basophils # (auto) 0.05 K/uL (0-0.2); Basophils % (auto) 0.9 %; Eosinophils % (auto) 9.1 %; Hematocrit (blood only) 39.7 % (42-52); Hemoglobin 13.1 g/dL (14.0-18.0); Immature Granulocytes # (auto) 0.01 K/uL (0.00-0.02); Immature Granulocytes % (auto) 0.2 %; Lymphocytes # (auto) 1.74 K/uL (1.2-3.4); Lymphocytes % (auto) 31.6 %; Mean Corpuscular Hemoglobin 29.9 pg (25-34); Mean Corpuscular Volume 90.6 fL (80-100); Mean Platelet Volume 9.8 fL (7.4-10.4); Monocytes # (auto) 0.68 K/uL (0.11-0.59); Monocytes % (auto) 12.3 %; Neutrophils # (auto) 2.53 K/uL (1.4-6.5); Neutrophils % (auto) 45.9 %; Platelet Count 156 K/uL (130-400); RDW Coefficient of Variation 15.4 % (11.5-14.5); RDW Standard Deviation 51.1 fL (36.4-46.3); Red Blood Count 4.38 M/uL (4.7-6.1); White Blood Count 5.51 K/uL (4.8-10.8)
[2019-06-11 06:41] LABS: BUN Creatinine Ratio 12.2 (10-20); Calcium 9.6 mg/dl (8.5-10.1); Creatinine Clr Calc Pharmacy 44.3 ml/min; Est GFR (African American) 46.9; Est GFR (Non-African American) 40.5; Potassium 4.4 mmol/L (3.5-5.1)
[2019-06-11] MEDS ORDERED: SODIUM CHLORIDE 0.9% 1000ML 250 ML IV ONE (07:33)
[2019-06-11] MEDS: CLOPIDOGREL BISULFATE 75 MG TAB PO SCH (08:02)
[2019-06-11] MEDS: LISINOPRIL 5 MG TAB PO SCH (08:02)
[2019-06-11] MEDS: METOPROLOL SUCC 50MG EXT REL TAB PO SCH (08:02)
[2019-06-11] MEDS: ATORVASTATIN 40 MG TAB PO SCH (08:03)
[2019-06-11] MEDS: HEPARIN SOD 5,000 UNIT/0.5 ML VIAL SQ SCH (08:03)
[2019-06-11] MEDS: BUDESONIDE/FORMOTEROL FUMARATE 80/4.5 60 PUFFS/INHALER INH SCH (08:04)
[2019-06-11] MEDS: INSULIN ASPART 100 UNITS/ML 3 ML PEN SC SCH ×2 (08:06→13:12)
--- NOTE | 2019-06-11 08:38 | Neurology Progress Note ---
Date of Service June 11, 2019 Assessment & Plan (1) Carotid stenosis: Suspected significant stenosis of the proximal right internal carotid artery. The degree of stenosis could not be accurately estimated on MR angiography, however. A CT angiogram has been recommended for further asses sment which is reasonable and appropriate. Discussed need for CT angiogram for further assessment directly with patient. If this study reveals a significant stenosis would consult vascular surgery. Patient should continue with atorvastatin and clopidogrel. Continue with medical management of hypertension. Avoid aggressive lowering of blood pressure during hospitalization due to potential risk of hypoperfusion injury. Systolic blood pressure goal at this time 140 to 160 mmHg. Subjective Follow-up for TIA The patient is an 84-year-old male who presented with left-sided paresthesias, weakness, and slurred speech. Symptoms resolved within 45 minutes. No evidence of acute or subacute infarct on MRI. However, patient does have evidence of a possible severe stenosis at the proximal right internal carotid artery depicted on MR angiography. He has not had a recurrence of strokelike symptoms since his admission to the hospital. He denies any particular symptoms this morning. No headache, speech disturbance, weakness or numbness. No vision loss. His blood pressure remains elevated but is modestly improved compared with his prese ntation to the hospital. He had previously been taking daily low-dose aspirin as an outpatient although this medication was discontinued in favor of clopidogrel 75 mg/day. Atorvastatin was also started as recommended. An echocardiogram completed yesterday revealed borderline concentric left ventricular hypertrophy and mild dilatation of both the left and right atria. No PFO with bubble study. Review of Systems Eyes: no blind spots and no diplopia Neurologic: as per Subjective / HPI; no localized weakness, no loss of sensation, no paresthesia, no dizziness, no headache(s), no abnormal speech, no confusion and no memory loss Physical Exam Physical Exam: The patient is alert and fully oriented. Recent and remote memory intact. Attention and concentration normal. Patient exhibits a normal spontaneous speech pattern. No dysarthria. Patient has an age-appropriate fund of knowledge and normal comprehension of vocabulary. Visual mcbride full to confrontation. Visual acuity normal. Pupils equal round react to light and accommodation. Eye movements normal. There is no facial droop or weakness. Hearing intact. Palate elevates to midline. Shoulder shrug intact. Tongue protrudes to midline. There is no pronator drift with outstretched arms. There is no dysmetria with [id number]. There are no abnormal movements. Carotid pulses normal, no bruits to auscultation. Results & Data Vital Signs (Past 12 Hours) Vital Signs Temp Pulse Pulse Resp BP Pulse Ox 06/11/19 07:25 36.4 C L 73 17 171/98 H 92 06/11/19 03:30 36.4 C L 75 18 157/78 H 92 06/11/19 00:00 77 06/10/19 23:37 36.6 C 77 19 164/77 H 94 Laboratory Results Sodium 137, potassium 4.4, BUN 19, creatinine 1.56, estimated glomerular filtration rate 40.5, glucose 158 Diagnostic Findings MRA of the neck reveals a focal stenosis within the right proximal internal carotid artery. Degree of stenosis could be severe although interpretation limited by motion artifact. I reviewed the images as well as the radiologist interpretation of this test. A transthoracic echocardiogram revealed borderline concentric left ventricular hypertrophy and mild dilatation of the left and right atria. Ejection fraction 50 to 55%. No PFO documented with contrast.
[2019-06-11] MEDS ORDERED: OPTIRAY 320 125ml IV PRN (11:49)
--- NOTE | 2019-06-11 12:39 | CT Scan Report ---
CT ANGIOGRAPHY OF THE NECK WITH CONTRAST CLINICAL HISTORY: Concern for ICA stenosis COMPARISON STUDY: MRA of the neck June 10, 2019. Technique: CT angiography of the carotid and vertebral arteries was obtained using OptiraBalaBit 320 IV and 3D reconstruction on an independent workstation. NASCET criteria was utilized. Automated exposure c ontrol was utilized for the study. A dose lowering technique was utilized adhering to the principles of ALARA. CT DOSE: 637.90 mGy.cm Findings: Evaluation of the origin of the bilateral vertebral arteries is suboptimal. There is suspec tasha moderate stenosis at the origin of the bilateral vertebral arteries. The right vertebral artery i s dominant. There is no dissection within the major vessels of the neck. There is moderate calcified and noncalcified plaque within the proximal right internal carotid artery which results in multifocal stenosis of approximately 70% at the vessel origin and 1.3 cm distal to vessel origin. There is no s tenosis within the left internal carotid artery. Note is made of mild to moderate stenosis of the pro ximal left common carotid artery. There is extensive plaque within the aortic arch. A large bleb with in the left upper lobe is partially imaged. This is unchanged. There is no cervical lymphadenopathy. There is no cervical spine fracture. There is extensive plaque within bilateral cavernous carotids. V isualized portions of the intracranial contents are unremarkable. IMPRESSION: 1. Multifocal stenoses within the proximal right internal carotid artery, measuring approximately 70% , as described above. 2. Moderate stenosis at the origins of the bilateral vertebral arteries and mild to moderate stenosis within the proximal left common carotid artery. No stenosis within the left internal carotid artery. Electronically signed by: Chano Tyler M.D. 06/11/2019 12:38 PM
[2019-06-11] MEDS ORDERED: STROKE PATIENT DISCHARGE STA (13:31)
--- NOTE | 2019-06-11 14:20 | Discharge Summary ---
Date of Service June 11, 2019 Admission HPI Per Admitting Provider The patient is a 84-year-old male with a past medical history including CAD, diabetes mellitus, hypertension, BPH and TIA, who presents to the emergency department with improving slurred speech that began about 45 minutes prior to arrival. By the time of arrival in ED, the patient's symptoms have completely resolved. His family reports that over the past few days, he may have had some initial brief symptoms, that they are only aware of in retrospect at this time. The patient is unaware of his symptoms this time, as he had been during his previous TIA. He has not had a recent travels or sick exposures. Principal Diagnosis TIA Left carotid artery stenosis of 70% Discharge Exam Constitutional WD/WN, vitals as above Eyes EOM intact bilaterally; no conjunctival abnormality ENMT external ear and nose normal, oropharynx normal Neck trachea midline, no thyromegaly normal visual inspection Respiratory normal respiratory effort, lungs clear to auscultation no respiratory distress Cardiovascular RRR, no murmur, no edema Gastrointestinal (Abdomen) normal bowel sounds, soft, nontender, no hepatosplenomegaly Inspection/Auscultation: abdomen normal to inspection; abdomen not distended Musculoskeletal no cyanosis or clubbing, extremities motor strength 5/5 Skin no rashes, warm and dry Neurologic moves all extremities and awake Psychiatric Orientation: alert, oriented to person and cooperative Discharge Data Allergies Allergy/AdvReac Type Severity Reaction Status Date / Time indomethacin Allergy Unknown LOWERED Verified 06/09/19 20:10 WHITE CELL COUNT metformin AdvReac Unknown pt unsure Verified 06/09/19 20:10 why Consultations 06/09/19 19:50 ED Decision to Admit Stat 06/09/19 21:34 Consult Case Management - Discharge Planning Routine Consult Case Management - Discharge Planning Routine Consult Neurology Routine 06/11/19 13:31 Burn CD for patient Routine Ordered Studies 06/09/19 19:18 CT head/brain wo con Stat 06/09/19 20:08 MR angio head wo con Urgent MR brain wo con Urgent US carotid doppler BI Urgent 06/10/19 10:15 MR angio neck wo/w con Routine 06/11/19 07:33 CT angio neck with con Urgent Hospital Course (1) Transient ischemic attack (TIA): Initial TIA was without residual effect in January 2018. Stroke-like symptoms this time primarily consists of slurred speech, and resolved by the time he was in the ED. Possible hypertensive urgency, though not entirely clear. BP was as high as 200/100 in the ED. - Brain MRI on 06/09 shows old right thalamic lacunar infarct, but nothing acute. - Brain MRA on 06/09 shows no significant stenosis. - Switched ASA -> Plavix and added atorvastatin per neurology recs. - Echo on 06/09 shows borderline LVH, EF 50-55%. No obvious PFO, though imaging was poor. - Neck CTA showed a 70% left ICA stenosis. Would like to follow up with his prior vascular surgeon who did his right side. Recommended to call in the next few days as guidelines indicate surgery is recommended within the next 2 weeks. (2) Difficulty with speech: See above (3) Diabetes mellitus, type 2: A1c was 6.6% this admission. - Held repaglinide, Januvia and glipizide. - On discharge, restarted home meds, but dropped repaglinide to 1mg BID as it interacts with Plavix to increase serum levels. Prasugrel is contraindicated, and ticagrelor has increased cost and BID dosing making it a poor substitute. (4) Hypertension: Blood pressure initially elevated into the systolic 180s, that did improve with labetalol IV given by ED. - Now BP still at 165/90. - Continue beta-marcos - Added low-dose ACEi (lisinopril 10mg) (5) Hyperlipidemia: LDL was 73, HDL 30, and trig 234. - Started atorvastatin per neurology recs (6) CAD (coronary artery disease): No chest pain this admission. Troponins were negative. - Switch ASA to Plavix as above - Continue beta-marcos & ACEi (7) Chronic obstructive pulmonary disease: No present shortness of breath. - Continue Breo - Albuterol PRN (8) BPH (benign prostatic hyperplasia): Continue tamsulosin (9) DVT prophylaxis: Heparin BID Total Time Total Time Spent Total Time Spent (In Minutes): 45 Discharge Plan Discharge Items Patient Disposition: Home - Self-Care Reason For Visit: TIA Discharge Diagnosis: TIA Activity: Resume your previous activity Non-emergency contact: Primary Care Provider Call non-emergency contact if: your symptoms worsen Follow-up/Referrals: Chino Dutta MD [Physician] - 08/26/19 8:45 am (Please, follow up at [facility] Neurology Office with Dr. Chino Dutta on August 26 at 9:00 am (arrive 8:45 am). *The office is located at [address] in [place]. If you need to change this appointment, call the office at [phone].) Varghese Beach MD [Physician] - (Please, follow up with Dr. Varghese Beach (vascular surgeon). *A nurse from his office will contact you with the appointment details. The office is located at [address] [place] [address] in [place], next [facility] [facility]. If you have any questions, call the office at [phone].) Alen Vigil D.O. [Primary Care Provider] - 06/18/19 10:30 am (Please, follow up with Dr. Vigil on FridayJune 18 at 10:30 am. *If you need to change this appointment, call the office at [phone].) Diet: Carb Consistent or DM2 and Heart Healthy Addtl Attending Provider Instructions: Mr. Lea, You were admitted with symptoms consistent with a TIA ("mini-stroke"). We adjusted your medications to try to prevent this from occuring again. You had a variety of imaging studies that showed you have a 70% blockage of your left carotid artery. You preferred to talk with your vascular surgeon who did your right artery which is totally fine. Please call his office today or Friday for an appointment. Guidelines indicate you should have the surgery with in two weeks of this event, so it is important to follow up promptly with him. We made 4 changes to your medications: 1) We stopped your baby aspirin (81mg) and switched it to a medication called Plavix (clopidogrel) 75mg. Plavix is the "big brother" to aspirin and is a bit stronger. You do not need to take both. 2) We added atorvastatin (Lipitor) which will lower your cholesterol and also help stabilize any plaques (blockages) in your arteries. This helps prevent stroke and heart attacks. 3) We added lisinopril. This is a blood pressure medication that can also help protect the kidneys in diabetes. 4) Last, we lowered your Prandin medication. It can interact with the Plavix, so lowering the dose keeps your blood sugar from going too low. Please come back to the hospital or call - if you have more symptoms like the ones that brought you in to our hospital. With strokes, time really matters, so do not wait at home to see if it passes again as this can potentially cause the damage to be permanent! Pending Studies at Discharge: No Stand-Alone Forms: My [facility] Distract[employer], Smoking Cessation Medications and DC Order Prescriptions: New atorvastatin 40 mg Tablet 40 mg PO QAM Qty: 30 RF: 1 clopidogrel 75 mg Tablet 75 mg PO QAM Qty: 30 RF: 1 lisinopril 10 mg tablet 10 mg PO DAILY Qty: 30 RF: 1 repaglinide 1 mg tablet 1 mg PO BID Qty: 60 RF: 0 Continued celecoxib [Celebrex] 200 mg Capsule 200 mg PO BID PRN (Reason: Pain) RF: 0 glipizide 10 mg Tablet 10 mg PO BID RF: 0 metoprolol succinate 100 mg Tablet Extended Release 24 Hr 100 mg PO QAM RF: 0 tamsulosin 0.4 mg Capsule 0.4 mg PO QAM RF: 0 allopurinol 300 mg Tablet 300 mg PO QAM RF: 0 albuterol sulfate 90 mcg/actuation Hfa Aerosol Inhaler 2 puff INHALATION Q6H PRN (Reason: Wheezing) RF: 0 olmesartan 40 mg Tablet 40 mg PO QAM RF: 0 Januvia 100 mg Tablet 100 mg PO QAM RF: 0 Probiotic 3 billion cell Capsule 3,000 mmu cells PO QAM RF: 0 repaglinide [Prandin] 2 mg tablet 2 mg PO BID RF: 0 Breo Ellipta 200-25 mcg/dose blister with device 1 ea INHALATION DAILY RF: 0 Discontinued aspirin 81 mg Tablet,Delayed Release (Dr/Ec) 81 mg PO DAILY RF: 0 repaglinide [Prandin] 2 mg tablet 4 mg PO QPM RF: 0 Discharge Orders: Discharge Order (Routine); Ordered 06/11/19 Ordered By: Pawel Marroquin/Other Patient Handouts: Stroke Sx, TIA, Stroke Carotid Artery, Endarterectomy Carotid Admission Data Admit Date/Time: 06/09/19 20:42 Attending Provider: Pawel Rios Admit Provider: Campbell Tamayo Primary Care Provider: Alen Vigil Other Providers: Chino Dutta ; Pawel Rios
--- NOTE | 2019-06-11 15:31 | Pharmacy Report ---
Pharmacist Stroke Counseling - Date of Service June 11, 2019 - Scope: Pharmacy has been consulted to provide medication discharge counseling for this patient admitted with [transient ischemic attack] as per the Pharmacist Discharge Counseling for Stroke Patients Protocol. - Medications on Discharge: Home Medications Medication Instructions Recorded Confirmed Januvia 100 mg PO QAM 06/12/18 06/09/19 Probiotic 3,000 mmu cells PO QAM 06/12/18 06/09/19 albuterol sulfate 2 puff INHALATION Q6H PRN 06/12/18 06/09/19 allopurinol 300 mg PO QAM 06/12/18 06/09/19 celecoxib [Celebrex] 200 mg PO BID PRN 06/12/18 06/09/19 glipizide 10 mg PO BID 06/12/18 06/09/19 metoprolol succinate 100 mg PO QAM 06/12/18 06/09/19 olmesartan 40 mg PO QAM 06/12/18 06/09/19 tamsulosin 0.4 mg PO QAM 06/12/18 06/09/19 Breo Ellipta 1 ea INHALATION DAILY 06/09/19 06/09/19 New Rx's Medication Instructions Recorded atorvastatin 40 mg PO QAM #30 tab 06/11/19 clopidogrel 75 mg PO QAM #30 tab 06/11/19 repaglinide 0.5 mg PO BID #60 tab 06/11/19 - Action: The above medications, specifically ones for stroke treatment/prophylaxis, have been reviewed in detail with the patient and/or patient pharmacy services representative(s) prior to discharge. This includes indication, common adverse reactions, drug interactions, and medication administration. Medication counseling has been employed using the teach-back method to ensure understanding. - Outcome: The patient and/or patient pharmacy services representative(s) have demonstrated understanding of the medications. Please note, they are aware that the pharmacist will call them within 72 hours post-discharge to confirm that the appropriate medications are being taken and answer any further medication related questions the patient might have at that time. Contact information Individual to be contacted: pateint Relationship to patient (if applicable): n/a Phone number: [phone] Best time to call: anytime Additional comments: Patient accompanied with during interview. Clarified a couple medications on discharge with Dr. Rios prior to discharging patient. Had started lisinopril in hospital and ordered both lisinopril and home olmesartan on discharge. Clarified only wants olmesartan (d/c lisinopril). Also plavix and prandin combination comes up with major drug interaction with coadministration. Recommended dosage reduction of medication on discharge d/t interaction and close follow up outpatient. Did discuss new medications with patient including atorvastatin and plavix. Patient aware plavix is replacing aspirin and that it is a "stronger" medication and that he should monitor for any increase in bruising bleeding. Patient on several agents for diabetes. He states he has not been taking his januvia recently. He is not sure what happened with prescription or if he has some at home - he will check and follow up with his PCP to determine if continuation appropriate or if he needs refills. Encouraged patient to monitor BSGs more frequently since we are making adjustments to his diabetes medications. Recommended at least 2 times a day, once in morning and at night time. Patient agreed to do so and understands importance of blood sugar control. Familiar with s/s of hypoglcemia. Also recommended checking blood pressure routinely since he came in with high blood pressure. Patient agreed to do so and will share results with his PCP. Patient continues on home celebrex. Advised patient to limit use since he is starting plavix d/t increased in bleeding. Recommended tylenol as alternative. Patient agreed. He will also bring updated medication list with him to next doctor visit Thank you for allowing pharmacy to be involved in the care of this patient. Pl ease call [phone] or [phone] with any additional questions
--- NOTE | 2019-06-15 11:37 | Pharmacy Report ---
Pharmacist Post D/C Phone Note - Phone Note: Date of phone call: June 15, 2019. Individual with whom pharmacist spoke to: QUAN LAINEZ The following questions were reviewed during the phone call with responses listed below each: Can you tell me the medications that you are currently taking as well as when and how you take each medication? -See Table Below When have you missed any doses of your medications? - Patient wanted to confirm with his primary care doctor that he could take these new medications, so he did not start them immediately following discharge. He stated that he missed the first day's worth of pills. What side effects are you having from your medications, specifically, the new medications you were started on? - No new side effects observed by patient What questions do you have about your medications? - No questions What problems are you having obtaining your medications? - No problems When is your next appointment with your primary care doctor? - Friday (06/18/19), appointment with vascular surgeon on (06/17/19 Additional comments: - No concerns noted by patient. He has taken the medications as prescribed (minus the day following discharge - as described above) As per the Pharmacist Discharge Counseling for Stroke Patients Protocol, this phone call has been completed within 72 hours of discharge. Thank you for allowing us to be involved in the care of this patient. - Home Medications: Home Medications Medication Instructions Recorded Confirmed Januvia 100 mg PO QAM 06/12/18 06/09/19 Probiotic 3,000 mmu cells PO QAM 06/12/18 06/09/19 albuterol sulfate 2 puff INHALATION Q6H PRN 06/12/18 06/09/19 allopurinol 300 mg PO QAM 06/12/18 06/09/19 celecoxib [Celebrex] 200 mg PO BID PRN 06/12/18 06/09/19 glipizide 10 mg PO BID 06/12/18 06/09/19 metoprolol succinate 100 mg PO QAM 06/12/18 06/09/19 olmesartan 40 mg PO QAM 06/12/18 06/09/19 tamsulosin 0.4 mg PO QAM 06/12/18 06/09/19 Breo Ellipta 1 ea INHALATION DAILY 06/09/19 06/09/19 New Rx's Medication Instructions Recorded atorvastatin 40 mg PO QAM #30 tab 06/11/19 clopidogrel 75 mg PO QAM #30 tab 06/11/19 repaglinide 0.5 mg PO BID #60 tab 06/11/19
== END 2019-06-11 15:21 | disposition home or self-care (01) | DRG 69 ==
LOC: ED 19:02 → 2S 20:42 → SUATTDRO 20:42 → 2S 21:11

== ENCOUNTER 2023-06-25 09:22 | Inpatient (IN) ==
--- NOTE | 2023-06-25 10:30 | XRay Report ---
XR chest 1V not portable CLINICAL HISTORY: weakness COMPARISON STUDY: Chest radiograph June 15, 2018. FINDINGS: No pneumothorax or pleural effusion is present. A large bulla within the mid to left upper lung is again noted. Dystrophic calcifications within the left hemithorax are again noted. There is m ild cardiomegaly without evidence for pulmonary edema. There is no consolidation to suggest pneumonia . IMPRESSION: 1. No acute cardiopulmonary findings. 2. No change in appearance of the chest. Large left lung bulla and dystrophic calcifications within t he left hemithorax. ACT 112: Negative or not required by law. Electronically signed by: Chano Tyler M.D. 06/25/2023 10:29 AM
[2023-06-25 10:54] LABS: Basophils # (auto) 0.01 K/uL (0.00-0.20); Basophils % (auto) 0.1 %; Eosinophils # (auto) 0.13 K/uL (0.00-0.50); Eosinophils % (auto) 1.4 %; Hematocrit (blood only) 31.9 % (42.0-52.0); Immature Granulocytes # (auto) 0.21 K/uL (0.01-0.20); Immature Granulocytes % (auto) 2.3 %; Lymphocytes # (auto) 0.43 K/uL (1.20-3.40); Lymphocytes % (auto) 4.7 %; Mean Corpuscular Hemoglobin 27.9 pg (25.0-34.0); Mean Corpuscular Hgb Conc 31.3 g/dL (32.0-36.0); Mean Corpuscular Volume 89.1 fL (80.0-100.0); Mean Platelet Volume 10.2 fL (9.4-12.4); Monocytes # (auto) 0.63 K/uL (0.11-0.59); Monocytes % (auto) 6.8 %; Neutrophils # (auto) 7.82 K/uL (1.40-6.50); Neutrophils % (auto) 84.7 %; Nucleated RBC # (auto) 0.02 K/uL (0.00-0.12); Nucleated RBC % (auto) 0.2 %; Platelet Count 226 K/uL (130-400); RDW Coefficient of Variation 17.2 % (11.5-14.5); RDW Standard Deviation 54.4 fL (36.4-46.3); Red Blood Count 3.58 M/uL (4.70-6.10); White Blood Count 9.23 K/ul (4.8-10.8)
[2023-06-25 11:14] LABS: Alanine Aminotransferase 31 U/L (7-52); Albumin Globulin Ratio 1.2 (0.9-2); Albumin Level 3.4 gm/dl (3.4-5.0); Alkaline Phosphatase 93 U/L (34-104); Anion Gap 6 (3-11); BUN Creatinine Ratio 29.2 (10-20); Bilirubin,Total 0.7 mg/dl (0.2-1.0); Blood Urea Nitrogen 52 mg/dl (6-23); Calcium 8.6 mg/dl (8.6-10.3); Carbon Dioxide 25 mmol/L (21-32); Chloride 103 mmol/L (98-107); Est GFR (African American) 38.9 ml/min; Est GFR (Non-African American) 33.6 ml/min; Globulin 2.8 gm/dl (2.5-4.0); Glucose 222 mg/dl (70-99(Fasting)); Sodium 134 mmol/L (136-145); Total Protein 6.2 gm/dl (6.0-8.3)
[2023-06-25 11:20] LABS: Potassium 4.1 mmol/L (3.5-5.1)
[2023-06-25 11:25] LABS: Aspartate Aminotransferase 13 U/L (13-39)
--- NOTE | 2023-06-25 11:35 | Electrocardiogram Report ---
Test Reason : Blood Pressure : / mmHG Vent. Rate : 069 BPM Atrial Rate : 000 BPM P-R Int : 000 ms QRS Dur : 074 ms QT Int : 380 ms P-R-T Axes : 000 -06 040 degrees QTc Int : 407 ms Atrial fibrillation with premature ventricular or aberrantly conducted complexes Low voltage QRS Abnormal ECG When compared with ECG of 09-JUN-2019 19:22, Atrial fibrillation has replaced Sinus rhythm Confirmed by Dilip Barker ([id number]) on 06/25/2023 11:35:31 AM Referred By: Confirmed By:Mario Barker
--- NOTE | 2023-06-25 12:55 | Emergency Department Note ---
Impression & Plan Weakness, Anemia, UTI (urinary tract infection) ED Provider Note NAME: QUAN LAINEZ AGE: 88 SEX: M : 1935 ARRIVES VIA: Ambulance INFORMANT: Patient ED PROVIDER(S): James Leigh DO CHIEF COMPLAINT: weakness HPI: Patient is an 88-year-old male who presents to the ER for weakness in the bilateral legs. He notes that last night he lost his balance and fell onto his right hip. He denies hitting his head. No loss conscious. No headache or neck pain. He denies any headache or change in vision. No chest pain or shortness of breath. No nausea vomiting or diarrhea. Denies any belly pain. No dysuria urgency or frequency as he has a Gerber in. He notes he was too weak to get around earlier today when he went to urologist he was extremely weak and cannot get around. He was brought in by EMS. ADDITIONAL HISTORY OBTAINED: Per HPI Chronic Medical/Social Conditions Affecting Care: Per HPI PAST MEDICAL HISTORY:See Below PAST SURGICAL HISTORY:See Below FAMILY HISTORY:See Below SOCIAL HISTORY:See Below HOME MEDICATIONS:See Below ALLERGIES:See Below VITALS:See Below PHYSICAL EXAMINATION: GENERAL: Sitting up in bed, alert, well appearing, well nourished, no distress, non-toxic EYE EXAM: normal conjunctiva. PERRL and EOM's grossly intact. OROPHARYNX: no exudate, no erythema, lips, buccal mucosa, and tongue normal and mucous membranes are moist NECK: supple, no nuchal rigidity, no adenopathy, non-tender LUNGS: Clear to auscultation. Normal chest wall mechanics HEART: no murmurs, S1 normal and S2 normal ABDOMEN: abdomen soft, non-tender, normo-active bowel sounds, no masses, no rebound or guarding. BACK: Back is symmetrical on inspection and there is no deformity, no midline tenderness, no CVA tenderness. UPPER EXTREMITIES: upper extremities are grossly normal. LOWER EXTREMITIES: Flexion-extension bilateral hips knees ankles and EHL intact. NEURO EXAM: Normal sensorium, cranial nerves II-XII grossly intact, normal speech, no gross weakness of arms, no gross weakness of legs. MEDICAL DECISION MAKING: Patient is an 88-year-old female who presents to the ER for weakness. IV was established blood work was obtained. Labs show no significant leukocytosis. Mild anemia 10 fairly consistent with previous. BMP with a creatinine 1.7 which again is fairly consistent with previous. LFTs bilirubin was unremarkable. UA was eventually obtained after admission due to protracted wait in the waiting room. He did have a recent Gerber change today. Does suggest a UTI. Antibiotics were ordered IV Rocephin by the hospitalist. He was admitted for further work-up of his weakness. External Records Reviewed: Reviewed note from urology's office today as they placed a catheter following a voiding trial with Dr. Osuna Consults/Care Managements Discussions: Per [facility] Triage Nursing notes reviewed. Limited review of prior medical records performed Vital Signs: reviewed and remarkable for no significant abnormalities Differential diagnosis: Infection, dehydration, metabolic abnormality, hypo/hyperglycemia, electrolyte disturbance, anemia, hypoxia, cardiac sources, intracerebral event, toxicologic, neurologic, as well as other pathologies. ER treatment provided: See below Diagnostics interpreted by me include EKG and cardiac monitoring as listed below: -Cardiac Monitoring: An order was placed for continuous cardiac monitoring. The monitor shows a rate of 80 with sinus rhythm. -ECG: A-fib rate of 69 Normal axis PVCs QTc 407 -Laboratory studies:Interpreted by me as stated above in MDM and shown below. Imaging studies: Xrays: As interpreted by me: Portable AP upright 1 view of the chest shows portable AP upright 1 view of the chest shows patchy infiltrate bilateral bases Per radiology review the chest x-ray showed no acute changes from previous CTs show: none Procedures:none Critical Care: None Past Med/Surg History Medical History (Updated 06/25/23 @ 16:24 by James Leigh DO) Urinary retention CAD (coronary artery disease) s/p stent to RCA x 1 2009 Neuropathy LEFT LOWER LEG/FOOT. PT STATES HE HAS DROP FOOT. BPH (benign prostatic hyperplasia) Osteoarthritis Diabetes mellitus, type 2 Chronic obstructive pulmonary disease very rare albuterol use. Daily Advair, stable. Sleep apnea PT HAS CPAP DEVICE, DOES NOT CURRENTLY WEAR. Transient ischemic attack (TIA) JANUARY 2018. NO RESIDUAL. Hypertension Hyperlipidemia Surgical History History of carotid endarterectomy LEFT. 2018 in [place] History of tonsillectomy History of colonoscopy History of cholecystectomy Fusion of spine LUMBAR History of cardiac cath 2009. STENT X1. [facility] Family History (Updated 06/09/19 @ 19:25 by Luann Joshi) Other Family history non-contributory Social History Smoking Status: Unknown if ever smoked Cigarettes Per Day: H/O up to 2ppd; Second Hand Exposure: No; Do You Dip or Chew Tobacco: No; Hx Alcohol Use: Yes Alcohol type: beer Hx Substance Use: No Preferred Language: Khmer Communication Ability: Effective Logistics System Engineer Required: No Beliefs That Will Affect Care: None Current Living Situation: Spouse Feels Safe at Home: Yes Assistive Devices: Cane, CPAP, Denture - Upper, Denture - Lower, Glasses and Oxygen - at Night Allergies Allergies Allergy/AdvReac Type Severity Reaction Status Date / Time indomethacin Allergy Unknown LOWERED Verified 06/18/23 11:29 WHITE CELL COUNT metformin AdvReac Unknown pt unsure Verified 06/18/23 11:29 why Home Meds Home Medications Medication Instructions Recorded Confirmed albuterol sulfate 90 mcg/actuation 2 puff inhalation Q6H PRN Wheezing 06/12/18 06/18/23 aerosol inhaler allopurinol 300 mg tablet 300 mg PO QAM 06/12/18 06/18/23 celecoxib 200 mg capsule (Celebrex) 200 mg PO BID PRN Pain 06/12/18 06/18/23 glipizide 10 mg tablet 10 mg PO BID 06/12/18 06/18/23 lactobacillus combination no.4 3 3,000 mmu cells PO QAM 06/12/18 06/18/23 billion cell capsule (Probiotic) metoprolol succinate 100 mg 100 mg PO QAM 06/12/18 06/18/23 tablet,extended release 24 hr olmesartan 40 mg tablet 40 mg PO QAM 06/12/18 06/18/23 sitagliptin phosphate 100 mg 100 mg PO QAM 06/12/18 06/18/23 tablet (Januvia) tamsulosin 0.4 mg capsule 0.4 mg PO QAM 06/12/18 06/18/23 fluticasone furoate 200 1 ea inhalation DAILY 06/09/19 06/18/23 mcg-vilanterol 25 mcg/dose inhalation powder (Breo Ellipta) apixaban 2.5 mg tablet (Eliquis) 2.5 mg PO BID 06/25/23 06/25/23 Previous Rx's Medication Instructions Recorded atorvastatin 40 mg tablet 40 mg PO QAM #30 tabs 06/11/19 clopidogrel 75 mg tablet 75 mg PO QAM #30 tabs 06/11/19 repaglinide 0.5 mg tablet 0.5 mg PO BID #60 tabs 06/11/19 prednisone 20 mg tablet 20 mg PO BID #15 tabs 06/16/23 Results & Data (ED) Vital Signs Vital Signs - 24 hr 06/25/23 09:27 06/25/23 12:05 06/25/23 14:15 Temperature 36.6 C 36.4 C L 36.4 C L Temperature Source Temporal Artery Scan Oral Oral Pulse Rate 67 Pulse Rate [Left Finger] 100 H 84 Pulse Rhythm [Left Finger] Regular Pulse Strength [Left Finger] Normal Respiratory Rate 22 17 17 Respiratory Effort / Characteristics Non-Labored Spontaneous Spontaneous Spontaneous Respiratory Depth Normal Normal Normal Respiratory Pattern Regular Regular Blood Pressure 116/54 L Blood Pressure [Left Arm] 100/64 134/80 Blood Pressure Mean 74 Blood Pressure Mean [Left Arm] 76 98 Blood Pressure Position [Left Arm] Sitting Sitting Pulse Oximetry 100 96 96 Oxygen Delivery Method Room Air Room Air Room Air Sepsis Recent Fever Within 48 Hours No Sepsis New/Unexplained Change in Mental Status No Sepsis Action Taken by Nursing No Action Required Laboratory Data 06/25/23 10:05 06/25/23 10:05 Lab Results 06/25/23 06/25/23 Range/Units 10:05 14:13 WBC 9.23 (4.8-10.8) K/ul RBC 3.58 L (4.70-6.10) M/uL Hgb 10.0 L (14.0-18.0) g/dl Hct 31.9 L (42.0-52.0) % MCV 89.1 (80.0-100.0) fL MCH 27.9 (25.0-34.0) pg MCHC 31.3 L (32.0-36.0) g/dL RDW Std Deviation 54.4 H (36.4-46.3) fL RDW Coeff of Reji 17.2 H (11.5-14.5) % Plt Count 226 (130-400) K/uL MPV 10.2 (9.4-12.4) fL Immature Gran % (Auto) 2.3 % Neut % (Auto) 84.7 % Lymph % (Auto) 4.7 % [place] % (Auto) 6.8 % Eos % (Auto) 1.4 % Baso % (Auto) 0.1 % Neut # (Auto) 7.82 H (1.40-6.50) K/uL Lymph # (Auto) 0.43 L (1.20-3.40) K/uL [place] # (Auto) 0.63 H (0.11-0.59) K/uL Eos # (Auto) 0.13 (0.00-0.50) K/uL Baso # (Auto) 0.01 (0.00-0.20) K/uL Immature Gran # (Auto) 0.21 H (0.01-0.20) K/uL Absolute Nucleated RBC 0.02 (0.00-0.12) K/uL Nucleated RBC % (auto) 0.2 % ESR 9 (0-20) mm/hr Sodium 134 L (136-145) mmol/L Potassium 4.1 (3.5-5.1) mmol/L Chloride 103 (98-107) mmol/L Carbon Dioxide 25 (21-32) mmol/L Anion Gap 6 (3-11) BUN 52 H (6-23) mg/dl Creatinine 1.78 H (0.6-1.4) mg/dl Est Cr Clr Drug Dosing Not Reportable Est GFR ( Amer) 38.9 ml/min Est GFR (Non-Af Amer) 33.6 ml/min BUN/Creatinine Ratio 29.2 H (10-20) Glucose 222 H (70-99(Fasting)) mg/dl Calcium 8.6 (8.6-10.3) mg/dl Total Bilirubin 0.7 (0.2-1.0) mg/dl AST 13 (13-39) U/L ALT 31 (7-52) U/L Alkaline Phosphatase 93 (34-104) U/L C-Reactive Protein < 0.50 (0-0.5) mg/dl Total Protein 6.2 (6.0-8.3) gm/dl Albumin 3.4 (3.4-5.0) gm/dl Globulin 2.8 (2.5-4.0) gm/dl Albumin/Globulin Ratio 1.2 (0.9-2) Urine Color Yellow Urine Appearance Cloudy A (Clear) Urine pH 6.5 (4.5-7.5) Ur Specific [place] 1.018 (1.000-1.030) Urine Protein 2+ H (Negative) Urine Glucose (UA) Negative (Negative) Urine Ketones Negative (Negative) Urine Blood 3+ H (Negative) Urine Nitrite Negative (Negative) Urine Bilirubin Negative (Negative) Urine Urobilinogen Negative (Negative) Ur Leukocyte Esterase 3+ H (Negative) Urine WBC (Auto) >30 H (0-5) /hpf Urine RBC (Auto) >30 H (0-4) /hpf U Hyaline Cast (Auto) 0 (0-5) /lpf U Epithel Cells (Auto) 0-5 (0-5) /lpf Urine Bacteria (Auto) 4+ H (Negative) Administered Medications Discontinued Medications Sodium Chloride (Nss) 500 mls @ 999 mls/hr IV .Q31M ONE Stop: 06/25/23 14:42 Last Infusion: 06/25/23 14:54 Dose: Infused Documented By: Admin: 06/25/23 14: Dose: 999 mls/hr Documented By: CAW Imaging Data Radiologist's Impression: Chest X-Ray 06/25/23 09:35 XR chest 1V not portable CLINICAL HISTORY: weakness COMPARISON STUDY: Chest radiograph June 15, 2018. FINDINGS: No pneumothorax or pleural effusion is present. A large bulla within the mid to left upper lung is again noted. Dystrophic calcifications within the left hemithorax are again noted. There is mild cardiomegaly without evidence for pulmonary edema. There is no consolidation to suggest pneumonia. IMPRESSION: 1. No acute cardiopulmonary findings. 2. No change in appearance of the chest. Large left lung bulla and dystrophic calcifications within the left hemithorax. ACT 112: Negative or not required by law. Electronically signed by: Chano Tyler M.D. 06/25/2023 10:29 AM Hip/Pelvis X-Ray 06/25/23 12:52 XR hip RT 2V w pelvis HISTORY: 88 years-old Male fall acute pain of the right hip status post fall COMPARISON: 09/22/2014 TECHNIQUE: AP view the pelvis with 2 views of the right hip FINDINGS: No acute fracture or dislocation. Urinary bladder catheter. Arterial calcifications. Moderate left osteoarthritis. Unremarkable appearance of the right hip arthroplasty. IMPRESSION: No acute fracture or dislocation. ACT 112: Negative or not required by law. The above report was generated using voice recognition software. It may contain grammatical, syntax or spelling errors. Electronically signed by: Fercho Rodriguez M.D. 06/25/2023 3:01 PM Discharge Plan Visit Data Chief Complaint: Leg Weakness, Bilateral Stated Complaint: UNABLE TO AMB ED Provider: James Leigh Discharge Problem: Weakness, Anemia, UTI (urinary tract infection) Forms Stand Alone Forms: My [facility] PICS Auditing Prescriptions Prescriptions: No Action celecoxib [Celebrex] 200 mg Capsule 200 mg PO BID PRN (Reason: Pain) glipizide 10 mg Tablet 10 mg PO BID metoprolol succinate 100 mg Tablet Extended Release 24 Hr 100 mg PO QAM tamsulosin 0.4 mg Capsule 0.4 mg PO QAM allopurinol 300 mg Tablet 300 mg PO QAM albuterol sulfate 90 mcg/actuation Hfa Aerosol Inhaler 2 puff INHALATION Q6H PRN (Reason: Wheezing) olmesartan 40 mg Tablet 40 mg PO QAM Patient Comments: HAS NOT BEEN TAKING BUT IS GOING TO START AGAIN. Januvia 100 mg Tablet 100 mg PO QAM Probiotic 3 billion cell Capsule 3,000 mmu cells PO QAM Breo Ellipta 200-25 mcg/dose blister with device 1 ea INHALATION DAILY atorvastatin 40 mg Tablet 40 mg PO QAM Qty: 30 1RF clopidogrel 75 mg Tablet 75 mg PO QAM Qty: 30 1RF repaglinide 0.5 mg tablet 0.5 mg PO BID Qty: 60 0RF Rx Instructions: Administer within 30 minutes of a meal or snack Eliquis 2.5 mg tablet 2.5 mg PO BID prednisone 20 mg tablet 20 mg PO BID Qty: 15 0RF Rx Instructions: Please take 2 tablets by mouth daily on days 1 through 5 Please take 1 tablet by mouth daily on days 6 through 10 Referrals Referrals: Alen Vigil D.O. [Primary Care Provider] - Discharge Problem: Anemia Qualifiers: Anemia type: unspecified type Qualified Code(s): D64.9 - Anemia, unspecified UTI (urinary tract infection) Qualifiers: Urinary tract infection type: site unspecified Hematuria presence: with hematuria Qualified Code(s): N39.0 - Urinary tract infection, site not specified
[2023-06-25] MEDS ORDERED: SODIUM CHLORIDE 0.9% 500 ML IV ONE (14:12)
--- NOTE | 2023-06-25 14:26 | History & Physical Report ---
Date of Service June 25, 2023 Assessment & Plan (1) Generalized weakness: Plan: -Admit to med/surge -Currently stable -Patient was too weak this am to safely get into his Son's SUV to go to Urology appointment so EMS was called -Patient states that both legs feel more weak than his baseline, but denies new paresthesias, pain, or unilateral weakness -No focal neuro defects on exam -WBC is WNL, patient does appear to have a UTI with cloudy urine, 3+ leukocyte esterase, > 30WBC, 4+ bacteria, and epithelial cells WNL -Will also obtain full respiratory biofire as he is lymphopenic today -Likely has some degree of deconditioning as he was not fully participating in home PT/OT per the patient -Will treat UTI and continue to monitor for other sources of infection -PT/OT consults placed -Fall and aspiration precuations -Home Eliquis for DVT PPX -HH/DMII/Low sodium diet with 1800 mL fluid restriction -Will need to discuss home medications with his daughter when she can bring the med list in, will also need to review DC summary from [facility] when it is faxed over (2) UTI (urinary tract infection): Plan: -Patient has required fatima placement since his admission last month at [facility] for right hip fracture repair -Fatima was exchanged last night by daughter -Will have nursing staff replace fatima now -Will start Ceftriaxone, follow urine cultures -Would wait to try voiding trial until his UTI has been adequately treated (3) Urinary retention: Plan: -Will exchange fatima cath -Continue flomax -Voiding trial when UTI is treated (4) Fall: Plan: -Fell when he slipped in the bathroom last night -No acute trauma on chest xray or xray of the right hip/pelvis -Patient denies current pain -Fall precuations -PT/OT (5) Rash and nonspecific skin eruption: Plan: -Patient has a rash on the BL LE's which appears somewhat like a vasculitis -Was seen in the [facility] ED on 06/16 and started on a 10 day taper of prednisone -Patient and family think rash has been improving since he started the prednisone -Will complete the last 2 days of 20 mg PO prednisone daily -Will consult Dermatology for official evaluation as he has not been seen by Dermatology for this yet, appreciate their assistance (6) Afib: Plan: -Stable -Continue BID Elqiuis -Will try and confirm current rate control medications with Daughter/DC summary from [facility] (7) Hypertension: Plan: -Stable -Will continue antihypertensives once confirmed (8) Diabetes mellitus, type 2: Plan: -Hold oral medications -Monitor BSG ACHS, goal is 110-140 -Start 5 units lantus BID as he appears to not be on insulin at home -Start CF of 50 ACHS -HH/DMII diet -Adjust regimen as needed (9) Chronic obstructive pulmonary disease: Plan: -Stable on RA, no new SOB -Continue home breathing treatments -Incentive spirometry (10) CAD (coronary artery disease): Plan: -Continue Plavix if still taking when meds are confirmed Plan The patient was discussed with Dr. Lopez at the time of the admission History of Present Illness Chief Complaint: Fall, Generalized weakness Primary Care Provider: Alen Clarke Yeh is an 88 year old male with a PMH significant for including aifb (on eliquis), CAD, COPD, diabetes mellitus, hypertension, previous TIA, and BPH with urinary retention currently with chronic indwelling Fatima who presented to the [facility] ED via EMS after he had a fall at home last night, and was too weak at home to get into his care for a Urology appointment. He remained stable in the ED. Labs were remarkable for a lymphocyte count of 0.43. Chest xray was read as "1. No acute cardiopulmonary findings. 2. No change in appearance of the chest. Large left lung bulla and dystrophic calcifications within the left hemithorax.". Xray of the right hip and pelvis was read as "No acute fracture or dislocation. ". Prior to admission the patient was given a 500 mL NSS bolus. We were asked to admit the patient for rehab placement. At the time of the exam the patient was sitting in bed in no acute distress. He explains that he fell and broke his right hip approximately 7 weeks ago. He confirms this was repaired at [facility]. He completed multiple weeks of inpatient rehab after his discharge and was discharged to his Daughter's house approximately a week ago. He states that he had been doing well at his Daughter's. Eating 3 good meals a day but not being as active as he probably should be. He explains that he slipped in the bathroom last night when tripped over the carpet in front of the shower. He hit his BL arms on the toilet and shower. He did not hit his head or lose consciousness. He explains that he has had the fatima catheter since his admission at [facility] as he had issues with post- operative urinary retention. His daughter exchanged his fatima last night after his fall. He confirms he has been without pain since his fall last night. Today, he woke and was feeling fine. His son came to pick him up for his Urology appointment but he was not strong enough in the BL legs to get into the Son's SUV. He states that he has not had an issue getting into his Daughter's SUV recently. He denies recent fever, chills, new paresthesias, unilateral weakness, changes in vision, hearing, taste, and smell, chest pain, increased SOB, abd pain, nausea, vomiting, diarrhea, hematuria, melena. He explains that he is currently on a course of prednisone prescribed by our ED team approximately one week ago for a BL LE rash. He and his family confirm that the rash has been improving since he has been on the prednisone. He is a full code and wishes for his Children to make medical decisions for him if he cannot make them himself. I was able to call and speak with his Daughter/Primary Caregiver (Fatou Pearson [phone]) to obtain further history. She states that her father fell approximately 7-7.5 weeks ago and sustained a right hip fracture. This was repaired at [facility], he has been recovering at her house since. She confirms that he was diagnosed with Afib during his admission at [facility] and was started on Eliquis on discharge. She was unable to confirm his current medications when I called as she was not home but will provide a list later today. She states that the patient fell last night in the bathroom. He reported to her that he slipped on the tile while wearing socks. They were able to help him stand with the assistance of neighbors. They did not have him evaluated as he did not complain of pain and was able to ambulate. He has had a fatima catheter placed due to urinary retention. He was supposed to go to a Urology follow-up today for voiding trial. Today he was unable to get his legs into the family car due to weakness and soreness. Call [facility] who will fax over the DC summary from his last admission. Will place in his physcial chart Please refer to Dr. Lopez's attestation for any changes to the treatment plan Allergies Allergy/AdvReac Type Severity Reaction Status Date / Time indomethacin AdvReac Intermediate LOWERED Verified 06/25/23 16:31 WHITE CELL COUNT meloxicam AdvReac Unknown CONTRINDICATED Verified 06/25/23 16:31 PER PT. metformin AdvReac Unknown pt unsure Verified 06/25/23 16:31 why Home Medications Medication Instructions Recorded Confirmed Type albuterol sulfate 90 mcg/actuation 2 puff inhalation Q4H PRN Wheezing 06/12/18 06/25/23 History aerosol inhaler allopurinol 300 mg tablet 300 mg PO QAM 06/12/18 06/25/23 History glipizide 10 mg tablet 10 mg PO BID 06/12/18 06/25/23 History metoprolol succinate 100 mg 100 mg PO QAM 06/12/18 06/25/23 History tablet,extended release 24 hr sitagliptin phosphate 100 mg 100 mg PO QAM 06/12/18 06/25/23 History tablet (Januvia) tamsulosin 0.4 mg capsule 0.8 mg PO QAM 06/12/18 06/25/23 History fluticasone furoate 200 1 ea inhalation DAILY 06/09/19 06/25/23 History mcg-vilanterol 25 mcg/dose inhalation powder (Breo Ellipta) atorvastatin 40 mg tablet 40 mg PO QAM #30 tabs 06/11/19 06/25/23 Rx clopidogrel 75 mg tablet 75 mg PO QAM #30 tabs 06/11/19 06/25/23 Rx repaglinide 0.5 mg tablet 0.5 mg PO BID #60 tabs 06/11/19 06/25/23 Rx amlodipine 5 mg tablet 5 mg PO DAILY 06/25/23 06/25/23 History apixaban 2.5 mg tablet (Eliquis) 2.5 mg PO BID 06/25/23 06/25/23 History buspirone 5 mg tablet 2.5 mg PO BID 06/25/23 06/25/23 History colchicine 0.6 mg tablet 0.6 mg PO BID PRN GOUT FLARES 06/25/23 06/25/23 History famotidine 40 mg tablet 40 mg PO DAILYBB 06/25/23 06/25/23 History fluticasone 100 mcg-salmeterol 50 1 inh inhalation BID 06/25/23 06/25/23 History mcg/dose blistr powdr for inhalation (Advair Diskus) fluticasone propionate 50 2 spray intranasal DAILY 06/25/23 06/25/23 History mcg/actuation nasal spray,suspension lorazepam 1 mg tablet 1 mg PO Q6H PRN Anxiety 06/25/23 06/25/23 History losartan 50 mg tablet 50 mg PO DAILY 06/25/23 06/25/23 History prednisone 20 mg tablet See Rx Instructions .Route .COMPLEX 06/25/23 06/25/23 History testosterone 1 % (50 mg/5 gram) 1 packet transdermal DAILY 06/25/23 06/25/23 History transdermal gel packet Past Med/Surg History Medical History (Updated 06/25/23 @ 16:24 by James Leigh DO) Urinary retention CAD (coronary artery disease) s/p stent to RCA x 1 2009 Neuropathy LEFT LOWER LEG/FOOT. PT STATES HE HAS DROP FOOT. BPH (benign prostatic hyperplasia) Osteoarthritis Diabetes mellitus, type 2 Chronic obstructive pulmonary disease very rare albuterol use. Daily Advair, stable. Sleep apnea PT HAS CPAP DEVICE, DOES NOT CURRENTLY WEAR. Transient ischemic attack (TIA) JANUARY 2018. NO RESIDUAL. Hypertension Hyperlipidemia Surgical History History of carotid endarterectomy LEFT. 2018 in [place] History of tonsillectomy History of colonoscopy History of cholecystectomy Fusion of spine LUMBAR History of cardiac cath 2009. STENT X1. [facility] Family History (Updated 06/09/19 @ 19:25 by Luann Joshi) Other Family history non-contributory Social History Smoking Status: Never smoker Cigarettes Per Day: H/O up to 2ppd; Second Hand Exposure: No; Do You Dip or Chew Tobacco: No; Hx Alcohol Use: No Hx Substance Use: No Preferred Language: Kyrgyz Communication Ability: Effective Web Application Dev Specialist Required: No Beliefs That Will Affect Care: None Current Living Situation: Family Other Information That Helps Us Care for You: No Feels Safe at Home: Yes Safety Concerns: Feels Safe At This Time Assistive Devices: Cane and Walker Physical Exam 2 Physical Exam: Physical Exam: General: In no acute distress, stated age, well-nourished, good hygiene HEENT: Normocephalic, atraumatic, no scleral icterus, pupils around round, symmetrical, and reactive to light, moist mucus membranes, trachea midline, no thyromegaly Chest/Pulm: No respiratory distress, symmetrical chest expansion, clear breath sounds throughout Cardiac: irregular rate and rhythm, no murmurs noted Abdomen: Negative for ascites and bruising, normoactive bowel sounds, soft, non-tender to palpation throughout Musculoskeletal: Symmetrical and without signs of acute trauma, upper and lower extremities with full ROM, no atrophy, spasticity, or flaccidity Extremities: Radial, dorsalis pedis, and posterior tibial pulses are intact and symmetrical, 1+ pitting edema noted in the BL LE's Skin: See pictures below Neuro: Alert and oriented to person, place, month, year, and president, no focal defects, CN II-XII tested and intact, Negative BL cerebellar testing and pronator drift, no tremors noted Psych: No acute distress, calm and cooperative during the exam Results & Data Results & Data Vital Signs (Past 12 Hours) Vital Signs Temp Pulse Pulse Resp BP BP Pulse Ox 06/25/23 14:15 36.4 C L 84 17 134/80 96 06/25/23 12:05 36.4 C L 100 H 17 100/64 96 06/25/23 09:27 36.6 C 67 22 116/54 L 100 O2 Del Method 06/25/23 14:15 Room Air 06/25/23 12:05 Room Air 06/25/23 09:27 Room Air Laboratory Results Abnormal lab results 06/25/23 Range/Units 10:05 RBC 3.58 L (4.70-6.10) M/uL Hgb 10.0 L (14.0-18.0) g/dl Hct 31.9 L (42.0-52.0) % MCHC 31.3 L (32.0-36.0) g/dL RDW Std Deviation 54.4 H (36.4-46.3) fL RDW Coeff of Reji 17.2 H (11.5-14.5) % Neut # (Auto) 7.82 H (1.40-6.50) K/uL Lymph # (Auto) 0.43 L (1.20-3.40) K/uL [place] # (Auto) 0.63 H (0.11-0.59) K/uL Immature Gran # (Auto) 0.21 H (0.01-0.20) K/uL Sodium 134 L (136-145) mmol/L BUN 52 H (6-23) mg/dl Creatinine 1.78 H (0.6-1.4) mg/dl BUN/Creatinine Ratio 29.2 H (10-20) Glucose 222 H (70-99(Fasting)) mg/dl Diagnostic Findings Chest X-Ray 06/25/23 09:35 XR chest 1V not portable CLINICAL HISTORY: weakness COMPARISON STUDY: Chest radiograph June 15, 2018. FINDINGS: No pneumothorax or pleural effusion is present. A large bulla within the mid to left upper lung is again noted. Dystrophic calcifications within the left hemithorax are again noted. There is mild cardiomegaly without evidence for pulmonary edema. There is no consolidation to suggest pneumonia. IMPRESSION: 1. No acute cardiopulmonary findings. 2. No change in appearance of the chest. Large left lung bulla and dystrophic calcifications within the left hemithorax. ACT 112: Negative or not required by law. Electronically signed by: Chano Tyler M.D. 06/25/2023 10:29 AM Hip/Pelvis X-Ray 06/25/23 12:52 XR hip RT 2V w pelvis HISTORY: 88 years-old Male fall acute pain of the right hip status post fall COMPARISON: 09/22/2014 TECHNIQUE: AP view the pelvis with 2 views of the right hip FINDINGS: No acute fracture or dislocation. Urinary bladder catheter. Arterial calcifications. Moderate left osteoarthritis. Unremarkable appearance of the right hip arthroplasty. IMPRESSION: No acute fracture or dislocation. ACT 112: Negative or not required by law. The above report was generated using voice recognition software. It may contain grammatical, syntax or spelling errors. Electronically signed by: Fercho Rodriguez M.D. 06/25/2023 3:01 PM ECG Additional Comments: Atrial fibrillation with premature ventricular or aberrantly conducted complexes Low voltage QRS Abnormal ECG When compared with ECG of 09-JUN-2019 19:22, Atrial fibrillation has replaced Sinus rhythm Confirmed by Dilip Barker ([id number]) on 06/25/2023 11:35:31 AM Code Status & VTE Plan Code Status Full code VTE Prophylaxis Plan VTE Prophylaxis will be ordered: Yes Supervising Physician Co-Signing Physician Notes I personally saw and examined the patient. I verified all gardner points and agree with Neeraj Coombs PA-C with the following exceptions and/or additions: 88 year old male presents to the ER with generalized weakness. Slipped in the shower last night and unable to get in his son's SUV this morning therefore brought to the ER. O/E HS irregular rhythm, regular rate, no murmurs, Chest CTAB, Abdo SNT, no CVA tenderness A/P Generalized weakness - no clear definitive worsening just difficulty getting in the car today after slipping in the shower yesterday. Left foot drop on exam and may benefit from foot brace - this is chronic per patient Possible catheter associated UTI - ceftriaxone pending urine culture Non specific rash eruption - appears to be steroid responsive per patient therefore will continue this PG Care Time/CCT Total # of Minutes Spent Total Time Spent with Patient: Total time spent is greater than 50% in coordination of care (as documented) at patient's floor/unit and/or counseling patient: Coding [place] [address] INT INP/OBS CARE 2/55MIN Patient Type Established Medical Decision Making Moderate Complexity Diagnoses Generalized weakness R53.1 UTI (urinary tract infection) N39.0 Urinary retention R33.9 Fall W19.XXXA Rash and nonspecific skin eruption R21 Afib I48.91 Hypertension I10 Diabetes mellitus, type 2 E11.9 Chronic obstructive pulmonary disease J44.9 CAD (coronary artery disease) I25.10
[2023-06-25 14:32] LABS: Appearance Urine Cloudy (Clear); Bacteria Urine Automated 4+ (Negative); Bilirubin Urine Negative (Negative); Blood Urine 3+ (Negative); Cast Urine Automated 0 /lpf (0-5); Color Urine Yellow; Epithelial Cell Urine Auto 0-5 /lpf (0-5); Glucose Urine UA Negative (Negative); Ketones Urine Negative (Negative); Leukocyte Esterase Urine 3+ (Negative); Nitrite Urine Negative (Negative); Protein Urine 2+ (Negative); RBC Urine Automated >30 /hpf (0-4); Specific Gravity Urine 1.018 (1.000-1.030); Urobilinogen Urine Negative (Negative); WBC Urine Automated >30 /hpf (0-5); pH Urine 6.5 (4.5-7.5)
--- NOTE | 2023-06-25 15:03 | XRay Report ---
XR hip RT 2V w pelvis HISTORY: 88 years-old Male fall acute pain of the right hip status post fall COMPARISON: 09/22/2014 TECHNIQUE: AP view the pelvis with 2 views of the right hip FINDINGS: No acute fracture or dislocation. Urinary bladder catheter. Arterial calcifications. Modera te left osteoarthritis. Unremarkable appearance of the right hip arthroplasty. IMPRESSION: No acute fracture or dislocation. ACT 112: Negative or not required by law. The above report was generated using voice recognition software. It may contain grammatical, syntax o r spelling errors. Electronically signed by: Fercho Rodriguez M.D. 06/25/2023 3:01 PM
[2023-06-25] MEDS ORDERED: CARBOHYDRATES FOR HYPOGLYCEMIA PO PRN (15:30)
[2023-06-25] MEDS ORDERED: GLUCOSE 10 TAB/TUBE PO PRN (15:30)
[2023-06-25] MEDS ORDERED: GLUCOSE 40% GEL 15 GM TUBE PO PRN (15:30)
[2023-06-25] MEDS ORDERED: DEXTROSE 50% 50 ML SYRINGE IV PRN (15:30)
[2023-06-25] MEDS ORDERED: GLUCAGON FOR INJ 1 MG VIAL SQ PRN (15:30)
[2023-06-25 16:09] LABS: C Reactive Protein < 0.50 mg/dl (0-0.5)
[2023-06-25 16:25] LABS: Thyroid Stimulating Hormone 2.384 uIu/ml (0.300-4.500)
[2023-06-25 16:45] LABS: Adenovirus PCR Not Detected (NotDetected); Bordetella parapertussis PCR Not Detected (NotDetected); Bordetella pertussis PCR Not Detected (NotDetected); Chlamydia pneumoniae PCR Not Detected (NotDetected); Coronavirus 229E PCR Not Detected (NotDetected); Coronavirus CoV-2 (COVID19)PCR Not Detected (NotDetected); Coronavirus HKU1 PCR Not Detected (NotDetected); Coronavirus NL63 PCR Not Detected (NotDetected); Coronavirus OC43PCR Not Detected (NotDetected); Human Metapneumovirus PCR Not Detected (NotDetected); Influenza A PCR Not Detected (NotDetected); Influenza B PCR Not Detected (NotDetected); Mycoplasma pneumoniae PCR Not Detected (NotDetected); Parainfluenza Virus 1 PCR Not Detected (NotDetected); Parainfluenza Virus 2 PCR Not Detected (NotDetected); Parainfluenza Virus 3 PCR Not Detected (NotDetected); Parainfluenza Virus 4 PCR Not Detected (NotDetected); Respiratory Syncytial VirusPCR Not Detected (NotDetected); Rhinovirus/Enterovirus PCR Not Detected (NotDetected)
[2023-06-25] MEDS ORDERED: ALBUTEROL HFA 8 GM INHALER INH PRN (17:48)
[2023-06-25] MEDS ORDERED: Patient's HEIGHT &/or WEIGHT Needed SCH (18:00)
[2023-06-25] MEDS: INSULIN ASPART PER UNIT CHARGE SC SCH ×2 (18:51→21:15)
[2023-06-25] MEDS ORDERED: PHARMACY GLYCEMIC MGMT CONSULT PRN (20:05)
[2023-06-25] MEDS: LANTUS PER UNIT CHARGE SQ SCH (21:14)
[2023-06-25] MEDS: APIXABAN 2.5 MG TAB PO SCH (21:15)
[2023-06-25] MEDS: busPIRone 5 MG TAB PO SCH (21:15)
[2023-06-26] MEDS: FAMOTIDINE 40 MG TABLET PO SCH (05:37)
--- NOTE | 2023-06-26 07:24 | Hospitalist Progress Note ---
Date of Service June 26, 2023 Assessment & Plan (1) Generalized weakness: Plan: -Increased weakness in the setting of recent rehab d/c after right hip fracture -Has been doing home PT/OT -No focal neuro defects on exam -WBC is WNL, patient does appear to have a UTI with cloudy urine, 3+ leukocyte esterase, > 30WBC, 4+ bacteria, and epithelial cells WNL - Likely combination of deconditioning and UTI -PT/OT consults placed; chronic left foot drop may benefit from brace - Fall precautions -HH/DMII/Low sodium diet with 1800 mL fluid restriction -Home med list in chart, d/c paperwork requested from [facility] (2) UTI (urinary tract infection): Plan: -Patient has required fatima placement since his admission last month at [facility] for right hip fracture repair -Fatima was exchanged prior to admission by daughter -Continue Ceftriaxone, follow urine cultures -Would wait to try voiding trial until his UTI has been adequately treated (3) Urinary retention: Plan: -Will exchange fatima cath -Continue flomax -Voiding trial when UTI is treated (4) Anemia: Plan: - Hbg= 9.4, normocytic - no recent baseline - continue to trend (5) Fall: Plan: -Fell when he slipped in the bathroom last night -No acute trauma on chest xray or xray of the right hip/pelvis -Patient denies current pain -Fall precuations -PT/OT (6) Rash and nonspecific skin eruption: Plan: -Patient has a rash on the BL LE's which appears somewhat like a vasculitis -Was seen in the [facility] ED on 06/16 and started on a 10 day taper of prednisone -Patient and family think rash has been improving since he started the prednisone -Derm consulted; plan for 2 days of prednisone 20mg daily, then taper to prednisone 10mg daily x 5 days, then prednisone 10mg every other day. F/u with derm 2 weeks (7) Afib: Plan: -Stable -Continue BID Eliquis (2.5mg based on age and creatine) (8) Hypertension: Plan: -Stable -Continue home medications (9) Diabetes mellitus, type 2: Plan: -Hold oral medications -Monitor BSG ACHS, goal is 110-140 -Start 5 units lantus BID -Start CF of 50 ACHS -HH/DMII diet -Adjust regimen as needed (10) Chronic obstructive pulmonary disease: Plan: -Stable on RA, no new SOB -Continue home breathing treatments -Incentive spirometry (11) CAD (coronary artery disease): Plan: -Continue Plavix Admission and Anticipated Discharge Date Admission Date: June 25, 2023 Supervising Physician Co-Signing Physician Notes I also saw the patient with the resident physician and confirmed gardner portions of the history and exam. I agree with the impression and plan as noted above. Upon morning exam, patient without complaints. He notes that the rash was previously on his arms, but has resolved. Remains on the legs, but non painful/non pruritic. EXAM 128/56, 58, Afebrile, 97 percent on RA A/O. No complaints at present. CV Irregularly irregular respirations non labored DATA HgB = 9.4 Urine culture GN bacilli, final pending IMPRESSION AND PLAN Generalized weakness Catheter Associated UTI Rash, suspect vasculitis Continue ceftriaxone pending final speciation and sensitivity Dermatology consult pending PT/OT evaluation pending Additional per resident documentation Subjective Rao was doing well this morning. Notes some increased weakness over the past few days. Some burning with urination. Review of Systems Review of Systems: As per above Physical Exam Physical Exam: Constitutional: well-appearing, no acute distress HEENT: NCAT, no conjunctival injection CV: regular rhythm, no murmur appreciated, extremities well-perfused Resp: CTABL, no wheezes/rales/rhonchi appreciated, no increased work of breathing GI: soft, nondistended, nontender, BS normoactive MSK: no gross deformities appreciated Skin:+ erythematous macules LE B/L Neuro: alert, oriented, no focal neurologic deficit appreciated Results & Data Results & Data Vital Signs (Past 12 Hours) Vital Signs Temp Pulse Resp BP Pulse Ox O2 Del Method 06/25/23 21:25 Room Air 06/25/23 20:52 36.2 C L 58 L 16 160/74 H 98 Room Air 06/25/23 20:20 56 L 18 141/74 H 98 Room Air Resident Activity Tracking Resident Involvement: Resident Care Provided Care Provided: Adult Hospital Medicine (4) Anemia Anemia type: unspecified type Qualified Code(s): D64.9 - Anemia, unspecified
[2023-06-26] MEDS: LOSARTAN POTASSIUM 50 MG TAB PO SCH (07:43)
[2023-06-26] MEDS: CLOPIDOGREL BISULFATE 75 MG TAB PO SCH (07:43)
[2023-06-26] MEDS: METOPROLOL SUCC 50MG EXT REL TAB PO SCH (07:43)
[2023-06-26] MEDS: predniSONE 20 MG TAB PO SCH (07:44)
[2023-06-26] MEDS: amLODIPine BESYLATE 5 MG TAB PO SCH (07:44)
[2023-06-26] MEDS: TAMSULOSIN HCL 0.4 MG CAP PO SCH (07:44)
[2023-06-26] MEDS: ATORVASTATIN 40 MG TAB PO SCH (07:44)
[2023-06-26] MEDS: busPIRone 5 MG TAB PO SCH ×2 (07:45→20:33)
[2023-06-26] MEDS: APIXABAN 2.5 MG TAB PO SCH ×2 (07:45→20:34)
[2023-06-26] MEDS: FLUTICASONE/VILANTEROL 200/25MCG 14 PUFFS/INHALER INH SCH (07:45)
[2023-06-26] MEDS: allopurinoL 300 MG TAB PO SCH (07:46)
[2023-06-26 07:57] LABS: Eosinophils % (auto) 3.4 %; Hematocrit (blood only) 29.2 % (42.0-52.0); Hemoglobin 9.4 g/dl (14.0-18.0); Immature Granulocytes # (auto) 0.11 K/uL (0.01-0.20); Immature Granulocytes % (auto) 1.8 %; Lymphocytes # (auto) 1.09 K/uL (1.20-3.40); Lymphocytes % (auto) 18.3 %; Mean Corpuscular Hemoglobin 28.1 pg (25.0-34.0); Mean Corpuscular Hgb Conc 32.2 g/dL (32.0-36.0); Mean Corpuscular Volume 87.4 fL (80.0-100.0); Mean Platelet Volume 9.7 fL (9.4-12.4); Monocytes # (auto) 0.64 K/uL (0.11-0.59); Monocytes % (auto) 10.8 %; Neutrophils # (auto) 3.91 K/uL (1.40-6.50); Neutrophils % (auto) 65.7 %; Platelet Count 175 K/uL (130-400); RDW Coefficient of Variation 17.4 % (11.5-14.5); RDW Standard Deviation 54.5 fL (36.4-46.3); Red Blood Count 3.34 M/uL (4.70-6.10); White Blood Count 5.95 K/ul (4.8-10.8)
[2023-06-26 08:18] LABS: INR 1.2 (0.9-1.1)
[2023-06-26] MEDS: LANTUS PER UNIT CHARGE SQ SCH ×2 (08:38→21:01)
[2023-06-26] MEDS: INSULIN ASPART PER UNIT CHARGE SC SCH ×4 (08:38→20:59)
[2023-06-26] MEDS ORDERED: FLUTICASONE/VILANTEROL 100/25MCG 14 PUFFS/INHALER INH SCH (09:00)
--- NOTE | 2023-06-26 09:59 | Pharmacy Report ---
Pharmacy Glycemic Short Note 2 - Date of Service June 26, 2023 - Glycemic Short BSG Results (Last 24 hours): 06/25/23 06/25/23 06/25/23 10:05 18:09 20:47 Glucose 222 H POC Glucose 255 H 266 H 06/26/23 07:14 Glucose POC Glucose 130 H OUTPATIENT ANTIDIABETIC REGIMEN: * Glipizide 10 mg PO BID * Januvia 100mg PO Daily * Repaglinide 0.5mg PO BID * A1c pending ASSESSMENT: * 88 year old male admitted w/ UTI, on IV ceftriaxone. On 10 days of Prednisone taper, down to 20mg for days 6-10 at this time. * Pt is maintained on oral antidiabetic agents as an outpatient * Oral agents are not recommended for inpatient use d/t drug interactions, changing PO intake, and difficulty titrating for acute hyper/hypoglycemia. ADA recommends re-initiating outpatient oral agents 1-2 days prior to discharge if/when appropriate if they were held on admission. * Will hold oral agents for admission and utilize SQ basal bolus insulin regimen which is the recommended regimen for inpatient glycemic control. * Patient received 5 units basal and 3 units NovoLog yesterday with BG in 200s, will add CR at this time and tighten CF. * Loosen CF/CR as steroid treatment is completed. PLAN FOR INPATIENT GLYCEMIC CONTROL: * Hold outpatient oral diabetes medications * Basal insulin * Lantus 5 units SQ BID * Bolus insulin * NovoLog per scale ACHS or Q6hrs while NPO * Goal Range: Low 110 mg/dL - High 140 mg/dL * Correction Factor: 30 mg/dL/unit * Nutritional / Prandial insulin per carb ratio of 1 unit per 12 grams CHO consumed
[2023-06-26 10:33] LABS: Estimated Average Glucose 177 mg/dl; Hemoglobin A1C 7.8 % (4.5-5.6)
[2023-06-26] MEDS: MAGNESIUM SULFATE / D5W 1 GM/100 ML BAG IV SCH ×4 (11:32→17:19)
--- NOTE | 2023-06-26 12:49 | Dermatology Consultation ---
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 Prior lab workup and recent CXR does not suggest any sign of internal involvement. Etiology is not completely clear based on his history; it may be idiopathic in nature as upwards of 50% of cases fall into this category. Further, it appears to be resolving on current prednisone taper that was started previously on 06/16/2023. I am concerned for the possibility of rebound flaring given the quick nature of this taper. Recommend the followin) Finish last 2 days of prednisone 20mg daily, then taper to prednisone 10mg daily x 5 days, then prednisone 10mg every other day until Rx is completed. 2) Follow-up as an outpatient 2 weeks s/p discharge to ensure that there has been no recurrence once prednisone has been completed. Thanks for the consult. Call with any questions/concerns. Present on Admission?: Yes History of Present Illness Reason for Consultation: Rash Requesting Physician: Dilip Velázquez MD Attending Physician: Dilip Velázquez MD History of Present Illness Patient is an 88-year-old male with past medical history significant for atrial fibrillation, CAD, COPD, diabetes, hypertension, history of TIA and BPH with urinary retention admitted to [facility] on 05/25/2023 following a fall. He has a recent history of undergoing right hip replacement at [facility] 6-7 weeks ago. He has had issues with postoperative urinary retention, so he has an indwelling Gerber catheter at this time. Since admission he has been found to have a urinary tract infection. I have been consulted for evaluation of a lower extremity rash. Patient presented to the [facility] ED on 05/16/2023 for initial evaluation of this rash. According to the patient and documentation in [facility], this started around 06/11/2023 on areas of the lower extremities. It gradually spread to the thighs, and he noticed a few areas on the arms. He reports some mild itching and burning at onset. No history of similar rash in the past. Laboratory evaluation in the ER was largely unremarkable with the exception of elevated CRP (5.79). He was empirically started on a 10-day prednisone taper at that time, and patient reports that the rash has been gradually improving since then. He has 2 days of prednisone 20 mg daily remaining. He is not developing any new lesions. He denies any itching or burning in the skin today. He is currently on ceftriaxone for his urinary tract infection and reports that he is feeling well. He denies any other skin complaints today. He does not report any recent infection or new medications prior to onset of his rash. Allergies Allergy/AdvReac Type Severity Reaction Status Date / Time indomethacin AdvReac Intermediate LOWERED Verified 06/25/23 16:31 WHITE CELL COUNT meloxicam AdvReac Unknown CONTRINDICATED Verified 06/25/23 16:31 PER PT. metformin AdvReac Unknown pt unsure Verified 06/25/23 16:31 why Home Medications Medication Instructions Recorded Confirmed Type albuterol sulfate 90 mcg/actuation 2 puff inhalation Q4H PRN Wheezing 06/12/18 06/25/23 History aerosol inhaler allopurinol 300 mg tablet 300 mg PO QAM 06/12/18 06/25/23 History glipizide 10 mg tablet 10 mg PO BID 06/12/18 06/25/23 History metoprolol succinate 100 mg 100 mg PO QAM 06/12/18 06/25/23 History tablet,extended release 24 hr sitagliptin phosphate 100 mg 100 mg PO QAM 06/12/18 06/25/23 History tablet (Januvia) tamsulosin 0.4 mg capsule 0.8 mg PO QAM 06/12/18 06/25/23 History fluticasone furoate 200 1 ea inhalation DAILY 06/09/19 06/25/23 History mcg-vilanterol 25 mcg/dose inhalation powder (Breo Ellipta) atorvastatin 40 mg tablet 40 mg PO QAM #30 tabs 06/11/19 06/25/23 Rx clopidogrel 75 mg tablet 75 mg PO QAM #30 tabs 06/11/19 06/25/23 Rx repaglinide 0.5 mg tablet 0.5 mg PO BID #60 tabs 06/11/19 06/25/23 Rx amlodipine 5 mg tablet 5 mg PO DAILY 06/25/23 06/25/23 History apixaban 2.5 mg tablet (Eliquis) 2.5 mg PO BID 06/25/23 06/25/23 History buspirone 5 mg tablet 2.5 mg PO BID 06/25/23 06/25/23 History colchicine 0.6 mg tablet 0.6 mg PO BID PRN GOUT FLARES 06/25/23 06/25/23 History famotidine 40 mg tablet 40 mg PO DAILYBB 06/25/23 06/25/23 History fluticasone 100 mcg-salmeterol 50 1 inh inhalation BID 06/25/23 06/25/23 History mcg/dose blistr powdr for inhalation (Advair Diskus) fluticasone propionate 50 2 spray intranasal DAILY 06/25/23 06/25/23 History mcg/actuation nasal spray,suspension lorazepam 1 mg tablet 1 mg PO Q6H PRN Anxiety 06/25/23 06/25/23 History losartan 50 mg tablet 50 mg PO DAILY 06/25/23 06/25/23 History prednisone 20 mg tablet See Rx Instructions .Route .COMPLEX 06/25/23 06/25/23 History testosterone 1 % (50 mg/5 gram) 1 packet transdermal DAILY 06/25/23 06/25/23 History transdermal gel packet Patient History Medical History (Updated 06/26/23 @ 12:50 by Clay Payne MD) Cutaneous vasculitis Urinary retention CAD (coronary artery disease) s/p stent to RCA x 1 2009 Neuropathy LEFT LOWER LEG/FOOT. PT STATES HE HAS DROP FOOT. BPH (benign prostatic hyperplasia) Osteoarthritis Diabetes mellitus, type 2 Chronic obstructive pulmonary disease very rare albuterol use. Daily Advair, stable. Sleep apnea PT HAS CPAP DEVICE, DOES NOT CURRENTLY WEAR. Transient ischemic attack (TIA) JANUARY 2018. NO RESIDUAL. Hypertension Hyperlipidemia Surgical History History of carotid endarterectomy LEFT. 2018 in [place] History of tonsillectomy History of colonoscopy History of cholecystectomy Fusion of spine LUMBAR History of cardiac cath 2009. STENT X1. [facility] Family History (Updated 06/09/19 @ 19:25 by Luann Joshi) Other Family history non-contributory Social History Smoking Status: Never smoker Cigarettes Per Day: H/O up to 2ppd; Second Hand Exposure: No; Do You Dip or Chew Tobacco: No; Hx Alcohol Use: No Hx Substance Use: No Preferred Language: Tunisian Communication Ability: Effective Bat Boy/Girl Required: No Beliefs That Will Affect Care: None Current Living Situation: Family Other Information That Helps Us Care for You: No Feels Safe at Home: Yes Safety Concerns: Feels Safe At This Time Assistive Devices: Cane and Walker Review of Systems Review of Systems: All systems reviewed & are unremarkable except as noted in HPI & below Constitutional: no fever and no chills Eyes: no eye pain Ear, Nose, Mouth, Throat: no mouth lesions Respiratory: no cough and no dyspnea Gastrointestinal: no abdominal pain, no nausea and no vomiting Musculoskeletal: no joint pain and no swelling Integumentary: as per Subjective / HPI Neurologic: no headache(s) Hematologic / Lymphatic: + easy bruising; no easy bleeding and no coagulopathy Allergy / Immunological: no lip swelling and no urticaria Physical Exam Physical Exam: General Appearance:Well developed, well-nourished and in no acute distress; sitting up in chair Psych:Alert, Oriented and Appropriate Skin Type:2 Face: no abnormalities noted. Eyelids/Ocular Mucosa: no abnormalities noted. Lips/Teeth/Gums: no abnormalities noted. Neck: no abnormalities noted. Right Lower Extremity:+fading, nonpalpable [id number]-fv-eopvoawl macules/patches on the dorsal foot, angel, mid anterior thigh Left Lower Extremity:+fading, nonpalpable jqsplwvrimht-uk-qnllbqab macules/patches on the dorsal foot, angel, mid anterior thigh Back:no abnormalities noted. Buttocks/Groin/Genitalia: no abnormalities noted. Right Upper Extremity:+ecchymoses on the dorsal forearm Left Upper Extremity:+ecchymoses on the dorsal forearm Chest/Breast/Axillae:no abnormalities noted. Abdomen:no abnormalities noted. Results & Data Vital Signs (Past 12 Hours) Vital Signs Temp Pulse Resp BP Pulse Ox O2 Del Method 06/26/23 08:00 Room Air 06/26/23 07:13 36.3 C L 58 L 16 128/56 L 97 Room Air Laboratory Results 06/26/23 06/26/23 06/26/23 Range/Units 11:14 07:32 07:14 WBC 5.95 (4.8-10.8) K/ul RBC 3.34 L (4.70-6.10) M/uL Hgb 9.4 L (14.0-18.0) g/dl Hct 29.2 L (42.0-52.0) % MCV 87.4 (80.0-100.0) fL MCH 28.1 (25.0-34.0) pg MCHC 32.2 (32.0-36.0) g/dL RDW Std Deviation 54.5 H (36.4-46.3) fL RDW Coeff of Reji 17.4 H (11.5-14.5) % Plt Count 175 (130-400) K/uL MPV 9.7 (9.4-12.4) fL Immature Gran % (Auto) 1.8 % Neut % (Auto) 65.7 % Lymph % (Auto) 18.3 % [place] % (Auto) 10.8 % Eos % (Auto) 3.4 % Baso % (Auto) 0.0 % Neut # (Auto) 3.91 (1.40-6.50) K/uL Lymph # (Auto) 1.09 L (1.20-3.40) K/uL [place] # (Auto) 0.64 H (0.11-0.59) K/uL Eos # (Auto) 0.20 (0.00-0.50) K/uL Baso # (Auto) 0.00 (0.00-0.20) K/uL Immature Gran # (Auto) 0.11 (0.01-0.20) K/uL ESR (0-20) mm/hr PT 13.0 H (9.0-12.0) Seconds INR 1.2 H (0.9-1.1) POC Glucose 185 H 130 H (70-99) mg/dl Estimat Average Glucose 177 mg/dl Hemoglobin A1c 7.8 H (4.5-5.6) % Magnesium 1.4 L (1.7-2.4) mg/dl C-Reactive Protein (0-0.5) mg/dl TSH (0.300-4.500) uIu/ml Random Cortisol mcg/dl Urine Color Urine Appearance (Clear) Urine pH (4.5-7.5) Ur Specific [place] (1.000-1.030) Urine Protein (Negative) Urine Glucose (UA) (Negative) Urine Ketones (Negative) Urine Blood (Negative) Urine Nitrite (Negative) Urine Bilirubin (Negative) Urine Urobilinogen (Negative) Ur Leukocyte Esterase (Negative) Urine WBC (Auto) (0-5) /hpf Urine RBC (Auto) (0-4) /hpf U Hyaline Cast (Auto) (0-5) /lpf U Epithel Cells (Auto) (0-5) /lpf Urine Bacteria (Auto) (Negative) Adenovirus (PCR) (NotDetected) B. pertussis DNA (PCR) (NotDetected) B.parapertussis DNA PCR (NotDetected) C. pneumoniae DNA (PCR) (NotDetected) Coronavirus OC43 (PCR) (NotDetected) Coronavirus HKU1 (PCR) (NotDetected) Coronavirus 229E (PCR) (NotDetected) SARS-CoV-2 (PCR) (NotDetected) Coronavirus NL63 (PCR) (NotDetected) Human Metapneumovir PCR (NotDetected) Influenza Type A (PCR) (NotDetected) Influenza Type B (PCR) (NotDetected) M. pneumoniae (PCR) (NotDetected) Parainfluenza 1 (PCR) (NotDetected) Parainfluenza 2 (PCR) (NotDetected) Parainfluenza 3 (PCR) (NotDetected) Parainfluenza 4 (PCR) (NotDetected) RSV (PCR) (NotDetected) Entero/Rhino (PCR) (NotDetected) 06/25/23 06/25/23 06/25/23 Range/Units 20:47 18:09 15:00 WBC (4.8-10.8) K/ul RBC (4.70-6.10) M/uL Hgb (14.0-18.0) g/dl Hct (42.0-52.0) % MCV (80.0-100.0) fL MCH (25.0-34.0) pg MCHC (32.0-36.0) g/dL RDW Std Deviation (36.4-46.3) fL RDW Coeff of Reji (11.5-14.5) % Plt Count (130-400) K/uL MPV (9.4-12.4) fL Immature Gran % (Auto) % Neut % (Auto) % Lymph % (Auto) % [place] % (Auto) % Eos % (Auto) % Baso % (Auto) % Neut # (Auto) (1.40-6.50) K/uL Lymph # (Auto) (1.20-3.40) K/uL [place] # (Auto) (0.11-0.59) K/uL Eos # (Auto) (0.00-0.50) K/uL Baso # (Auto) (0.00-0.20) K/uL Immature Gran # (Auto) (0.01-0.20) K/uL ESR (0-20) mm/hr PT (9.0-12.0) Seconds INR (0.9-1.1) POC Glucose 266 H 255 H (70-99) mg/dl Estimat Average Glucose mg/dl Hemoglobin A1c (4.5-5.6) % Magnesium (1.7-2.4) mg/dl C-Reactive Protein (0-0.5) mg/dl TSH (0.300-4.500) uIu/ml Random Cortisol mcg/dl Urine Color Urine Appearance (Clear) Urine pH (4.5-7.5) Ur Specific [place] (1.000-1.030) Urine Protein (Negative) Urine Glucose (UA) (Negative) Urine Ketones (Negative) Urine Blood (Negative) Urine Nitrite (Negative) Urine Bilirubin (Negative) Urine Urobilinogen (Negative) Ur Leukocyte Esterase (Negative) Urine WBC (Auto) (0-5) /hpf Urine RBC (Auto) (0-4) /hpf U Hyaline Cast (Auto) (0-5) /lpf U Epithel Cells (Auto) (0-5) /lpf Urine Bacteria (Auto) (Negative) Adenovirus (PCR) Not Detected (NotDetected) B. pertussis DNA (PCR) Not Detected (NotDetected) B.parapertussis DNA PCR Not Detected (NotDetected) C. pneumoniae DNA (PCR) Not Detected (NotDetected) Coronavirus OC43 (PCR) Not Detected (NotDetected) Coronavirus HKU1 (PCR) Not Detected (NotDetected) Coronavirus 229E (PCR) Not Detected (NotDetected) SARS-CoV-2 (PCR) Not Detected (NotDetected) Coronavirus NL63 (PCR) Not Detected (NotDetected) Human Metapneumovir PCR Not Detected (NotDetected) Influenza Type A (PCR) Not Detected (NotDetected) Influenza Type B (PCR) Not Detected (NotDetected) M. pneumoniae (PCR) Not Detected (NotDetected) Parainfluenza 1 (PCR) Not Detected (NotDetected) Parainfluenza 2 (PCR) Not Detected (NotDetected) Parainfluenza 3 (PCR) Not Detected (NotDetected) Parainfluenza 4 (PCR) Not Detected (NotDetected) RSV (PCR) Not Detected (NotDetected) Entero/Rhino (PCR) Not Detected (NotDetected) 06/25/23 06/25/23 Range/Units 14:13 10:05 WBC (4.8-10.8) K/ul RBC (4.70-6.10) M/uL Hgb (14.0-18.0) g/dl Hct (42.0-52.0) % MCV (80.0-100.0) fL MCH (25.0-34.0) pg MCHC (32.0-36.0) g/dL RDW Std Deviation (36.4-46.3) fL RDW Coeff of Reji (11.5-14.5) % Plt Count (130-400) K/uL MPV (9.4-12.4) fL Immature Gran % (Auto) % Neut % (Auto) % Lymph % (Auto) % [place] % (Auto) % Eos % (Auto) % Baso % (Auto) % Neut # (Auto) (1.40-6.50) K/uL Lymph # (Auto) (1.20-3.40) K/uL [place] # (Auto) (0.11-0.59) K/uL Eos # (Auto) (0.00-0.50) K/uL Baso # (Auto) (0.00-0.20) K/uL Immature Gran # (Auto) (0.01-0.20) K/uL ESR 9 (0-20) mm/hr PT (9.0-12.0) Seconds INR (0.9-1.1) POC Glucose (70-99) mg/dl Estimat Average Glucose mg/dl Hemoglobin A1c (4.5-5.6) % Magnesium (1.7-2.4) mg/dl C-Reactive Protein < 0.50 (0-0.5) mg/dl TSH 2.384 (0.300-4.500) uIu/ml Random Cortisol 11.06 mcg/dl Urine Color Yellow Urine Appearance Cloudy A (Clear) Urine pH 6.5 (4.5-7.5) Ur Specific [place] 1.018 (1.000-1.030) Urine Protein 2+ H (Negative) Urine Glucose (UA) Negative (Negative) Urine Ketones Negative (Negative) Urine Blood 3+ H (Negative) Urine Nitrite Negative (Negative) Urine Bilirubin Negative (Negative) Urine Urobilinogen Negative (Negative) Ur Leukocyte Esterase 3+ H (Negative) Urine WBC (Auto) >30 H (0-5) /hpf Urine RBC (Auto) >30 H (0-4) /hpf U Hyaline Cast (Auto) 0 (0-5) /lpf U Epithel Cells (Auto) 0-5 (0-5) /lpf Urine Bacteria (Auto) 4+ H (Negative) Adenovirus (PCR) (NotDetected) B. pertussis DNA (PCR) (NotDetected) B.parapertussis DNA PCR (NotDetected) C. pneumoniae DNA (PCR) (NotDetected) Coronavirus OC43 (PCR) (NotDetected) Coronavirus HKU1 (PCR) (NotDetected) Coronavirus 229E (PCR) (NotDetected) SARS-CoV-2 (PCR) (NotDetected) Coronavirus NL63 (PCR) (NotDetected) Human Metapneumovir PCR (NotDetected) Influenza Type A (PCR) (NotDetected) Influenza Type B (PCR) (NotDetected) M. pneumoniae (PCR) (NotDetected) Parainfluenza 1 (PCR) (NotDetected) Parainfluenza 2 (PCR) (NotDetected) Parainfluenza 3 (PCR) (NotDetected) Parainfluenza 4 (PCR) (NotDetected) RSV (PCR) (NotDetected) Entero/Rhino (PCR) (NotDetected) Diagnostic Findings Imaging studies and microbiology reviewed in [facility]. Medications Administered MAR reviewed in [facility]. PG Care Time/CCT Total # of Minutes Spent Total Time Spent with Patient: Total time spent is greater than 50% in coordination of care (as documented) at patient's floor/unit and/or counseling patient: Coding Level of Care Code 13641 INT INP/OBS CARE 2/55MIN Diagnoses Cutaneous vasculitis L95.9
[2023-06-26] MEDS ORDERED: cefTRIAXone SODIUM 2,000 MG in DEXTROSE 5 % MINI-B 50 ML IV SCH (15:00)
[2023-06-26] MEDS: cefTRIAXone SODIUM 2,000 MG in DEXTROSE 5 % MINI-B 50 ML IV SCH (16:20)
[2023-06-26] MEDS ORDERED: MELATONIN 3 MG TAB PO PRN (20:40)
[2023-06-27] MEDS: FAMOTIDINE 40 MG TABLET PO SCH (05:33)
--- NOTE | 2023-06-27 07:22 | Hospitalist Progress Note ---
Date of Service June 27, 2023 Assessment & Plan (1) Generalized weakness: Plan: -Increased weakness in the setting of recent rehab d/c after right hip fracture -Has been doing home PT/OT -No focal neuro defects on exam -WBC is WNL, patient does appear to have a UTI with cloudy urine, 3+ leukocyte esterase, > 30WBC, 4+ bacteria, and epithelial cells WNL - Likely combination of deconditioning and UTI -PT/OT consults placed; chronic left foot drop may benefit from brace - Fall precautions -HH/DMII/Low sodium diet with 1800 mL fluid restriction -Home med list in chart, d/c paperwork requested from [facility] (2) UTI (urinary tract infection): Plan: -Patient has required fatima placement since his admission last month at [facility] for right hip fracture repair -Fatima was exchanged prior to admission by daughter -Continue Ceftriaxone, follow urine cultures -Would wait to try voiding trial until his UTI has been adequately treated (3) Urinary retention: Plan: -Will exchange fatima cath -Continue flomax -Voiding trial when UTI is treated (4) Anemia: Plan: - Hbg= 9.4, normocytic - no recent baseline - continue to trend (5) Fall: Plan: -Fell when he slipped in the bathroom last night -No acute trauma on chest xray or xray of the right hip/pelvis -Patient denies current pain -Fall precuations -PT/OT (6) Rash and nonspecific skin eruption: Plan: -Patient has a rash on the BL LE's which appears somewhat like a vasculitis -Was seen in the [facility] ED on 06/16 and started on a 10 day taper of prednisone -Patient and family think rash has been improving since he started the prednisone -Derm consulted; plan for 2 days of prednisone 20mg daily, then taper to prednisone 10mg daily x 5 days, then prednisone 10mg every other day. F/u with derm 2 weeks (7) Afib: Plan: -Stable -Continue BID Eliquis (2.5mg based on age and creatine) (8) Hypertension: Plan: -Stable -Continue home medications (9) Diabetes mellitus, type 2: Plan: -Hold oral medications -Monitor BSG ACHS, goal is 110-140 -Start 5 units lantus BID -Start CF of 50 ACHS -HH/DMII diet -Adjust regimen as needed (10) Chronic obstructive pulmonary disease: Plan: -Stable on RA, no new SOB -Continue home breathing treatments -Incentive spirometry (11) CAD (coronary artery disease): Plan: -Continue Plavix Admission and Anticipated Discharge Date Admission Date: June 26, 2023 Review of Systems Review of Systems: As per above Physical Exam Physical Exam: Constitutional: well-appearing, no acute distress HEENT: NCAT, no conjunctival injection CV: regular rhythm, no murmur appreciated, extremities well-perfused Resp: CTABL, no wheezes/rales/rhonchi appreciated, no increased work of breathing GI: soft, nondistended, nontender, BS normoactive MSK: no gross deformities appreciated Skin:+ erythematous macules LE B/L Neuro: alert, oriented, no focal neurologic deficit appreciated Results & Data Results & Data Vital Signs (Past 12 Hours) Vital Signs Temp Pulse Resp BP Pulse Ox Pulse Ox O2 Del Method 06/26/23 20:32 36.4 C L 61 17 137/66 96 Room Air 06/26/23 20:32 96 O2 Del Method 06/26/23 20:32 06/26/23 20:32 Room Air (4) Anemia Anemia type: unspecified type Qualified Code(s): D64.9 - Anemia, unspecified
[2023-06-27] MEDS: ATORVASTATIN 40 MG TAB PO SCH (07:45)
[2023-06-27] MEDS: TAMSULOSIN HCL 0.4 MG CAP PO SCH (07:45)
[2023-06-27] MEDS: LOSARTAN POTASSIUM 50 MG TAB PO SCH (07:45)
[2023-06-27] MEDS: allopurinoL 300 MG TAB PO SCH (07:46)
[2023-06-27] MEDS: busPIRone 5 MG TAB PO SCH (07:46)
[2023-06-27] MEDS: amLODIPine BESYLATE 5 MG TAB PO SCH (07:46)
[2023-06-27] MEDS: METOPROLOL SUCC 50MG EXT REL TAB PO SCH (07:46)
[2023-06-27] MEDS: CLOPIDOGREL BISULFATE 75 MG TAB PO SCH (07:46)
[2023-06-27] MEDS: predniSONE 20 MG TAB PO SCH (07:47)
[2023-06-27] MEDS: APIXABAN 2.5 MG TAB PO SCH (07:47)
[2023-06-27] MEDS: FLUTICASONE/VILANTEROL 200/25MCG 14 PUFFS/INHALER INH SCH (07:47)
[2023-06-27] MEDS: INSULIN ASPART PER UNIT CHARGE SC SCH ×3 (08:25→17:09)
[2023-06-27 08:31] LABS: Basophils # (auto) 0.01 K/uL (0.00-0.20); Basophils % (auto) 0.2 %; Eosinophils # (auto) 0.14 K/uL (0.00-0.50); Eosinophils % (auto) 2.7 %; Hematocrit (blood only) 30.7 % (42.0-52.0); Hemoglobin 9.4 g/dl (14.0-18.0); Immature Granulocytes # (auto) 0.05 K/uL (0.01-0.20); Lymphocytes # (auto) 1.08 K/uL (1.20-3.40); Lymphocytes % (auto) 20.7 %; Mean Corpuscular Hemoglobin 27.5 pg (25.0-34.0); Mean Corpuscular Hgb Conc 30.6 g/dL (32.0-36.0); Mean Corpuscular Volume 89.8 fL (80.0-100.0); Mean Platelet Volume 10.2 fL (9.4-12.4); Monocytes # (auto) 0.56 K/uL (0.11-0.59); Monocytes % (auto) 10.7 %; Neutrophils # (auto) 3.37 K/uL (1.40-6.50); Neutrophils % (auto) 64.7 %; Platelet Count 161 K/uL (130-400); RDW Coefficient of Variation 17.2 % (11.5-14.5); RDW Standard Deviation 55.9 fL (36.4-46.3); Red Blood Count 3.42 M/uL (4.70-6.10); White Blood Count 5.21 K/ul (4.8-10.8)
[2023-06-27 08:48] LABS: Albumin Globulin Ratio 1.3 (0.9-2); BUN Creatinine Ratio 25.3 (10-20); Bilirubin,Total 0.5 mg/dl (0.2-1.0); Calcium 8.2 mg/dl (8.6-10.3); Creatinine Clr Calc Pharmacy 34.1 ml/min; Est GFR (African American) 37.9 ml/min; Est GFR (Non-African American) 32.7 ml/min; Globulin 2.4 gm/dl (2.5-4.0); Total Protein 5.4 gm/dl (6.0-8.3)
[2023-06-27 09:00] LABS: INR 1.1 (0.9-1.1); Prothrombin Time 12.4 Seconds (9.0-12.0)
[2023-06-27] MEDS ORDERED: LANTUS PER UNIT CHARGE SQ SCH (09:00)
--- NOTE | 2023-06-27 14:10 | Urology Consultation ---
Date of Consultation June 27, 2023 Assessment & Plan (1) UTI (urinary tract infection): (2) Urinary retention: Plan 88-year-old male who is admitted to medicine service with generalized weakness, fall, and UTI. Urology asked to evaluate patient due to concerns of catheter placement. Gerber catheter draining appropriatelyurine is clear yellow. Exam consistent with ventral erosion down to the penoscrotal junction. Unfortunately at this point he would need a major reconstructive surgery to reconstruct his urethra. For now, recommend keeping the catheter for maximum decompression while treating the infection. Continue supportive care and antibiotics. Plan to follow-up with our service outpatient as scheduled 07/11/23. Urology will sign-off. Please contact any further questions or concerns. Plan of care reviewed with Dr. Pierson. Supervising Physician Co-Signing Physician Notes Discussed patient with CHANNING. Agree with plan. Unusual for patient to develop such severe ventral urethral erosion in such short time frame. Wonder if patient has had a catheter longer than reported. Regardless, unfortunately not much can be done at this point outside of major reconstruction. Maintain catheter, can consider void trial in the future. History of Present Illness Attending Physician: Dilip Velázquez MD History of Present Illness 88-year-old male who is admitted to medicine service with generalized weakness, fall, and suspected UTI. Urology asked to evaluate patient due to concerns of catheter placement. Patient was recently seen in the urology office by Dr. Carey for follow-up of urinary retention. Patient had a right hip fracture approximately 8 weeks ago which with he had repaired at [facility]. He developed urinary retention following his procedure requiring Gerber catheter placement. He has had a catheter in place since then. He was seen in the urology clinic on 06/18/2023. A cystoscopy was recommended for further evaluation of his bladder and prostate. He is currently scheduled on 07/11/[address] Ko for cystoscopy. Patient examined at bedside this afternoon. Awake, resting bed on arrival. No acute distress. Gerber catheter intact, draining clear yellow urine. On exam, it appears that there is catheter erosion involving the meatus glans and penile shaft to the scrotum. Allergies Allergy/AdvReac Type Severity Reaction Status Date / Time indomethacin AdvReac Intermediate LOWERED Verified 06/25/23 16:31 WHITE CELL COUNT meloxicam AdvReac Unknown CONTRINDICATED Verified 06/25/23 16:31 PER PT. metformin AdvReac Unknown pt unsure Verified 06/25/23 16:31 why Home Medications Medication Instructions Recorded Confirmed Type albuterol sulfate 90 mcg/actuation 2 puff inhalation Q4H PRN Wheezing 06/12/18 06/25/23 History aerosol inhaler allopurinol 300 mg tablet 300 mg PO QAM 06/12/18 06/25/23 History glipizide 10 mg tablet 10 mg PO BID 06/12/18 06/25/23 History metoprolol succinate 100 mg 100 mg PO QAM 06/12/18 06/25/23 History tablet,extended release 24 hr sitagliptin phosphate 100 mg 100 mg PO QAM 06/12/18 06/25/23 History tablet (Januvia) tamsulosin 0.4 mg capsule 0.8 mg PO QAM 06/12/18 06/25/23 History fluticasone furoate 200 1 ea inhalation DAILY 06/09/19 06/25/23 History mcg-vilanterol 25 mcg/dose inhalation powder (Breo Ellipta) atorvastatin 40 mg tablet 40 mg PO QAM #30 tabs 06/11/19 06/25/23 Rx clopidogrel 75 mg tablet 75 mg PO QAM #30 tabs 06/11/19 06/25/23 Rx repaglinide 0.5 mg tablet 0.5 mg PO BID #60 tabs 06/11/19 06/25/23 Rx amlodipine 5 mg tablet 5 mg PO DAILY 06/25/23 06/25/23 History apixaban 2.5 mg tablet (Eliquis) 2.5 mg PO BID 06/25/23 06/25/23 History buspirone 5 mg tablet 2.5 mg PO BID 06/25/23 06/25/23 History colchicine 0.6 mg tablet 0.6 mg PO BID PRN GOUT FLARES 06/25/23 06/25/23 History famotidine 40 mg tablet 40 mg PO DAILYBB 06/25/23 06/25/23 History fluticasone 100 mcg-salmeterol 50 1 inh inhalation BID 06/25/23 06/25/23 History mcg/dose blistr powdr for inhalation (Advair Diskus) fluticasone propionate 50 2 spray intranasal DAILY 06/25/23 06/25/23 History mcg/actuation nasal spray,suspension lorazepam 1 mg tablet 1 mg PO Q6H PRN Anxiety 06/25/23 06/25/23 History losartan 50 mg tablet 50 mg PO DAILY 06/25/23 06/25/23 History testosterone 1 % (50 mg/5 gram) 1 packet transdermal DAILY 06/25/23 06/25/23 History transdermal gel packet cefdinir 300 mg capsule 300 mg PO BID 5 days #10 caps 06/27/23 Rx prednisone 10 mg tablet 10 mg PO DIRECTED #10 tabs 06/27/23 Rx Patient History Medical History (Updated 06/26/23 @ 12:50 by Clay Payne MD) Cutaneous vasculitis Urinary retention CAD (coronary artery disease) s/p stent to RCA x 1 2009 Neuropathy LEFT LOWER LEG/FOOT. PT STATES HE HAS DROP FOOT. BPH (benign prostatic hyperplasia) Osteoarthritis Diabetes mellitus, type 2 Chronic obstructive pulmonary disease very rare albuterol use. Daily Advair, stable. Sleep apnea PT HAS CPAP DEVICE, DOES NOT CURRENTLY WEAR. Transient ischemic attack (TIA) JANUARY 2018. NO RESIDUAL. Hypertension Hyperlipidemia Surgical History History of carotid endarterectomy LEFT. 2018 in [place] History of tonsillectomy History of colonoscopy History of cholecystectomy Fusion of spine LUMBAR History of cardiac cath 2009. STENT X1. [facility] Family History (Updated 06/09/19 @ 19:25 by Luann Joshi) Other Family history non-contributory Social History Smoking Status: Never smoker Cigarettes Per Day: H/O up to 2ppd; Second Hand Exposure: No; Do You Dip or Chew Tobacco: No; Hx Alcohol Use: No Hx Substance Use: No Preferred Language: Belgian Communication Ability: Effective Manager Emergency Department Required: No Beliefs That Will Affect Care: None Current Living Situation: Family Feels Safe at Home: Yes Assistive Devices: Cane and Walker Review of Systems Review of Systems: All systems reviewed & are unremarkable except as noted in HPI & below Physical Exam Constitutional: no acute distress Respiratory: no respiratory distress and no labored breathing Musculoskeletal: Head/Neck/Chest: normocephalic Skin: Warm and dry Neurologic: moves all extremities and awake Psychiatric: A+Ox3, euthymic affect Genitourinary: Gerber intact, draining clear yellow urine. Ventral erosion down to the penoscrotal junction. Results & Data Vital Signs (Past 12 Hours) Vital Signs Temp Pulse Resp BP BP Pulse Ox O2 Del Method 06/27/23 11:53 36.3 C L 59 L 13 128/64 95 Room Air 06/27/23 08:00 Room Air 06/27/23 07:56 35.3 C L 60 13 128/62 96 Room Air PG Care Time/CCT Total # of Minutes Spent Total Time Spent with Patient: Total time spent is greater than 50% in coordination of care (as documented) at patient's floor/unit and/or counseling patient: Coding Level of Care Code 82083 INT INP/OBS CARE MIN Diagnoses UTI (urinary tract infection) N39.0; R31.9 Hematuria presence: with hematuria Urinary tract infection type: site unspecified Urinary retention R33.9 (1) UTI (urinary tract infection) Hematuria presence: with hematuria Urinary tract infection type: site unspecified Qualified Code(s): N39.0 - Urinary tract infection, site not specified; R31.9 - Hematuria, unspecified
--- NOTE | 2023-06-27 14:51 | Pharmacy Report ---
Pharmacy Glycemic Short Note 2 - Date of Service June 27, 2023 - Glycemic Short BSG Results (Last 24 hours): 06/26/23 06/26/23 06/27/23 16:33 20:41 07:34 Glucose POC Glucose 253 H 289 H 135 H 06/27/23 06/27/23 08:02 11:34 Glucose 130 H POC Glucose 202 H OUTPATIENT ANTIDIABETIC REGIMEN: * Glipizide 10 mg PO BID * Januvia 100mg PO Daily * Repaglinide 0.5mg PO BID * A1c 7.8% (06/26/23) ASSESSMENT: 06/27: * Rao received 32 units of insulin yesterday (10 were basal) * Fasting BSG within goal range, gave yesterday's basal dosage in AM, may need to decrease based on decreasing prednisone taper * BSGs tend to increase throughout the day, tighten Novolog parameters, may need to loosen tomorrow based on decreasing prednisone tapermay need to decrease based on decreasing prednisone taper * Prednisone taper 10mg starting tomorrow x5 days, then every other day x5 days * He continues on ceftriaxone for UTI 06/26: * 88 year old male admitted w/ UTI, on IV ceftriaxone. On 10 days of Prednisone taper, down to 20mg for days 6-10 at this time. * Pt is maintained on oral antidiabetic agents as an outpatient * Oral agents are not recommended for inpatient use d/t drug interactions, changing PO intake, and difficulty titrating for acute hyper/hypoglycemia. ADA recommends re-initiating outpatient oral agents 1-2 days prior to discharge if/when appropriate if they were held on admission. * Will hold oral agents for admission and utilize SQ basal bolus insulin regimen which is the recommended regimen for inpatient glycemic control. * Patient received 5 units basal and 3 units NovoLog yesterday with BG in 200s, will add CR at this time and tighten CF. * Loosen CF/CR as steroid treatment is completed. PLAN FOR INPATIENT GLYCEMIC CONTROL: * Hold outpatient oral diabetes medications * Basal insulin * Lantus 10 units SQ QAM * Bolus insulin * NovoLog per scale ACHS or Q6hrs while NPO * Goal Range: Low 110 mg/dL - High 140 mg/dL * Correction Factor: 20 mg/dL/unit * Nutritional / Prandial insulin per carb ratio of 1 unit per 6 grams CHO consumed
[2023-06-27] MEDS: cefTRIAXone SODIUM 2,000 MG in DEXTROSE 5 % MINI-B 50 ML IV SCH (15:02)
--- NOTE | 2023-06-27 15:53 | Discharge Summary ---
Date of Service June 27, 2023 Admission HPI Per Admitting Provider Rao is an 88 year old male with a PMH significant for including aifb (on eliquis), CAD, COPD, diabetes mellitus, hypertension, previous TIA, and BPH with urinary retention currently with chronic indwelling Fatima who presented to the [facility] ED via EMS after he had a fall at home last night, and was too weak at home to get into his care for a Urology appointment. He remained stable in the ED. Labs were remarkable for a lymphocyte count of 0.43. Chest xray was read as "1. No acute cardiopulmonary findings. 2. No change in appearance of the chest. Large left lung bulla and dystrophic calcifications within the left hemithorax.". Xray of the right hip and pelvis was read as "No acute fracture or dislocation. ". Prior to admission the patient was given a 500 mL NSS bolus. We were asked to admit the patient for rehab placement. At the time of the exam the patient was sitting in bed in no acute distress. He explains that he fell and broke his right hip approximately 7 weeks ago. He confirms this was repaired at [facility]. He completed multiple weeks of inpatient rehab after his discharge and was discharged to his Daughter's house approximately a week ago. He states that he had been doing well at his Daughter's. Eating 3 good meals a day but not being as active as he probably should be. He explains that he slipped in the bathroom last night when tripped over the carpet in front of the shower. He hit his BL arms on the toilet and shower. He did not hit his head or lose consciousness. He explains that he has had the fatima catheter since his admission at [facility] as he had issues with post- operative urinary retention. His daughter exchanged his fatima last night after his fall. He confirms he has been without pain since his fall last night. Today, he woke and was feeling fine. His son came to pick him up for his Urology appointment but he was not strong enough in the BL legs to get into the Son's SUV. He states that he has not had an issue getting into his Daughter's SUV recently. He denies recent fever, chills, new paresthesias, unilateral weakness, changes in vision, hearing, taste, and smell, chest pain, increased SOB, abd pain, nausea, vomiting, diarrhea, hematuria, melena. He explains that he is currently on a course of prednisone prescribed by our ED team approximately one week ago for a BL LE rash. He and his family confirm that the rash has been improving since he has been on the prednisone. He is a full code and wishes for his Children to make medical decisions for him if he cannot make them himself. I was able to call and speak with his Daughter/Primary Caregiver (Fatou Pearson [phone]) to obtain further history. She states that her father fell approximately 7-7.5 weeks ago and sustained a right hip fracture. This was repaired at [facility], he has been recovering at her house since. She confirms that he was diagnosed with Afib during his admission at [facility] and was started on Eliquis on discharge. She was unable to confirm his current medications when I called as she was not home but will provide a list later today. She states that the patient fell last night in the bathroom. He reported to her that he slipped on the tile while wearing socks. They were able to help him stand with the assistance of neighbors. They did not have him evaluated as he did not complain of pain and was able to ambulate. He has had a fatima miriam ter placed due to urinary retention. He was supposed to go to a Urology follow- up today for voiding trial. Today he was unable to get his legs into the family car due to weakness and soreness. Call [facility] who will fax over the DC summary from his last admission. Will place in his physcial chart Principal Diagnosis UTI Discharge Exam Constitutional: well-appearing, no acute distress HEENT: NCAT, no conjunctival injection CV: regular rhythm, no murmur appreciated, extremities well-perfused Resp: CTABL, no wheezes/rales/rhonchi appreciated, no increased work of breathing GI: soft, nondistended, nontender, BS normoactive MSK: no gross deformities appreciated Skin:+ erythematous macules LE B/L Neuro: alert, oriented, no focal neurologic deficit appreciated Discharge Data Allergies Allergy/AdvReac Type Severity Reaction Status Date / Time indomethacin AdvReac Intermediate LOWERED Verified 06/25/23 16:31 WHITE CELL COUNT meloxicam AdvReac Unknown CONTRINDICATED Verified 06/25/23 16:31 PER PT. metformin AdvReac Unknown pt unsure Verified 06/25/23 16:31 why Consultations 06/25/23 14:22 ED Decision to Admit Stat 06/25/23 15:49 Consult Dermatology Routine 06/27/23 11:42 Consult Urology Routine Hospital Course (1) Generalized weakness: Generalized weakness: -Increased weakness in the setting of recent rehab d/c after right hip fracture with acute UTI -Likely combination of deconditioning in addition to UTI - PT/OT recommend home with home health/family support vs rehab. Pt declines rehab. UTI (urinary tract infection): -Patient has required Fatima placement since his admission last month at [facility] for right hip fracture repair -Fatima was exchanged during admission - Urine grew pansensitive E Coli - Plan for total course of antibiotics of 7 days for complicated UTI. Will d/c with cefdinir. Urinary retention: -Continue flomax -Keep Fatima until appointment with urology on 07/11 Anemia: - Hbg= 9.4, normocytic - no recent baseline - Stable - Would repeat CBC with PCP at f/u in 1 week Fall: -No acute trauma on chest xray or xray of the right hip/pelvis Rash and nonspecific skin eruption: -Patient has a rash on the BL LE's which appears somewhat like a vasculitis -Was seen in the [facility] ED on 06/16 and started on a 10 day taper of prednisone -Patient and family think rash has been improving since he started the prednisone -Derm consulted; plan for 2 days of prednisone 20mg daily, then taper to prednisone 10mg daily x 5 days, then prednisone 10mg every other day. F/u with derm 2 weeks Afib: -Continue BID Eliquis (2.5mg based on age and creatine) Hypertension: -Continue home medications Diabetes mellitus, type 2: -Plan to resume home medications - Will be d/c on oral steroids, given good glycemic control no adjusts to home regimen for duration of steroids. He did well at home for the past week with higher steriod dosing. Chronic obstructive pulmonary disease: -Continue home breathing treatments CAD (coronary artery disease): -Continue Plavix (2) UTI (urinary tract infection): (3) Urinary retention: (4) Anemia: (5) Fall: (6) Rash and nonspecific skin eruption: (7) Afib: (8) Hypertension: (9) Diabetes mellitus, type 2: (10) Chronic obstructive pulmonary disease: (11) CAD (coronary artery disease): Total Time Total Time Spent Total Time Spent (In Minutes): See attending attestation Discharge Plan Discharge Items Patient Disposition: Home - Home Health Services Reason For Visit: GENERALIZED WEAKNESS, UTI Discharge Diagnosis: UTI Activity: Per Instructions section Non-emergency contact: Primary Care Provider Call non-emergency contact if: you have any medication questions and your symptoms worsen Follow-up/Referrals: Clay Payne MD [Physician] - (2 weeks ) Alen Vigil D.O. [Primary Care Provider] - Diet: Regular Addtl Attending Provider Instructions: You came in for increased weakness. We found that you had a UTI and have been treating you with antibiotics. We are planning to send you home on oral antibiotics. We sent a prescription for cefdinir to the pharmacy for you. You should take in twice a day for the next 5 days. Your next dose will be due at tomorrow evening and you should take in twice a day for the next 5 days. Dermatology saw you for the rash on your legs. They would like to extend your steroid taper. Starting tomorrow you should take 10mg for 5 days, followed by 10mg every other day until you are able to follow up with dermatology in 2 weeks. The dermatology office should reach out to you to get an appointment scheduled if you do not hear from them early next week, please give their office a call to make an appointment. The number is [phone]. Please keep you appointment with urology for 07/11. You should keep the catheter in place until this appointment. Pending Studies at Discharge: No Stand-Alone Forms: My [facility] [employer]unch a [employer]unch, Smoking Cessation Medications and DC Order Prescriptions: New cefdinir 300 mg capsule 300 mg PO BID 5 Days Qty: 10 0RF prednisone 10 mg tablet 10 mg PO DIRECTED Qty: 10 0RF Rx Instructions: see taper instructions; 10mg for 5 days, followed by 10mg every other day for 10 days Continued glipizide 10 mg Tablet 10 mg PO BID metoprolol succinate 100 mg Tablet Extended Release 24 Hr 100 mg PO QAM tamsulosin 0.4 mg Capsule 0.8 mg PO QAM allopurinol 300 mg Tablet 300 mg PO QAM albuterol sulfate 90 mcg/actuation Hfa Aerosol Inhaler 2 puff INHALATION Q4H PRN (Reason: Wheezing) Januvia 100 mg Tablet 100 mg PO QAM fluticasone furoate-vilanterol [Breo Ellipta] 200-25 mcg/dose blister with de vice 1 ea INHALATION DAILY atorvastatin 40 mg Tablet 40 mg PO QAM Qty: 30 1RF clopidogrel 75 mg Tablet 75 mg PO QAM Qty: 30 1RF repaglinide 0.5 mg tablet 0.5 mg PO BID Qty: 60 0RF Rx Instructions: Administer within 30 minutes of a meal or snack Eliquis 2.5 mg tablet 2.5 mg PO BID losartan 50 mg tablet 50 mg PO DAILY buspirone 5 mg tablet 2.5 mg PO BID famotidine 40 mg tablet 40 mg PO DAILYBB amlodipine 5 mg Tablet 5 mg PO DAILY lorazepam 1 mg Tablet 1 mg PO Q6H PRN (Reason: Anxiety) fluticasone propion-salmeterol [Advair Diskus] 100-50 mcg/dose Blister With Device 1 inh INHALATION BID colchicine 0.6 mg tablet 0.6 mg PO BID PRN (Reason: GOUT FLARES) Rx Instructions: TAKE UNTIL PAIN RELIEVED OR DIARRHEA/NAUSEA. fluticasone propionate 50 mcg/actuation [place],Suspension 2 spray INTRANASAL DAILY Rx Instructions: administer into each nostril testosterone 1 % (50 mg/5 gram) Gel In Packet 1 packet TRANSDERMAL DAILY Discontinued prednisone 20 mg tablet See Rx Instructions .ROUTE .COMPLEX Rx Instructions: STARTED 06/17/23 FOR 10 DAYS. Please take 40 MG-2 tablets by mouth daily on days 1 through 5 then please take 20 mg-1 tablet by mouth daily on days 6 through 10 Krames/Other Patient Handouts: Managing Type 2 Diabetes Admission Data Admit Date/Time: 06/26/23 10:29 Attending Provider: Dilip Velázquez Admit Provider: Alphonso Lopez Primary Care Provider: Alen Vigil Other Providers: Alphonso Lopez; Sheela Rick; Clay Payne; Travis Lopez; Rito Carey; Dilip King; Danielle Olivas; Elliott Gonsalez; Gretta Liu; Deedee Kay; Lalit Ko; Shama Martinez; Brett Lowe; Greg Pierson Other Interventions: Discharge Summary Assessment (RN) Last Done: 06/27/23 15:43 Supervising Physician Co-Signing Physician Notes Attending attestation Pt seen and examined in concert with Dr. Donohue. In agreement with the documented findings as noted in the resident documentation with any exceptions or additions as noted here. Resting comfortably in chair at bedside without new complaint - interested in re moval of catheter prior to discharge but with concerns as noted will leave in place. On examination, S1/S2 nl RRR no MCG. CTAB. Abd NT/ND BS+ve VS: 128/62, 58, 16, 36.4C, 96 RA Data: WBC 5.21, HGb 9.4, Cr 1.82 Generalized weakness - PT/OT consult appreciated - home with PT as recommended UTI with urinary retention with fatima in place on admission - fatima changed during hospital course, complete 7 day course of abx for complicated UTI Else see resident documentation as noted. Total attending physician time spent with this patient's care on the day of discharge: 40 min Resident Activity Tracking Resident Involvement: Resident Care Provided Care Provided: Adult Hospital Medicine
[2023-06-28] MEDS ORDERED: predniSONE 10 MG TABLET PO SCH (09:00)
[2023-06-28] MEDS ORDERED: LANTUS PER UNIT CHARGE SC SCH (09:00)
== END 2023-06-27 17:36 | disposition home health service (06) | DRG 700 ==
LOC: EDINP 09:22 → ED 09:22 → SUATTDRO 15:24 → 3N 17:49

== ENCOUNTER 2023-07-19 09:31 | Inpatient (IN) ==
[2023-07-19] MEDS ORDERED: methylPREDNISolone 125 MG/2 ML VIAL IV STA (09:55)
[2023-07-19] MEDS ORDERED: ALBUT/IPRATROP 3MG/0.5MG NEB 3 ML VIAL NEB STA (09:55)
--- NOTE | 2023-07-19 10:02 | Emergency Department Note ---
History of Present Illness General Chief complaint: Shortness of Breath/Dyspnea Stated complaint: SOB Time Seen by Provider: 07/19/23 09:51 History of Present Illness 88-year-old male presents emergency department with complaint of 2-week history of increased shortness of breath cough cold congestion in the morning. Patient is on 2 L of oxygen at night for COPD. Patient states worsening leg edema. Patient states increased shortness of breath over the past day. Patient denies any hemoptysis or fever. There are no other mitigating or alleviating factors Home Medications Medication Instructions Recorded Confirmed Type albuterol sulfate 90 mcg/actuation 2 puff inhalation Q4H PRN Wheezing 06/12/18 07/19/23 History aerosol inhaler allopurinol 300 mg tablet 300 mg PO QAM 06/12/18 07/19/23 History glipizide 10 mg tablet 10 mg PO BID 06/12/18 07/19/23 History metoprolol succinate 100 mg 100 mg PO QAM 06/12/18 07/19/23 History tablet,extended release 24 hr sitagliptin phosphate 100 mg 100 mg PO QAM 06/12/18 07/19/23 History tablet (Januvia) tamsulosin 0.4 mg capsule 0.8 mg PO QAM 06/12/18 07/19/23 History fluticasone furoate 200 1 ea inhalation DAILY 06/09/19 07/19/23 History mcg-vilanterol 25 mcg/dose inhalation powder (Breo Ellipta) atorvastatin 40 mg tablet 40 mg PO QAM #30 tabs 06/11/19 07/19/23 Rx clopidogrel 75 mg tablet 75 mg PO QAM #30 tabs 06/11/19 07/19/23 Rx repaglinide 0.5 mg tablet 0.5 mg PO BID #60 tabs 06/11/19 07/19/23 Rx amlodipine 5 mg tablet 5 mg PO DAILY 06/25/23 07/19/23 History apixaban 2.5 mg tablet (Eliquis) 2.5 mg PO BID 06/25/23 07/19/23 History buspirone 5 mg tablet 2.5 mg PO BID 06/25/23 07/19/23 History colchicine 0.6 mg tablet 0.6 mg PO BID PRN GOUT FLARES 06/25/23 07/19/23 History famotidine 40 mg tablet 40 mg PO DAILYBB 06/25/23 07/19/23 History fluticasone propionate 50 2 spray intranasal DAILY 06/25/23 07/19/23 History mcg/actuation nasal spray,suspension lorazepam 1 mg tablet 1 mg PO Q6H PRN Anxiety 06/25/23 07/19/23 History losartan 50 mg tablet 50 mg PO DAILY 06/25/23 07/19/23 History Allergies Allergy/AdvReac Type Severity Reaction Status Date / Time indomethacin AdvReac Intermediate LOWERED Verified 06/25/23 16:31 WHITE CELL COUNT meloxicam AdvReac Unknown CONTRINDICATED Verified 06/25/23 16:31 PER PT. metformin AdvReac Unknown pt unsure Verified 06/25/23 16:31 why Past Med/Surg History Medical History Cutaneous vasculitis Urinary retention CAD (coronary artery disease) s/p stent to RCA x 1 2009 Neuropathy LEFT LOWER LEG/FOOT. PT STATES HE HAS DROP FOOT. BPH (benign prostatic hyperplasia) Osteoarthritis Diabetes mellitus, type 2 Chronic obstructive pulmonary disease very rare albuterol use. Daily Advair, stable. Sleep apnea PT HAS CPAP DEVICE, DOES NOT CURRENTLY WEAR. Transient ischemic attack (TIA) JANUARY 2018. NO RESIDUAL. Hypertension Hyperlipidemia Surgical History History of carotid endarterectomy LEFT. 2017 in [place] History of tonsillectomy History of colonoscopy History of cholecystectomy Fusion of spine LUMBAR History of cardiac cath 2009. STENT X1. [facility] Family History Other Family history non-contributory Social History Smoking Status: Never smoker Cigarettes Per Day: H/O up to 2ppd; Second Hand Exposure: No; Do You Dip or Chew Tobacco: No; Hx Alcohol Use: No Hx Substance Use: No Preferred Language: Hebrew Communication Ability: Effective Urban Sociologist Required: No Beliefs That Will Affect Care: None Current Living Situation: Family Feels Safe at Home: Yes Assistive Devices: Cane and Walker Review of Systems A total of 10 systems reviewed and were otherwise negative Constitutional: + body aches; no fever Respiratory: + cough and + dyspnea Physical Exam Vital Signs Vital Signs - 24 hr 07/19/23 09:44 07/19/23 10:40 07/19/23 10:59 Temperature 36.9 C Temperature Source Oral Pulse Rate 71 69 Pulse Rate [Apical] 67 Respiratory Rate 28 H 24 Respiratory Depth Blood Pressure 125/67 Blood Pressure [Right Arm] 134/74 Blood Pressure Mean 86 Blood Pressure Mean [Right Arm] 94 Blood Pressure Position Sitting Blood Pressure Position [Right Arm] Lying Pulse Oximetry 94 91 Oxygen Delivery Method Room Air Room Air Oxygen Flow Rate Sepsis Recent Fever Within 48 Hours No Sepsis New/Unexplained Change in Mental Status No Sepsis Action Taken by Nursing No Action Required Oxygen Flow Rate - Titration Pulse Oximetry Post Tiitration 07/19/23 10:59 07/19/23 11:12 07/19/23 11:22 Temperature Temperature Source Pulse Rate 68 Pulse Rate [Apical] 67 Respiratory Rate 24 24 Respiratory Depth Normal Blood Pressure Blood Pressure [Right Arm] 138/70 Blood Pressure Mean Blood Pressure Mean [Right Arm] 92 Blood Pressure Position Blood Pressure Position [Right Arm] Sitting Pulse Oximetry 91 87 L 95 Oxygen Delivery Method Room Air Room Air Nasal Cannula Oxygen Flow Rate 0 2 Sepsis Recent Fever Within 48 Hours Sepsis New/Unexplained Change in Mental Status Sepsis Action Taken by Nursing Oxygen Flow Rate - Titration 2 Pulse Oximetry Post Tiitration 92 GENERAL: Patient is awake alert in no acute distress patient is resting comfortably and showing no signs of anxiety EYES: The conjunctivae are clear. The pupils are round and reactive. EARS, NOSE, MOUTH AND THROAT: The nose is without any evidence of any deformity. Mucous membranes are moist. Tongue is midline. NECK: The neck is nontender and supple. RESPIRATORY: Increased work of breathing, speaking in full sentences, increased respiratory rate, rhonchi CARDIOVASCULAR: Regular rate and rhythm noted there no murmurs rubs or gallops normal S1 normal S2. GASTROINTESTINAL: The abdomen is soft. Abdomen is nontender. BACK: No midline tenderness or or step-off noted range of motion in flexion extension as well as rotation no signs of muscle spasm noted MUSCULOSKELETAL/EXTREMITIES: There is no evidence of gross deformity full range of motion is noted in the hips and shoulders. Bilateral lower extremity edema that is pitting in nature SKIN: There is no obvious evidence of any rash. There are no petechiae, pallor or cyanosis noted. NEUROLOGIC: Patient is awake alert and oriented x3 strength is symmetric Course Reevaluation(s) Reevaluation #1: Patient was started on oxygen, given a DuoNeb, given steroids, given IV Lasix and Rocephin Zithromax. He is resting in no distress no significant respiratory distress Time: 11:52 Consultations Consultation #1: Case was discussed with the [facility] hospitalist for admission Time: :52 Administered Medications Azithromycin 500 mg/ Dextrose 255 mls @ 125 mls/hr IV ONE ONE Stop: 07/19/23 12:37 Last Admin: 07/19/23 11:23 Dose: 125 mls/hr Documented By: HOWARD Discontinued Medications Albuterol (Albut/Ipratrop 3mg/0.5mg Neb 3 Ml Vial) 3 ml NEB NOW STA; Protocol Stop: 07/19/23 09:56 Last Admin: 07/19/23 10:01 Dose: 3 ml Documented By: MADIE Furosemide (Furosemide 40 Mg/4 Ml Vial) 40 mg IV ONE ONE Stop: 07/19/23 11:01 Last Admin: 07/19/23 11:11 Dose: 40 mg Documented By: HOWARD Ceftriaxone Sodium (Rocephin) 2,000 mg in 50 mls @ 100 mls/hr IV NOW STA Stop: 07/19/23 11:04 Last Infusion: 07/19/23 11:24 Dose: Infused Documented By: Admin: 07/19/23 10:53 Dose: 100 mls/hr Documented By: KAYLIE Methylprednisolone (Methylprednisolone 125 Mg/2 Ml Vial) 125 mg IV NOW STA Stop: 07/19/23 09:56 Last Admin: 07/19/23 10:11 Dose: 125 mg Documented By: MADIE Medical Decision Making Medical Records Attestation: I reviewed the patient's medical records. Home Medications Current Medication List: was personally reviewed by me Laboratory Data Attestation: I reviewed the patient's lab results. Lab results interpreted by me patient has mild anemia that is chronic in nature, and elevated creatinine, elevated BNP 07/19/23 10:05 07/19/23 10:05 Lab Results 07/19/23 Range/Units 10:05 WBC 5.22 (4.8-10.8) K/ul RBC 3.40 L (4.70-6.10) M/uL Hgb 9.2 L (14.0-18.0) g/dl Hct 31.1 L (42.0-52.0) % MCV 91.5 (80.0-100.0) fL MCH 27.1 (25.0-34.0) pg MCHC 29.6 L (32.0-36.0) g/dL RDW Std Deviation 57.3 H (36.4-46.3) fL RDW Coeff of Reji 17.1 H (11.5-14.5) % Plt Count 224 (130-400) K/uL MPV 9.2 L (9.4-12.4) fL Immature Gran % (Auto) 0.6 % Neut % (Auto) 66.5 % Lymph % (Auto) 22.0 % Garrett % (Auto) 8.2 % Eos % (Auto) 2.5 % Baso % (Auto) 0.2 % Neut # (Auto) 3.47 (1.40-6.50) K/uL Lymph # (Auto) 1.15 L (1.20-3.40) K/uL Garrett # (Auto) 0.43 (0.11-0.59) K/uL Eos # (Auto) 0.13 (0.00-0.50) K/uL Baso # (Auto) 0.01 (0.00-0.20) K/uL Immature Gran # (Auto) 0.03 (0.01-0.20) K/uL Sodium 137 (136-145) mmol/L Potassium 4.6 (3.5-5.1) mmol/L Chloride 106 (98-107) mmol/L Carbon Dioxide 26 (21-32) mmol/L Anion Gap 5 (3-11) BUN 35 H (6-23) mg/dl Creatinine 1.73 H (0.6-1.4) mg/dl Est Cr Clr Drug Dosing 36.2 ml/min Est GFR ( Amer) 40.3 ml/min Est GFR (Non-Af Amer) 34.7 ml/min BUN/Creatinine Ratio 20.2 H (10-20) Glucose 114 H (70-99(Fasting)) mg/dl Lactate 1.0 (0.4-2.0) mmol/L Calcium 8.8 (8.6-10.3) mg/dl Magnesium 1.5 L (1.7-2.4) mg/dl Total Bilirubin 0.8 (0.2-1.0) mg/dl Direct Bilirubin 0.2 (0-0.2) mg/dl AST 11 L (13-39) U/L ALT 13 (7-52) U/L Alkaline Phosphatase 79 (34-104) U/L Troponin I High Sens 7.4 (0-20) pg/ml B-Natriuretic Peptide 344 H (0-100) pg/ml Total Protein 6.4 (6.0-8.3) gm/dl Albumin 3.3 L (3.4-5.0) gm/dl Procalcitonin 0.08 (0-0.5) ng/ml SARS-CoV-2 (PCR) NEGATIVE (Negative) Influenza Type A (PCR) Negative (Neg) Influenza Type B (PCR) Negative (Neg) RSV (RT-PCR) Negative (Neg) Imaging Data Attestation: I personally reviewed and interpreted this imaging study as follows: My Impression: Chest x-ray interpreted by large bleb left upper lobe and bilateral lower lobe infiltrates Radiologist's Impression: Chest X-Ray 07/19/23 09:51 XR chest 1V portable CLINICAL HISTORY: Sepsis. COMPARISON STUDY: Chest radiographs June 15, 2018 and June 25, 2023. FINDINGS: Large left lung bulla is unchanged. Clustered calcifications within the left mid hemithorax are also unchanged. There is no pneumothorax or pleural effusion. Cardiomediastinal silhouette is stable. Bibasilar opacities are new since prior exam. No evidence for pulmonary edema. IMPRESSION: 1. Interval development of bibasilar airspace opacities suggestive of pneumonia or aspiration pneumonitis. Post treatment radiographs to ensure resolution are recommended. 2. No change in a large left lung bulla. ACT 112: Negative or not required by law. Electronically signed by: Chano Tyler M.D. 07/19/2023 10:31 AM ECG Data Attestation: I personally reviewed and interpreted this ECG as follows: MDM Narrative Medical decision making differential diagnosis includes COPD exacerbation, CHF, pneumonia, upper respiratory tract infection, anemia, Plan is to check labs, EKG, chest x-ray Family is at bedside states that he has had increased work of breathing and shortness of breath for the past 2 weeks he is postoperative hip surgery 2 months ago Patient was treated by for suspected pneumonia and CHF. Patient will be admitted to the hospital. Patient is not septic shock and I did not give any IV fluids due to the fact the patient could be in CHF on chest x-ray and clinical exam. [facility] Pneumonia, CHF (congestive heart failure) Discharge Plan Visit Data Chief Complaint: Shortness of Breath/Dyspnea Stated Complaint: SOB ED Provider: Rito Hardwick Discharge Problem: Pneumonia, CHF (congestive heart failure) Patient Disposition: Admitted As Inpatient Forms Stand Alone Forms: My [facility] Prescriptions Prescriptions: No Action glipizide 10 mg Tablet 10 mg PO BID metoprolol succinate 100 mg Tablet Extended Release 24 Hr 100 mg PO QAM tamsulosin 0.4 mg Capsule 0.8 mg PO QAM allopurinol 300 mg Tablet 300 mg PO QAM albuterol sulfate 90 mcg/actuation Hfa Aerosol Inhaler 2 puff INHALATION Q4H PRN (Reason: Wheezing) Januvia 100 mg Tablet 100 mg PO QAM fluticasone furoate-vilanterol [Breo Ellipta] 200-25 mcg/dose blister with device 1 ea INHALATION DAILY atorvastatin 40 mg Tablet 40 mg PO QAM Qty: 30 1RF clopidogrel 75 mg Tablet 75 mg PO QAM Qty: 30 1RF repaglinide 0.5 mg tablet 0.5 mg PO BID Qty: 60 0RF Rx Instructions: Administer within 30 minutes of a meal or snack Eliquis 2.5 mg tablet 2.5 mg PO BID losartan 50 mg tablet 50 mg PO DAILY buspirone 5 mg tablet 2.5 mg PO BID famotidine 40 mg tablet 40 mg PO DAILYBB amlodipine 5 mg Tablet 5 mg PO DAILY lorazepam 1 mg Tablet 1 mg PO Q6H PRN (Reason: Anxiety) colchicine 0.6 mg tablet 0.6 mg PO BID PRN (Reason: GOUT FLARES) Rx Instructions: TAKE UNTIL PAIN RELIEVED OR DIARRHEA/NAUSEA. fluticasone propionate 50 mcg/actuation [place],Suspension 2 spray INTRANASAL DAILY Rx Instructions: administer into each nostril Referrals Referrals: Alen Vigil D.O. [Primary Care Provider] -
[2023-07-19 10:24] LABS: Basophils # (auto) 0.01 K/uL (0.00-0.20); Basophils % (auto) 0.2 %; Eosinophils # (auto) 0.13 K/uL (0.00-0.50); Eosinophils % (auto) 2.5 %; Hematocrit (blood only) 31.1 % (42.0-52.0); Hemoglobin 9.2 g/dl (14.0-18.0); Immature Granulocytes # (auto) 0.03 K/uL (0.01-0.20); Immature Granulocytes % (auto) 0.6 %; Lymphocytes # (auto) 1.15 K/uL (1.20-3.40); Mean Corpuscular Hemoglobin 27.1 pg (25.0-34.0); Mean Corpuscular Hgb Conc 29.6 g/dL (32.0-36.0); Mean Corpuscular Volume 91.5 fL (80.0-100.0); Mean Platelet Volume 9.2 fL (9.4-12.4); Monocytes # (auto) 0.43 K/uL (0.11-0.59); Monocytes % (auto) 8.2 %; Neutrophils # (auto) 3.47 K/uL (1.40-6.50); Neutrophils % (auto) 66.5 %; Platelet Count 224 K/uL (130-400); RDW Coefficient of Variation 17.1 % (11.5-14.5); RDW Standard Deviation 57.3 fL (36.4-46.3); White Blood Count 5.22 K/ul (4.8-10.8)
--- NOTE | 2023-07-19 10:33 | XRay Report ---
XR chest 1V portable CLINICAL HISTORY: Sepsis. COMPARISON STUDY: Chest radiographs June 15, 2018 and June 25, 2023. FINDINGS: Large left lung bulla is unchanged. Clustered calcifications within the left mid hemithorax are also unchanged. There is no pneumothorax or pleural effusion. Cardiomediastinal silhouette is st able. Bibasilar opacities are new since prior exam. No evidence for pulmonary edema. IMPRESSION: 1. Interval development of bibasilar airspace opacities suggestive of pneumonia or aspiration pneumon itis. Post treatment radiographs to ensure resolution are recommended. 2. No change in a large left lung bulla. ACT 112: Negative or not required by law. Electronically signed by: Chano Tyler M.D. 07/19/2023 10:31 AM
[2023-07-19] MEDS ORDERED: AZITHROMYCIN 500 MG in DEXTROSE 5% 250 ML IV ONE (10:35)
[2023-07-19] MEDS ORDERED: cefTRIAXone SODIUM 2,000 MG/50 ML BAG IV STA (10:35)
[2023-07-19 10:43] LABS: Albumin Level 3.3 gm/dl (3.4-5.0); BUN Creatinine Ratio 20.2 (10-20); Bilirubin Direct 0.2 mg/dl (0-0.2); Bilirubin,Total 0.8 mg/dl (0.2-1.0); Calcium 8.8 mg/dl (8.6-10.3); Creatinine Clr Calc Pharmacy 36.2 ml/min; Est GFR (African American) 40.3 ml/min; Est GFR (Non-African American) 34.7 ml/min; Magnesium 1.5 mg/dl (1.7-2.4); Potassium 4.6 mmol/L (3.5-5.1); Total Protein 6.4 gm/dl (6.0-8.3)
[2023-07-19 10:49] LABS: Troponin I High Sensitivity 7.4 pg/ml (0-20)
[2023-07-19 11:00] LABS: Influenza A virus by PCR Negative (Neg); Influenza B virus by PCR Negative (Neg); RSV by PCR Negative (Neg); SARS CoV2 RNA(COVID-19) Ceph NEGATIVE (Negative)
[2023-07-19] MEDS ORDERED: FUROSEMIDE 40 MG/4 ML VIAL IV ONE (11:00)
--- NOTE | 2023-07-19 11:35 | History & Physical Report ---
Date of Service July 19, 2023 Assessment & Plan (1) Pneumonia: Plan: Worsening GRAF, wheezing x 2 weeks No leukocytosis; afebrile COVID, flu, RSV negative Procalcitonin negative CXR revealed bibasilar airspace opacities suggestive of PNA or aspiration pneumonitis Azithromycin and Rocephin Supplemental oxygen as needed to maintain SpO2 >94% Patient is normally on 2L NC at night; continue while inpatient DuoNeb QIDR for wheezing Patient received Solu-Medrol 125 mg IV in the ED Solu-Medrol 40 mg IV QAM Continuous telemetry monitoring A.m. CBC, BMP, mag (2) CHF (congestive heart failure): Plan: Patient is not on home diuretics; + 2 pitting edema in the LEs B/L BNP elevated at 344 on arrival Echo ordered, pending Lasix 40 mg IV QAM while inpatient May need to discuss outpatient Lasix (pending echo) upon discharge (3) Weakness: Plan: Patient reports recurrent falls; LE edema Ambulates with a walker at baseline PT/OT consulted (4) Afib: Plan: Chronic; stable Continue Eliquis Continue metoprolol (5) Hypertension, uncontrolled: Plan: Continue losartan, metoprolol (6) Hypomagnesemia: Plan: Mag 1.5 on arrival Magnesium sulfate IV x 2 Recheck a.m. mag (7) Diabetes mellitus, type 2: Plan: Last A1c 7.8% on 06/26/2023; no need to repeat Glucose 114 on arrival Hold Januvia, glipizide, Repaglinide Recommend Lantus 20u BID SSI; with goal BSG range [id number]/dL, CF 15, carb ratio 5 T2DM diet BSG [facility] Pharmacy glycemic consult, patient will be on steroids while inpatient Adjust regimen as needed (8) BPH (benign prostatic hyperplasia): Plan: Continue tamsulosin (9) Gout: Plan: Continue allopurinol Continue colchicine as needed Plan [facility] Full code T2DM, AHA diet VTE PPx: On Eliquis History of Present Illness Chief Complaint: SOB/dyspnea Primary Care Provider: Alen Vigil Rao is an 88-year-old male with PMH of BPH, CAD, T2DM, COPD, HLD, HTN, OA, sleep apnea, A-fib, and carotid stenosis. He presented for worsening GRAF and wheezing x 2 weeks. He reports that he has mainly RGAF, but not SOB at rest. Worse with laying supine. He has been using his albuterol inhaler at home, but is only been helping minimally. He uses a walker at baseline, and reports that he is had a couple falls. He uses at home oxygen 2L NC at night. No CPAP. No sick contacts. Of note, the patient fell and broke his hip in April, and was at a assisted home/rehab for an extended period of time. Patient reports that he took his morning medications today, and that his daughter helps to manage his medications. He also has some home nursing care. Patient quit smoking in 1963. Vital stable at time of admission; 95% SpO2 on 2 LNC. ED course: Azithromycin 500 mg IV DuoNeb 3 mL Solu-Medrol 125 mg IV Rocephin 2000 mg IV Lasix 40 mg IV ROS: Patient endorses dizziness, lightheaded (with standing), chest discomfort, inability to take deep breaths, and wheezing. Patient denies fever, chills, nightsweats, AGUAYO, chest pain, pleuritic CP, cough, abdominal pain, N/V/D, or numbness/tingling going down legs or arms. Allergies Allergy/AdvReac Type Severity Reaction Status Date / Time indomethacin AdvReac Intermediate LOWERED Verified 06/25/23 16:31 WHITE CELL COUNT meloxicam AdvReac Unknown CONTRINDICATED Verified 06/25/23 16:31 PER PT. metformin AdvReac Unknown pt unsure Verified 06/25/23 16:31 why Home Medications Medication Instructions Recorded Confirmed Type albuterol sulfate 90 mcg/actuation 2 puff inhalation Q4H PRN Wheezing 06/12/18 07/19/23 History aerosol inhaler allopurinol 300 mg tablet 300 mg PO QAM 06/12/18 07/19/23 History glipizide 10 mg tablet 10 mg PO BID 06/12/18 07/19/23 History metoprolol succinate 100 mg 100 mg PO QAM 06/12/18 07/19/23 History tablet,extended release 24 hr sitagliptin phosphate 100 mg 100 mg PO QAM 06/12/18 07/19/23 History tablet (Januvia) tamsulosin 0.4 mg capsule 0.8 mg PO QAM 06/12/18 07/19/23 History fluticasone furoate 200 1 ea inhalation DAILY 06/09/19 07/19/23 History mcg-vilanterol 25 mcg/dose inhalation powder (Breo Ellipta) atorvastatin 40 mg tablet 40 mg PO QAM #30 tabs 06/11/19 07/19/23 Rx clopidogrel 75 mg tablet 75 mg PO QAM #30 tabs 06/11/19 07/19/23 Rx repaglinide 0.5 mg tablet 0.5 mg PO BID #60 tabs 06/11/19 07/19/23 Rx amlodipine 5 mg tablet 5 mg PO DAILY 06/25/23 07/19/23 History apixaban 2.5 mg tablet (Eliquis) 2.5 mg PO BID 06/25/23 07/19/23 History buspirone 5 mg tablet 2.5 mg PO BID 06/25/23 07/19/23 History colchicine 0.6 mg tablet 0.6 mg PO BID PRN GOUT FLARES 06/25/23 07/19/23 History famotidine 40 mg tablet 40 mg PO DAILYBB 06/25/23 07/19/23 History fluticasone propionate 50 2 spray intranasal DAILY 06/25/23 07/19/23 History mcg/actuation nasal spray,suspension lorazepam 1 mg tablet 1 mg PO Q6H PRN Anxiety 06/25/23 07/19/23 History losartan 50 mg tablet 50 mg PO DAILY 06/25/23 07/19/23 History Past Med/Surg History Medical History (Updated 07/19/23 @ 12:35 by Gregor Swartz PA-C) Gout Cutaneous vasculitis Urinary retention CAD (coronary artery disease) s/p stent to RCA x 1 2009 Neuropathy LEFT LOWER LEG/FOOT. PT STATES HE HAS DROP FOOT. BPH (benign prostatic hyperplasia) Osteoarthritis Diabetes mellitus, type 2 Chronic obstructive pulmonary disease very rare albuterol use. Daily Advair, stable. Sleep apnea PT HAS CPAP DEVICE, DOES NOT CURRENTLY WEAR. Transient ischemic attack (TIA) JANUARY 2018. NO RESIDUAL. Hypertension Hyperlipidemia Surgical History History of carotid endarterectomy LEFT. 2018 in [place] History of tonsillectomy History of colonoscopy History of cholecystectomy Fusion of spine LUMBAR History of cardiac cath 2009. STENT X1. [facility] Family History Other Family history non-contributory Social History Smoking Status: Never smoker Cigarettes Per Day: H/O up to 2ppd; Second Hand Exposure: No; Do You Dip or Chew Tobacco: No; Hx Alcohol Use: No Hx Substance Use: No Preferred Language: Tristanian Communication Ability: Effective Compensation Analyst Required: No Beliefs That Will Affect Care: None Current Living Situation: Family Feels Safe at Home: Yes Assistive Devices: Cane and Walker Review of Systems Review of Systems: See HPI above Physical Exam Physical Exam: General: no acute distress; pleasant affect; non-toxic appearing; well- nourished; cooperative; SpO2 95% on 2L NC HEENT: normocephalic, atraumatic; no scleral icterus; PERRLA w/ EOMs intact; moist mucus membrane; vision and hearing grossly intact Neck: supple; negative for JVD; no lymphadenopathy; trachea midline Skin: warm, dry without signs of tenting; no cyanosis; no rashes, bruising, lesions, or erythema noted CV: chest wall NTP; RRR; S1/S2 normal; no murmurs/rubs/gallops; pulses intact and symmetric at radial, DP, and PT Lungs: no acute respiratory distress; symmetrical chest wall expansion; expiratory wheezes present across all lung mcbride bilaterally ABD: Soft, NTP; BS present; no rebound/guarding; mild distention due to patient's body habitus MSK: no tics or fasciculations; +2 pitting edema in the LEs B/L extending up to the knee, nonerythematous Neuro: A&Ox3; normal mood and affect; fluent speech; no focal deficits; patient endorses neuropathy in the left foot, diminished sensation Results & Data Results & Data Vital Signs (Past 12 Hours) Vital Signs Temp Pulse Pulse Resp BP BP Pulse Ox 07/19/23 11:22 67 24 138/70 95 07/19/23 11:12 87 L 07/19/23 10:59 68 24 91 07/19/23 10:59 67 24 134/74 91 07/19/23 10:40 69 07/19/23 09:44 36.9 C 71 28 H 125/67 94 O2 Del Method O2 Flow Rate 07/19/23 11:22 Nasal Cannula 2 07/19/23 11:12 Room Air 0 07/19/23 10:59 Room Air 07/19/23 10:59 Room Air 07/19/23 10:40 07/19/23 09:44 Room Air Laboratory Results Abnormal lab results 07/19/23 Range/Units 10:05 RBC 3.40 L (4.70-6.10) M/uL Hgb 9.2 L (14.0-18.0) g/dl Hct 31.1 L (42.0-52.0) % MCHC 29.6 L (32.0-36.0) g/dL RDW Std Deviation 57.3 H (36.4-46.3) fL RDW Coeff of Reji 17.1 H (11.5-14.5) % MPV 9.2 L (9.4-12.4) fL Lymph # (Auto) 1.15 L (1.20-3.40) K/uL BUN 35 H (6-23) mg/dl Creatinine 1.73 H (0.6-1.4) mg/dl BUN/Creatinine Ratio 20.2 H (10-20) Glucose 114 H (70-99(Fasting)) mg/dl Magnesium 1.5 L (1.7-2.4) mg/dl AST 11 L (13-39) U/L B-Natriuretic Peptide 344 H (0-100) pg/ml Albumin 3.3 L (3.4-5.0) gm/dl Diagnostic Findings Chest X-Ray 07/19/23 09:51 XR chest 1V portable CLINICAL HISTORY: Sepsis. COMPARISON STUDY: Chest radiographs June 15, 2018 and June 25, 2023. FINDINGS: Large left lung bulla is unchanged. Clustered calcifications within the left mid hemithorax are also unchanged. There is no pneumothorax or pleural effusion. Cardiomediastinal silhouette is stable. Bibasilar opacities are new since prior exam. No evidence for pulmonary edema. IMPRESSION: 1. Interval development of bibasilar airspace opacities suggestive of pneumonia or aspiration pneumonitis. Post treatment radiographs to ensure resolution are recommended. 2. No change in a large left lung bulla. ACT 112: Negative or not required by law. Electronically signed by: Chano Tyler M.D. 07/19/2023 10:31 AM Code Status & VTE Plan Code Status Full code VTE Prophylaxis Plan VTE Prophylaxis will be ordered: Yes Supervising Physician Co-Signing Physician Notes Patient seen and examined, chart reviewed, case discussed with Gregor Swartz PA-C and I agree with the assessment and plan as above except as otherwise noted Labs and images reviewed 88-year-old male with past medical history of CHF, UTI, falls, A-fib, COPD, CAD, BPH who presents with shortness of breath and wheezing for 2 days which has not improved with rest and albuterol. Patient is on 2 L of nasal cannula at night normally, has been using 2 L consistently but remains with shortness of breath worsened with exertion. No chest pain or chest pressure. He has no leukocytosis, creatinine is near normal baseline of 1.51.8 (1.73 on admission), lactate is not elevated, BNP is mildly elevated at 344. Procalcitonin is negative. Quad screen is negative. Chest x-ray shows interval bibasilar airspace opacities suspicious for aspiration versus pneumonia. With history of COPD agree with treatment for exacerbation and coverage of underlying potential pneumonia with Rocephin/azithromycin, steroids continued daily; patient also has signs of fluid overload with elevated BNP and pitting edema --> agree w/ lasix tx for concurrent volume overload. Mg repleted and trended. Agree with assessment and management above./ PG Care Time/CCT Total # of Minutes Spent Total Time Spent with Patient: Total time spent is greater than 50% in coordination of care (as documented) at patient's floor/unit and/or counseling patient: C[place] [address] INT INP/OBS CARE 2/55MIN Patient Type Established History Comprehensive Exam Comprehensive Medical Decision Making Moderate Complexity Diagnoses Pneumonia J18.9 CHF (congestive heart failure) I50.9 Weakness R53.1 Afib I48.91 Hypertension, uncontrolled I10 Hypomagnesemia E83.42 Diabetes mellitus, type 2 E11.9 BPH (benign prostatic hyperplasia) N40.0 Gout M10.9
[2023-07-19] MEDS ORDERED: LORazepam 1 MG TAB PO PRN (13:46)
[2023-07-19] MEDS ORDERED: DEXTROSE 50% 50 ML SYRINGE IV PRN (13:46)
[2023-07-19] MEDS ORDERED: PHARMACY GLYCEMIC MGMT CONSULT PRN (13:46)
[2023-07-19] MEDS ORDERED: ACETAMINOPHEN 325 MG TAB PO PRN (13:46)
[2023-07-19] MEDS ORDERED: COLCHICINE 0.6 MG TAB PO PRN (13:46)
[2023-07-19] MEDS ORDERED: GLUCOSE 10 TAB/TUBE PO PRN (13:46)
[2023-07-19] MEDS ORDERED: GLUCAGON FOR INJ 1 MG VIAL SQ PRN (13:46)
[2023-07-19] MEDS ORDERED: CARBOHYDRATES FOR HYPOGLYCEMIA PO PRN (13:46)
[2023-07-19] MEDS ORDERED: GLUCOSE 40% GEL 15 GM TUBE PO PRN (13:46)
[2023-07-19] MEDS: MAGNESIUM SULFATE / D5W 1 GM/100 ML BAG IV SCH ×2 (14:25→16:23)
--- NOTE | 2023-07-19 14:37 | Pharmacy Report ---
Pharmacy Glycemic Short Note 2 - Date of Service July 19, 2023 - Glycemic Short BSG Results (Last 24 hours): 07/19/23 10:05 Glucose 114 H OUTPATIENT ANTIDIABETIC REGIMEN: * Glipizide 10 mg PO BID * Januvia 100mg PO Daily * Repaglinide 0.5mg PO BID * A1c 7.8% (06/26/23) ASSESSMENT: * 88 yo male admitted with worsening pneumonia, given Solu-Medrol 125mg IV x1 in ED, then 40mg IV daily ordered to start tomorrow, also IV antibiotics. * Patient known to pharmacy glycemic service from earlier this month, was on prednisone at that time. Will begin similar insulin regimen, higher dosing for stronger steroids, and titrate to goal BSG. PLAN FOR INPATIENT GLYCEMIC CONTROL: * Hold outpatient oral diabetes medications * Basal insulin * Lantus 20 units SQ x 1 dose now, 10 units at HS for BSG > 180mg/dl, then reassess in AM * Bolus insulin * NovoLog per scale ACHS or Q6hrs while NPO * Goal Range: Low 110 mg/dL - High 140 mg/dL * Correction Factor: 15 mg/dL/unit * Nutritional / Prandial insulin per carb ratio of 1 unit per 5 grams CHO consumed
[2023-07-19] MEDS ORDERED: LANTUS PER UNIT CHARGE SQ ONE ×2 (15:00→21:00)
[2023-07-19] MEDS: ALBUT/IPRATROP 3MG/0.5MG NEB 3 ML VIAL NEB SCH ×2 (15:23→19:50)
--- NOTE | 2023-07-19 17:47 | XCELERA ---
[id number]
[2023-07-19] MEDS: INSULIN ASPART PER UNIT CHARGE SC SCH ×2 (18:03→21:35)
[2023-07-19] MEDS: busPIRone 5 MG TAB PO SCH (21:32)
[2023-07-19] MEDS: APIXABAN 2.5 MG TAB PO SCH (21:34)
[2023-07-20] MEDS: FAMOTIDINE 40 MG TABLET PO SCH (06:03)
[2023-07-20 07:15] LABS: Hematocrit (blood only) 26.3 % (42.0-52.0); Hemoglobin 8.4 g/dl (14.0-18.0); Immature Granulocytes # (auto) 0.03 K/uL (0.01-0.20); Immature Granulocytes % (auto) 0.7 %; Lymphocytes # (auto) 0.71 K/uL (1.20-3.40); Lymphocytes % (auto) 15.4 %; Mean Corpuscular Hgb Conc 31.9 g/dL (32.0-36.0); Mean Corpuscular Volume 87.7 fL (80.0-100.0); Mean Platelet Volume 9.9 fL (9.4-12.4); Monocytes # (auto) 0.18 K/uL (0.11-0.59); Monocytes % (auto) 3.9 %; Neutrophils # (auto) 3.68 K/uL (1.40-6.50); Platelet Count 222 K/uL (130-400); RDW Coefficient of Variation 16.5 % (11.5-14.5); RDW Standard Deviation 52.7 fL (36.4-46.3)
[2023-07-20] MEDS: ALBUT/IPRATROP 3MG/0.5MG NEB 3 ML VIAL NEB SCH ×4 (07:28→18:11)
[2023-07-20 07:37] LABS: BUN Creatinine Ratio 24.1 (10-20); Calcium 8.5 mg/dl (8.6-10.3); Creatinine Clr Calc Pharmacy 32.5 ml/min; Est GFR (African American) 36.6 ml/min; Est GFR (Non-African American) 31.6 ml/min; Magnesium 1.9 mg/dl (1.7-2.4); Potassium 4.8 mmol/L (3.5-5.1)
[2023-07-20 08:44] LABS: Appearance Urine Clear (Clear); Bacteria Urine Automated Negative (Negative); Bilirubin Urine Negative (Negative); Blood Urine Negative (Negative); Color Urine Yellow; Glucose Urine UA Negative (Negative); Ketones Urine Negative (Negative); Leukocyte Esterase Urine Trace (Negative); Nitrite Urine Negative (Negative); Protein Urine Negative (Negative); Specific Gravity Urine 1.009 (1.000-1.030); Urobilinogen Urine Negative (Negative)
[2023-07-20] MEDS ORDERED: FUROSEMIDE 40 MG/4 ML VIAL IV SCH (09:00)
[2023-07-20] MEDS ORDERED: methylPREDNISolone 40 MG in SYRINGE 0 ML IV SCH (09:00)
[2023-07-20] MEDS ORDERED: INSULIN HUMAN NPH SC SCH (09:00)
[2023-07-20] MEDS: FLUTICASONE/VILANTEROL 200/25MCG 14 PUFFS/INHALER INH SCH (09:03)
[2023-07-20] MEDS: FLUTICASONE PROPIONATE NA SPR 16 GM BTL SCH (09:04)
[2023-07-20] MEDS: ATORVASTATIN 40 MG TAB PO SCH (09:05)
[2023-07-20] MEDS: busPIRone 5 MG TAB PO SCH ×2 (09:05→21:12)
[2023-07-20] MEDS: CLOPIDOGREL BISULFATE 75 MG TAB PO SCH (09:05)
[2023-07-20] MEDS: amLODIPine BESYLATE 5 MG TAB PO SCH (09:05)
[2023-07-20] MEDS: APIXABAN 2.5 MG TAB PO SCH ×2 (09:06→21:12)
[2023-07-20] MEDS: allopurinoL 300 MG TAB PO SCH (09:06)
[2023-07-20] MEDS: TAMSULOSIN HCL 0.4 MG CAP PO SCH (09:06)
[2023-07-20] MEDS: METOPROLOL SUCC 50MG EXT REL TAB PO SCH (09:06)
[2023-07-20] MEDS: FUROSEMIDE 40 MG/4 ML VIAL IV SCH ×2 (09:07→21:13)
[2023-07-20] MEDS: LOSARTAN POTASSIUM 50 MG TAB PO SCH (09:07)
[2023-07-20] MEDS: INSULIN ASPART PER UNIT CHARGE SC SCH ×4 (09:15→21:01)
[2023-07-20] MEDS: cefTRIAXone SODIUM 2,000 MG in DEXTROSE 5 % MINI-B 50 ML IV SCH (10:44)
[2023-07-20] MEDS: AZITHROMYCIN 500 MG in DEXTROSE 5% 250 ML IV SCH (11:56)
--- NOTE | 2023-07-20 13:53 | Hospitalist Progress Note ---
Date of Service July 20, 2023 Assessment & Plan (1) Pneumonia: Plan: Possible bilateral on admission. He remains on azithromycin and Rocephin, day 2. Will obtain sputum culture if sputum is produced. Worsening GRAF, wheezing x 2 weeks (2) CHF (congestive heart failure): Plan: This appears to be acute combined systolic and diastolic CHF. Parenteral Lasix every 12 hours ordered. Monitor intake and output. Will repeat chest x-ray again tomorrow, July 21 (3) Weakness: Plan: Generalized, present on admission. Improved with OT and PT. Ambulates with a walker at baseline (4) Afib: Plan: Chronic atrial fibrillation. Controlled rate. Continue Eliquis and metoprolol. Telemetry (5) Hypertension, uncontrolled: Plan: Stable. Continue losartan, metoprolol (6) Hypomagnesemia: Plan: Mild on admission. Now corrected. (7) Diabetes mellitus, type 2: Plan: Stable. ADA diet. Sliding scale coverage as needed. He is on basal insulin therapy while hospitalized and will resume his usual home regimen at discharge. Plan Hopefully home tomorrowJuly 21 Admission and Anticipated Discharge Date Admission Date: July 19, 2023 Subjective Alert and oriented. Chest x-ray is more consistent with congestive heart failure in my opinion. He is now on intravenous Lasix. Solu-Medrol has been discontinued. Mild hypomagnesemia has been corrected. Glucose acceptable at 145. Cardiac echo done this admission reveals ejection fraction of 45% with inferior wall hypokinesis, mild mitral regurgitation, and elevated right ventricular systolic pressures. Review of Systems 2 Review of Systems: Constitutional-no fever or chills ENT-no blurred vision, no double vision, no epistaxis, no sore throat Respiratory-dyspnea on exertion and orthopnea. Cardiac-no palpitations, no chest pain, no syncope GI-no nausea, vomiting, diarrhea, melena, hematochezia -no urinary retention, no urinary incontinence, no dysuria, no hematuria Musculoskeletal-no joint pain, no muscle tenderness Skin-no bruising, no rashes, no pruritus Neuro-no isolated weakness, no paresthesia, no weakness Psych-no depression, no anxiety Physical Exam 2 Physical Exam: General-alert and oriented x3, no fevers, no chills HEENT-head atraumatic and normocephalic, pupils equal and reactive to light, extraocular muscles intact Neck-no lymphadenopathy or thyromegaly, trachea midline Chest-bibasilar inspiratory rales. Faint end expiratory wheezes. Cardiac-irregular rhythm. Controlled rate. Normal S1 and S2 Abdomen-normal bowel sounds, nontender, no hepatosplenomegaly Extremities-no cyanosis, clubbing. 1+ pitting edema bilateral lower extremities below the knees Neuro-cranial nerves II through XII intact, motor and sensory function within normal limits, strength symmetrical, no focal deficits Psych-normal affect, normal mood Results & Data Results & Data Vital Signs (Past 12 Hours) Vital Signs Temp Pulse Pulse Resp BP Pulse Ox O2 Del Method 07/20/23 11:17 36.6 C 63 18 125/71 94 Nasal Cannula 07/20/23 11:12 65 18 95 Nasal Cannula 07/20/23 09:58 Nasal Cannula 07/20/23 07:31 36.5 C 69 18 143/71 H 90 Nasal Cannula 07/20/23 07:30 70 18 94 Nasal Cannula 07/20/23 06:00 68 07/20/23 02:32 36.4 C L 70 18 144/68 H 92 Nasal Cannula O2 Flow Rate 07/20/23 11:17 2 07/20/23 11:12 2 07/20/23 09:58 2 07/20/23 07:31 2 07/20/23 07:30 2 07/20/23 06:00 07/20/23 02:32 2 Laboratory Results 07/20/23 06:28 07/20/23 06:28 PG Care Time/CCT Total # of Minutes Spent Total Time Spent with Patient: Total time spent is greater than 50% in coordination of care (as documented) at patient's floor/unit and/or counseling patient: Coding Level of Care Code 61763 SUB INP/OBS CARE 3/50MIN Diagnoses Pneumonia J18.9 CHF (congestive heart failure) I50.9 Weakness R53.1 Afib I48.91 Hypertension, uncontrolled I10 Hypomagnesemia E83.42 Diabetes mellitus, type 2 E11.9
--- NOTE | 2023-07-20 20:38 | Electrocardiogram Report ---
Test Reason : Blood Pressure : / mmHG Vent. Rate : 074 BPM Atrial Rate : 000 BPM P-R Int : 000 ms QRS Dur : 068 ms QT Int : 376 ms P-R-T Axes : 000 -26 045 degrees QTc Int : 417 ms Atrial fibrillation Low voltage QRS Septal infarct , age undetermined Abnormal ECG When compared with ECG of 25-JUN-2023 09:58, Septal infarct is now Present Nonspecific T wave abnormality now evident in Inferior leads Nonspecific T wave abnormality now evident in Anterolateral leads Confirmed by Travis Ryan ([id number]) on 07/20/2023 8:38:11 PM Referred By: REFERRED SELF Confirmed By:Travis Ryan
[2023-07-21] MEDS: ALBUT/IPRATROP 3MG/0.5MG NEB 3 ML VIAL NEB SCH ×3 (05:45→15:15)
[2023-07-21 05:54] LABS: Basophils # (auto) 0.01 K/uL (0.00-0.20); Basophils % (auto) 0.2 %; Hematocrit (blood only) 27.4 % (42.0-52.0); Hemoglobin 8.5 g/dl (14.0-18.0); Immature Granulocytes # (auto) 0.05 K/uL (0.01-0.20); Immature Granulocytes % (auto) 0.8 %; Lymphocytes # (auto) 0.99 K/uL (1.20-3.40); Mean Corpuscular Hemoglobin 27.5 pg (25.0-34.0); Mean Corpuscular Volume 88.7 fL (80.0-100.0); Mean Platelet Volume 9.7 fL (9.4-12.4); Monocytes # (auto) 0.39 K/uL (0.11-0.59); Monocytes % (auto) 6.3 %; Neutrophils # (auto) 4.73 K/uL (1.40-6.50); Neutrophils % (auto) 76.7 %; Platelet Count 240 K/uL (130-400); RDW Coefficient of Variation 17.1 % (11.5-14.5); RDW Standard Deviation 54.4 fL (36.4-46.3); Red Blood Count 3.09 M/uL (4.70-6.10); White Blood Count 6.17 K/ul (4.8-10.8)
[2023-07-21] MEDS: FAMOTIDINE 40 MG TABLET PO SCH (06:01)
[2023-07-21 06:03] LABS: BUN Creatinine Ratio 22.1 (10-20); Calcium 8.6 mg/dl (8.6-10.3); Creatinine Clr Calc Pharmacy 23.5 ml/min; Est GFR (African American) 24.8 ml/min; Est GFR (Non-African American) 21.4 ml/min; Potassium 4.5 mmol/L (3.5-5.1)
[2023-07-21] MEDS ORDERED: glipiZIDE 5 MG TAB PO SCH (07:30)
[2023-07-21] MEDS: FLUTICASONE/VILANTEROL 200/25MCG 14 PUFFS/INHALER INH SCH (08:49)
[2023-07-21] MEDS: FLUTICASONE PROPIONATE NA SPR 16 GM BTL SCH (08:50)
[2023-07-21] MEDS: busPIRone 5 MG TAB PO SCH (08:51)
[2023-07-21] MEDS: APIXABAN 2.5 MG TAB PO SCH (08:51)
[2023-07-21] MEDS: FUROSEMIDE 40 MG/4 ML VIAL IV SCH (08:52)
[2023-07-21] MEDS: allopurinoL 300 MG TAB PO SCH (08:52)
[2023-07-21] MEDS: amLODIPine BESYLATE 5 MG TAB PO SCH (08:52)
[2023-07-21] MEDS: LOSARTAN POTASSIUM 50 MG TAB PO SCH (08:52)
[2023-07-21] MEDS: ATORVASTATIN 40 MG TAB PO SCH (08:53)
[2023-07-21] MEDS: METOPROLOL SUCC 50MG EXT REL TAB PO SCH (08:53)
[2023-07-21] MEDS: CLOPIDOGREL BISULFATE 75 MG TAB PO SCH (08:53)
[2023-07-21] MEDS: TAMSULOSIN HCL 0.4 MG CAP PO SCH (08:53)
[2023-07-21] MEDS: INSULIN ASPART PER UNIT CHARGE SC SCH ×2 (08:59→12:31)
[2023-07-21] MEDS ORDERED: SITagliptin PHOSPHATE 100 MG TAB PO SCH (09:00)
--- NOTE | 2023-07-21 09:42 | XRay Report ---
XR chest 1V portable CLINICAL HISTORY: CHF TECHNIQUE: Single frontal radiograph of the chest was obtained. Comparison: Comparison is made to chest radiograph 07/19/2023 FINDINGS: Exam is limited by underpenetration. The cardiomediastinal silhouette is stable. Large left lung bull a with adjacent calcifications are unchanged. Previously noted bibasilar airspace opacities are less conspicuous on today's exam. No evidence of pleural effusion or pneumothorax. IMPRESSION: Interval decrease in conspicuity of previously noted bibasilar airspace opacities. ACT 112: Negative or not required by law. Electronically signed by: Zelalem Cohen M.D. 07/21/2023 9:40 AM
[2023-07-21] MEDS: cefTRIAXone SODIUM 2,000 MG in DEXTROSE 5 % MINI-B 50 ML IV SCH (10:33)
--- NOTE | 2023-07-21 12:41 | Discharge Summary ---
Date of Service July 21, 2023 Admission HPI Per Admitting Provider Rao is an 88-year-old male with PMH of BPH, CAD, T2DM, COPD, HLD, HTN, OA, sleep apnea, A-fib, and carotid stenosis. He presented for worsening GRAF and wheezing x 2 weeks. He reports that he has mainly GRAF, but not SOB at rest. Worse with laying supine. He has been using his albuterol inhaler at home, but is only been helping minimally. He uses a walker at baseline, and reports that he is had a couple falls. He uses at home oxygen 2L NC at night. No CPAP. No sick contacts. Of note, the patient fell and broke his hip in April, and was at a alf home/rehab for an extended period of time. Patient reports that he took his morning medications today, and that his daughter helps to manage his medications. He also has some home nursing care. Patient quit smoking in 1963. Vital stable at time of admission; 95% SpO2 on 2 LNC. ED course: Azithromycin 500 mg IV DuoNeb 3 mL Solu-Medrol 125 mg IV Rocephin 2000 mg IV Lasix 40 mg IV ROS: Patient endorses dizziness, lightheaded (with standing), chest discomfort, inability to take deep breaths, and wheezing. Patient denies fever, chills, nightsweats, AGUAYO, chest pain, pleuritic CP, cough, abdominal pain, N/V/D, or numbness/tingling going down legs or arms. 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 Faint end expiratory wheezes persist. Midline rhonchi audible with forced cough Cardiac-irregular rhythm. Controlled rate. Normal S1 and S2 Abdomen-normal bowel sounds, nontender, no hepatosplenomegaly Extremities-no cyanosis, clubbing. 1+ pitting edema bilateral lower extremities below the knees Neuro-cranial nerves II through XII intact, motor and sensory function within normal limits, strength symmetrical, no focal deficits Psych-normal affect, normal mood Discharge Data Allergies Allergy/AdvReac Type Severity Reaction Status Date / Time indomethacin AdvReac Intermediate LOWERED Verified 06/25/23 16:31 WHITE CELL COUNT meloxicam AdvReac Unknown CONTRINDICATED Verified 06/25/23 16:31 PER PT. metformin AdvReac Unknown pt unsure Verified 06/25/23 16:31 why Consultations 07/19/23 11:47 ED Decision to Admit Stat Hospital Course (1) Pneumonia: Possible bilateral on admission. I suspect however this was simply bronchitis with bronchospasm. He was treated while hospitalized with azithromycin and Rocephin. He will continue azithromycin at discharge. Will obtain sputum culture if sputum is produced. Worsening GRAF, wheezing x 2 weeks (2) CHF (congestive heart failure): This appears to be acute combined systolic and diastolic CHF. Parenteral Lasix every 12 hours produced significant diuresis and CHF has now resolved. Chest x- ray done today, July 21, looks better. Will continue oral Lasix at discharge. (3) Weakness: Generalized, present on admission. Resolved now with OT and PT. Ambulates with a walker at baseline (4) Afib: Chronic atrial fibrillation. Controlled rate. Continue Eliquis and metoprolol. Telemetry (5) Hypertension, uncontrolled: Stable. Continue losartan, metoprolol (6) Hypomagnesemia: Mild on admission. Now corrected. (7) Diabetes mellitus, type 2: Stable. ADA diet. Sliding scale coverage as needed. He was treated with basal insulin therapy while hospitalized and will resume his usual home regimen at discharge. Plan Home today, July 21 Total Time Total Time Spent Total Time Spent (In Minutes): 45-minute Discharge Plan Discharge Items Patient Disposition: Home - Self-Care Reason For Visit: SOB/DYSPNEA Discharge Diagnosis: Acute on chronic combined systolic and diastolic CHF, acute bronchitis with bronchospasm Activity: Resume your previous activity Non-emergency contact: Primary Care Provider Call non-emergency contact if: you have any medication questions and your symptoms worsen Follow-up/Referrals: Alen Vigil D.O. [Primary Care Provider] - Diet: Carb Consistent or DM2 and Heart Healthy Addtl Attending Provider Instructions: Take prednisone in a tapering dose fashion as directed. Take azithromycin antibiotics for 5 more days. Take Lasix daily after lunch Pending Studies at Discharge: No Stand-Alone Forms: My [facility], Smoking Cessation Medications and DC Order Prescriptions: New prednisone 10 mg tablet See Rx Instructions .ROUTE .COMPLEX Qty: 12 0RF Rx Instructions: 10 mg orally 3 times a day for 2 days, then 10 mg twice a day for 2 days, then 10 mg once a day for 2 days, then stop azithromycin 500 mg tablet 500 mg PO DAILY 5 Days Qty: 5 0RF furosemide [Lasix] 40 mg tablet 40 mg PO DAILY Qty: 30 0RF Continued glipizide 10 mg Tablet 10 mg PO BID metoprolol succinate 100 mg Tablet Extended Release 24 Hr 100 mg PO QAM tamsulosin 0.4 mg Capsule 0.8 mg PO QAM allopurinol 300 mg Tablet 300 mg PO QAM albuterol sulfate 90 mcg/actuation Hfa Aerosol Inhaler 2 puff INHALATION Q4H PRN (Reason: Wheezing) Januvia 100 mg Tablet 100 mg PO QAM fluticasone furoate-vilanterol [Breo Ellipta] 200-25 mcg/dose blister with device 1 ea INHALATION DAILY atorvastatin 40 mg Tablet 40 mg PO QAM Qty: 30 1RF clopidogrel 75 mg Tablet 75 mg PO QAM Qty: 30 1RF repaglinide 0.5 mg tablet 0.5 mg PO BID Qty: 60 0RF Rx Instructions: Administer within 30 minutes of a meal or snack Eliquis 2.5 mg tablet 2.5 mg PO BID losartan 50 mg tablet 50 mg PO DAILY buspirone 5 mg tablet 2.5 mg PO BID famotidine 40 mg tablet 40 mg PO DAILYBB amlodipine 5 mg Tablet 5 mg PO DAILY lorazepam 1 mg Tablet 1 mg PO Q6H PRN (Reason: Anxiety) colchicine 0.6 mg tablet 0.6 mg PO BID PRN (Reason: GOUT FLARES) Rx Instructions: TAKE UNTIL PAIN RELIEVED OR DIARRHEA/NAUSEA. fluticasone propionate 50 mcg/actuation [place],Suspension 2 spray INTRANASAL DAILY Rx Instructions: administer into each nostril Discharge Orders: Discharge Order- CHF (Routine); Ordered 07/21/23 Ordered By: Simon Ventura Admission Data Admit Date/Time: 07/19/23 12:22 Attending Provider: Simon Ventura Admit Provider: Lauri David Primary Care Provider: Alen Vigil Other Providers: Lauri David Coding Level of Care Code 52503 INP/OBS DISCH >30 MIN Diagnoses Pneumonia J18.9 CHF (congestive heart failure) I50.9 Weakness R53.1 Afib I48.91 Hypertension, uncontrolled I10 Hypomagnesemia E83.42 Diabetes mellitus, type 2 E11.9
[2023-07-21] MEDS: AZITHROMYCIN 500 MG in DEXTROSE 5% 250 ML IV SCH (13:22)
== END 2023-07-21 15:19 | disposition home or self-care (01) | DRG 291 ==
LOC: ED 09:31 → SUATTDRO 12:22 → EDINP 12:22 → 2N 13:47

== ENCOUNTER 2023-08-04 18:03 | Inpatient (IN) ==
--- NOTE | 2023-08-04 18:15 | ED Triage Note ---
Date of Service August 04, 2023 Provider in Triage Author: Uyen Plata History of Present Illness This patient was briefly evaluated while in triage. An abbreviated physical exam was performed. This patient is a 88-year-old Male who presents to the ED for evaluation of chest cold and congestion since . Pt was seen by [facility] and was referred to ED for respiratory concerns. Physical Exam Initial orders for labs and / or imaging were placed and patient was placed in the waiting area until a bed is available. Please see further documentation for the full ED course.
--- NOTE | 2023-08-04 19:23 | XRay Report ---
SINGLE VIEW CHEST CLINICAL HISTORY: Dyspnea FINDINGS: A PA chest radiograph is compared to study dated 07/21/2023 and 12/11/2017. Correlation is m karyn with CT angiogram of the neck dated 06/11/2019. The heart is enlarged noting atherosclerotic calc ification of the thoracic aorta. The pulmonary vasculature is noncongested. Emphysema with a large le ft upper lobe bullae is unchanged from previous. There is bibasilar scarring/atelectasis. No superimp osed airspace consolidation or pleural effusion is identified. Large calcifications projecting over t he left hemithorax are unchanged from prior examinations. No pneumothorax is seen. The skeletal struc tures are osteopenic. The bony thorax is grossly intact. IMPRESSION: Cardiomegaly, emphysema, and chronic parenchymal changes as above with no acute cardiopul monary abnormality identified. ACT 112: Negative or not required by law. Electronically signed by: Jhon Sun M.D. 08/04/2023 7:20 PM
[2023-08-04 20:11] LABS: Hematocrit (blood only) 34.4 % (42.0-52.0); Hemoglobin 10.2 g/dl (14.0-18.0); Mean Corpuscular Hemoglobin 27.5 pg (25.0-34.0); Mean Corpuscular Hgb Conc 29.7 g/dL (32.0-36.0); Mean Corpuscular Volume 92.7 fL (80.0-100.0); Mean Platelet Volume 10.2 fL (9.4-12.4); Platelet Count 225 K/uL (130-400); RDW Coefficient of Variation 17.3 % (11.5-14.5); RDW Standard Deviation 59.5 fL (36.4-46.3); Red Blood Count 3.71 M/uL (4.70-6.10); White Blood Count 2.34 K/ul (4.8-10.8)
[2023-08-04 20:29] LABS: Alanine Aminotransferase 15 U/L (7-52); Albumin Level 3.7 gm/dl (3.4-5.0); Alkaline Phosphatase 76 U/L (34-104); Anion Gap 5 (3-11); Aspartate Aminotransferase 13 U/L (13-39); BUN Creatinine Ratio 21.8 (10-20); Blood Urea Nitrogen 57 mg/dl (6-23); Calcium 9.6 mg/dl (8.6-10.3); Carbon Dioxide 31 mmol/L (21-32); Chloride 101 mmol/L (98-107); Est GFR (African American) 24.4 ml/min; Globulin 3.7 gm/dl (2.5-4.0); Glucose 147 mg/dl (70-99(Fasting)); Magnesium 1.8 mg/dl (1.7-2.4); Sodium 137 mmol/L (136-145); Total Protein 7.4 gm/dl (6.0-8.3)
[2023-08-04 20:57] LABS: ALC (manual) 1.38 K/uL (1.2-3.4); ANC (manual) 0.19 K/uL (1.4-6.5); Basophils # (manual) 0.07 K/uL (0-0.2); Basophils % (manual) 3 %; Eosinophils # (manual) 0.12 K/uL (0-0.50); Eosinophils % (manual) 5 %; Large Granular Lymph # (manua 1.01 K/uL; Large Granular Lymph % (manual) 43 %; Lymphocytes # (manual) 0.37 K/uL (1.2-3.4); Lymphocytes % (manual) 16 %; Monocytes # (manual) 0.59 K/uL (0.11-0.59); Monocytes % (manual) 25 %; Neutrophils # (manual) 0.19 K/uL (1.40-6.50); Neutrophils % (manual) 8 %; Ovalocytes 1+
[2023-08-04 22:20] LABS: Adenovirus PCR Not Detected (NotDetected); Bordetella parapertussis PCR Not Detected (NotDetected); Bordetella pertussis PCR Not Detected (NotDetected); Chlamydia pneumoniae PCR Not Detected (NotDetected); Coronavirus 229E PCR Not Detected (NotDetected); Coronavirus CoV-2 (COVID19)PCR Not Detected (NotDetected); Coronavirus HKU1 PCR Not Detected (NotDetected); Coronavirus NL63 PCR Not Detected (NotDetected); Coronavirus OC43PCR Not Detected (NotDetected); Human Metapneumovirus PCR Not Detected (NotDetected); Influenza A PCR Not Detected (NotDetected); Influenza B PCR Not Detected (NotDetected); Mycoplasma pneumoniae PCR Not Detected (NotDetected); Parainfluenza Virus 1 PCR Not Detected (NotDetected); Parainfluenza Virus 2 PCR Not Detected (NotDetected); Parainfluenza Virus 3 PCR Not Detected (NotDetected); Parainfluenza Virus 4 PCR Not Detected (NotDetected); Rhinovirus/Enterovirus PCR Not Detected (NotDetected)
[2023-08-04 22:22] LABS: Respiratory Syncytial VirusPCR DETECTED (NotDetected)
--- NOTE | 2023-08-04 22:51 | CT Scan Report ---
Exam(s): CT CHEST Without Contrast EXAM: CT Chest Without Intravenous Contrast CLINICAL HISTORY: Reason for exam: cough, sob, neutropenic. TECHNIQUE: Axial computed tomography images of the chest without intravenous contrast. CTDI is 17.9 mGy and DLP is 680.29 mGy-cm. Automated exposure control was utilized for the study. A dose lowering technique was utilized adhering to the principles of ALARA. COMPARISON: No relevant prior studies available. FINDINGS: Lungs: Large bulla in the LEFT upper lobe, measuring 18.7 x 10.6 cm. Peripheral nodular calcified density along the periphery of the bulla. This is identified on CXR from same day. No consolidation. Pleural space: Unremarkable. No lobar consolidation, pleural effusion, or pneumothorax. Heart: Unremarkable. No cardiomegaly. No significant pericardial effusion. No significant coronary artery calcifications. Bones/joints: Degenerative changes of the spine. No acute fracture. No dislocation. Soft tissues: Unremarkable. Vasculature: Atherosclerotic changes of the aorta. No thoracic aortic aneurysm. Lymph nodes: Unremarkable. No enlarged lymph nodes. IMPRESSION: 1. No lobar consolidation, pleural effusion, or pneumothorax. 2. Large bulla in the LEFT upper lobe, measuring 18.7 x 10.6 cm. Peripheral nodular calcified density along the periphery of the bulla. This is identified on CXR from same day. Electronically signed by: Adolph Godinez MD 08/04/23 22:50 PM
--- NOTE | 2023-08-04 22:55 | Emergency Department Note ---
Impression & Plan RSV infection, CHF (congestive heart failure), Neutropenia, COPD with acute exacerbation ED Provider Note NAME: QUAN LAINEZ AGE: 88 SEX: M ARRIVES VIA: Walk-In INFORMANT: Patient ED PROVIDER(S): Kolby Man MD CHIEF COMPLAINT: Shortness of breath PLAN: Disposition: Admit MEDICAL DECISION MAKING: The patient is a pleasant 88-year-old gentleman with a past medical history of COPD/emphysema, CHF, CAD, atrial fibrillation on Eliquis, CKD, gout, TIA, osteoarthritis, hypertension hyperlipidemia, type 2 diabetes who presents to the emergency department via walk-in accompanied by family for worsening cough, congestion and shortness of breath over the past week in setting of having ongoing congestion even since his discharge following an admission from 07/19- 07/21 for pneumonia complicated by CHF and COPD. Patient denies having measured fevers but has felt weak, achy and short of breath. He reports he has sputum but is unable to fully mobilize and cough it out. He denies nausea or vomiting. He has been in contact with other family members who did have similar respiratory symptoms over a week ago. Of note, the patient did arrive to emergency department during time of high volume, acuity and prolonged emergency department waiting times. Critical pathways initiated from triage. On my evaluation the patient is fatigued appearing, fatigued, ill appearing and in no acute distress, afebrile with stable vital signs with O2 saturation 92% on room air with mild work of breathing but no distress. He has wheezes of bilateral lung mcbride with scant rhonchi of the bilateral lower lung mcbride. He has 2+ bilateral lower extremity pitting edema. WBC 2.3 with new neutropenia with ANC of 0.19 K. H/H 10.2/34.4 increased from prior. Platelets within normal limits. Chemistry without metabolic acidosis. Creatinine 2.6, similar to prior range values in the setting of CKD. Lactic acid 1.9, within normal limits. LFTs are unremarkable. High-sensitivity troponin is within normal limits. BNP is 345 consistent with patient's hypervolemia though in the setting of CKD as well. Blood cultures were obtained given patient's illness with neutropenia. Procalcitonin is pending. Respiratory viral panel did return positive for RSV. CT of the chest was performed and did not demonstrate focal consolidation. Large left lung bullae simile described on prior x-rays is stable. Findings were reviewed with the patient and family at the bedside. Given the patient's worsening symptoms over the past week in the setting of RSV infection complicated by CHF and COPD now neutropenic they do agree with plan for admission for further management. Treatment initiated with Solu-Medrol, DuoNeb, guaifenesin and flutter valve also ordered to the bedside. 40 mg of IV Lasix also ordered for component of hypervolemia. Case was discussed with Dr. Tamayo, [facility] hospitalist, who will evaluate the patient for admission. Cefepime and Zyvox ordered for empiric antibiotic coverage in the setting of neutropenia. Triage Nursing notes reviewed and agree them. Prior/external medical records reviewed Vital Signs: reviewed Differential diagnosis: Reactive airway disease, pneumonia, pneumothorax, COPD, CHF, infections, cardiac ischemia, pulmonary embolism, musculoskeletal, gastrointestinal, as well as other pathologies. ER treatment provided: See below. Diagnostics interpreted by me: ECG: Atrial fibrillation, 79bpm, no ectopy, no overt ST elevation or depression, QTc 426, QRS 72. Cardiac Monitoring: An order for continuous cardiac monitoring was placed and demonstrated Atrial fibrillation, 79bpm, no ectopy. Laboratory studies: See below Imaging studies: See below Consultation(s): Case was discussed with Dr. Tamayo [facility] [place] hospitalist, who will evaluate the patient for admission. HPI: The patient is a pleasant 88-year-old gentleman with a past medical history of COPD/emphysema, CHF, CAD, atrial fibrillation on Eliquis, CKD, gout, TIA, osteoarthritis, hypertension hyperlipidemia, type 2 diabetes who presents to the emergency department via walk-in accompanied by family for worsening cough, congestion and shortness of breath over the past week in setting of having ongoing congestion even since his discharge following an admission from 07/19- 07/21 for pneumonia complicated by CHF and COPD. Patient denies having measured fevers but has felt weak, achy and short of breath. He reports he has sputum but is unable to fully mobilize and cough it out. He denies nausea or vomiting. He has been in contact with other family members who did have similar respiratory symptoms over a week ago. ROS: See above HPI for pertinent positives & negatives. A total of 10 systems reviewed and were otherwise negative. VITALS:See Below PHYSICAL EXAMINATION: GENERAL: Awake, alert, ill-appearing, in no distress HENT: Normocephalic, atraumatic. Oropharynx unremarkable. EYES: Normal conjunctiva. Sclera non-icteric. NECK: Supple. No nuchal rigidity. FROM. No JVD. RESPIRATORY: Wheezes of bilateral lung mcbride with scant rhonchi of the bilateral lower lung mcbride. CARDIAC: Regular rate, normal rhythm. Extremities warm and well perfused. Pulses equal. ABDOMEN: Soft, non-distended. No tenderness to palpation. No rebound or guarding. No masses. RECTAL: Deferred. MUSCULOSKELETAL: Chest examination reveals no tenderness. The back is symmetrical on inspection without obvious abnormality. There is no CVA tenderness to palpation. No joint edema. LOWER EXTREMITIES: Calves are equal size bilaterally and non-tender. 2+ BLE edema. No discoloration. NEURO: Normal sensorium. No sensory or motor deficits noted. SKIN: No rash or jaundice noted. Kolby Man MD Past Med/Surg History Medical History Gout Cutaneous vasculitis Urinary retention CAD (coronary artery disease) s/p stent to RCA x 1 2009 Neuropathy LEFT LOWER LEG/FOOT. PT STATES HE HAS DROP FOOT. BPH (benign prostatic hyperplasia) Osteoarthritis Diabetes mellitus, type 2 Chronic obstructive pulmonary disease very rare albuterol use. Daily Advair, stable. Sleep apnea PT HAS CPAP DEVICE, DOES NOT CURRENTLY WEAR. Transient ischemic attack (TIA) JANUARY 2018. NO RESIDUAL. Hypertension Hyperlipidemia Surgical History History of carotid endarterectomy LEFT. 2018 in [place] History of tonsillectomy History of colonoscopy History of cholecystectomy Fusion of spine LUMBAR History of cardiac cath 2009. STENT X1. [facility] Family History Other Family history non-contributory Social History Smoking Status: Former smoker Tobacco Type: Cigarettes Cigarettes Per Day: 1 pack; Second Hand Exposure: No; Do You Dip or Chew Tobacco: No; Hx Alcohol Use: No Hx Substance Use: No Preferred Language: [place] Communication Ability: Effective Vegetable Canner Required: No Beliefs That Will Affect Care: None Current Living Situation: Spouse Current Living Situation Comment: Currently living with daughter Feels Safe at Home: Yes Safety Concerns: Feels Safe At This Time Assistive Devices: Cane and Walker Allergies Allergies Allergy/AdvReac Type Severity Reaction Status Date / Time indomethacin AdvReac Intermediate LOWERED Verified 08/05/23 00:25 WHITE CELL COUNT meloxicam AdvReac Unknown CONTRINDICATED Verified 08/05/23 00:25 PER PT. metformin AdvReac Unknown pt unsure Verified 08/05/23 00:25 why Home Meds Home Medications Medication Instructions Recorded Confirmed albuterol sulfate 90 mcg/actuation 2 puff inhalation Q4H PRN Wheezing 06/12/18 08/05/23 aerosol inhaler allopurinol 300 mg tablet 300 mg PO QAM 06/12/18 08/05/23 glipizide 10 mg tablet 10 mg PO BID 06/12/18 08/05/23 metoprolol succinate 100 mg 100 mg PO QAM 06/12/18 08/05/23 tablet,extended release 24 hr sitagliptin phosphate 100 mg 100 mg PO QAM 06/12/18 08/05/23 tablet (Januvia) tamsulosin 0.4 mg capsule 0.8 mg PO QAM 06/12/18 08/05/23 fluticasone furoate 200 1 ea inhalation DAILY 06/09/19 08/05/23 mcg-vilanterol 25 mcg/dose inhalation powder (Breo Ellipta) amlodipine 5 mg tablet 5 mg PO DAILY 06/25/23 08/05/23 apixaban 2.5 mg tablet (Eliquis) 2.5 mg PO BID 06/25/23 08/05/23 buspirone 5 mg tablet 2.5 mg PO BID 06/25/23 08/05/23 colchicine 0.6 mg tablet 0.6 mg PO BID PRN GOUT FLARES 06/25/23 08/05/23 famotidine 40 mg tablet 40 mg PO DAILYBB 06/25/23 08/05/23 fluticasone propionate 50 2 spray intranasal DAILY 06/25/23 08/05/23 mcg/actuation nasal spray,suspension lorazepam 1 mg tablet 1 mg PO Q6H PRN Anxiety 06/25/23 08/05/23 losartan 50 mg tablet 50 mg PO DAILY 06/25/23 08/05/23 Previous Rx's Medication Instructions Recorded atorvastatin 40 mg tablet 40 mg PO QAM #30 tabs 06/11/19 clopidogrel 75 mg tablet 75 mg PO QAM #30 tabs 06/11/19 repaglinide 0.5 mg tablet 0.5 mg PO BID #60 tabs 06/11/19 furosemide 40 mg tablet (Lasix) 40 mg PO DAILY #30 tabs 07/21/23 Results & Data (ED) Vital Signs Vital Signs - 24 hr 08/04/23 18:14 08/04/23 21:43 08/04/23 21:53 Temperature 37 C Temperature Source Temporal Artery Scan Pulse Rate 69 85 Pulse Rate [Finger] 77 Respiratory Rate 22 18 Respiratory Effort / Characteristics Non-Labored Spontaneous Respiratory Depth Normal Respiratory Pattern Regular Blood Pressure 113/69 Blood Pressure [Right Arm] 130/74 Blood Pressure Mean 83 Blood Pressure Mean [Right Arm] 92 Pulse Oximetry 95 92 Oxygen Delivery Method Room Air Room Air Sepsis Recent Fever Within 48 Hours No Sepsis New/Unexplained Change in Mental Status No Sepsis Action Taken by Nursing No Action Required 08/05/23 00:20 Temperature Temperature Source Pulse Rate Pulse Rate [Finger] 83 Respiratory Rate 16 Respiratory Effort / Characteristics Non-Labored Spontaneous Respiratory Depth Normal Respiratory Pattern Blood Pressure Blood Pressure [Right Arm] 145/79 H Blood Pressure Mean Blood Pressure Mean [Right Arm] 101 Pulse Oximetry 96 Oxygen Delivery Method Room Air Sepsis Recent Fever Within 48 Hours Sepsis New/Unexplained Change in Mental Status Sepsis Action Taken by Nursing Laboratory Data Attestation: I reviewed the patient's lab results. 08/04/23 19:40 08/04/23 19:40 Lab Results 08/04/23 08/04/23 Range/Units 19:40 22:41 WBC 2.34 L (4.8-10.8) K/ul RBC 3.71 L (4.70-6.10) M/uL Hgb 10.2 L (14.0-18.0) g/dl Hct 34.4 L (42.0-52.0) % MCV 92.7 (80.0-100.0) fL MCH 27.5 (25.0-34.0) pg MCHC 29.7 L (32.0-36.0) g/dL RDW Std Deviation 59.5 H (36.4-46.3) fL RDW Coeff of Reji 17.3 H (11.5-14.5) % Plt Count 225 (130-400) K/uL MPV 10.2 (9.4-12.4) fL Reticulocyte % (Auto) 2.3 H (0.5-2.0) % Reticulocyte # 0.08 (0.02-0.10) 10^6/uL Neutrophils % (Manual) 8 % Lymphocytes % (Manual) 16 % Monocytes % (Manual) 25 % Eosinophils % (Manual) 5 % Basophils % (Manual) 3 % Neutrophils # (Manual) 0.19 L (1.40-6.50) K/uL Total Absolute Neuts 0.19 L* (1.4-6.5) K/uL Lymphocytes # (Manual) 0.37 L (1.2-3.4) K/uL Total Abs Lymphocytes 1.38 (1.2-3.4) K/uL Monocytes # (Manual) 0.59 (0.11-0.59) K/uL Eosinophils # (Manual) 0.12 (0-0.50) K/uL Basophils # (Manual) 0.07 (0-0.2) K/uL Large Granular Lymphs 43 % # Lrg Granular Lymphs 1.01 K/uL Ovalocytes 1+ Sodium 137 (136-145) mmol/L Potassium 5.0 (3.5-5.1) mmol/L Chloride 101 (98-107) mmol/L Carbon Dioxide 31 (21-32) mmol/L Anion Gap 5 (3-11) BUN 57 H (6-23) mg/dl Creatinine 2.62 H (0.6-1.4) mg/dl Est Cr Clr Drug Dosing Not Reportable Est GFR ( Amer) 24.4 ml/min Est GFR (Non-Af Amer) 21.0 ml/min BUN/Creatinine Ratio 21.8 H (10-20) Glucose 147 H (70-99(Fasting)) mg/dl Lactate 1.9 (0.4-2.0) mmol/L Calcium 9.6 (8.6-10.3) mg/dl Magnesium 1.8 (1.7-2.4) mg/dl Total Bilirubin 1.0 (0.2-1.0) mg/dl AST 13 (13-39) U/L ALT 15 (7-52) U/L Alkaline Phosphatase 76 (34-104) U/L Troponin I High Sens 9.0 (0-20) pg/ml B-Natriuretic Peptide 345 H (0-100) pg/ml Total Protein 7.4 (6.0-8.3) gm/dl Albumin 3.7 (3.4-5.0) gm/dl Globulin 3.7 (2.5-4.0) gm/dl Albumin/Globulin Ratio 1.0 (0.9-2) Procalcitonin 0.12 (0-0.5) ng/ml Adenovirus (PCR) Not Detected (NotDetected) B. pertussis DNA (PCR) Not Detected (NotDetected) B.parapertussis DNA PCR Not Detected (NotDetected) C. pneumoniae DNA (PCR) Not Detected (NotDetected) Coronavirus OC43 (PCR) Not Detected (NotDetected) Coronavirus HKU1 (PCR) Not Detected (NotDetected) Coronavirus 229E (PCR) Not Detected (NotDetected) SARS-CoV-2 (PCR) Not Detected (NotDetected) Coronavirus NL63 (PCR) Not Detected (NotDetected) Human Metapneumovir PCR Not Detected (NotDetected) Influenza Type A (PCR) Not Detected (NotDetected) Influenza Type B (PCR) Not Detected (NotDetected) M. pneumoniae (PCR) Not Detected (NotDetected) Parainfluenza 1 (PCR) Not Detected (NotDetected) Parainfluenza 2 (PCR) Not Detected (NotDetected) Parainfluenza 3 (PCR) Not Detected (NotDetected) Parainfluenza 4 (PCR) Not Detected (NotDetected) RSV (PCR) DETECTED A* (NotDetected) Entero/Rhino (PCR) Not Detected (NotDetected) Administered Medications Discontinued Medications Albuterol (Albut/Ipratrop 3mg/0.5mg Neb 3 Ml Vial) 3 ml NEB NOW STA; Protocol Stop: 08/04/23 23:21 Last Admin: 08/04/23 23:32 Dose: 3 ml Documented By: GEORGE Furosemide (Furosemide 40 Mg/4 Ml Vial) 40 mg IV NOW STA Stop: 08/04/23 23:21 Last Admin: 08/04/23 23:32 Dose: 40 mg Documented By: GEORGE Guaifenesin (Guaifenesin 600 Mg Tabcr) 600 mg PO NOW STA Stop: 08/04/23 23:21 Last Admin: 08/04/23 23:32 Dose: 600 mg Documented By: GEORGE Cefepime HCl (Maxipime) 2,000 mg in 20 mls @ 5 mls/min IV NOW STA; Protocol Stop: 08/04/23 23:58 Last Admin: 08/05/23 00:14 Dose: 5 mls/min Documented By: GEORGE Linezolid (Zyvox) 600 mg in 300 mls @ 300 mls/hr IV Q12H JASMIN Stop: 08/06/23 23:44 Last Infusion: 08/05/23 01:41 Dose: Infused Documented By: Admin: 08/05/23 00:14 Dose: 300 mls/hr Documented By: GEORGE Methylprednisolone (Methylprednisolone 125 Mg/2 Ml Vial) 125 mg IV NOW STA Stop: 08/04/23 23:21 Last Admin: 08/04/23 23:32 Dose: 125 mg Documented By: GEORGE Imaging Data Radiologist's Impression: Chest X-Ray 08/04/23 18:15 SINGLE VIEW CHEST CLINICAL HISTORY: Dyspnea FINDINGS: A PA chest radiograph is compared to study dated 07/21/2023 and 12/11/2017. Correlation is made with CT angiogram of the neck dated 06/11/2019. The heart is enlarged noting atherosclerotic calcification of the thoracic aorta. The pulmonary vasculature is noncongested. Emphysema with a large left upper lobe bullae is unchanged from previous. There is bibasilar scarring/atelectasis. No superimposed airspace consolidation or pleural effusion is identified. Large calcifications projecting over the left hemithorax are unchanged from prior examinations. No pneumothorax is seen. The skeletal structures are osteopenic. The bony thorax is grossly intact. IMPRESSION: Cardiomegaly, emphysema, and chronic parenchymal changes as above with no acute cardiopulmonary abnormality identified. ACT 112: Negative or not required by law. Electronically signed by: Jhon Sun M.D. 08/04/2023 7:[address] 08/04/23 21:54 Exam(s): CT CHEST Without Contrast EXAM: CT Chest Without Intravenous Contrast CLINICAL HISTORY: Reason for exam: cough, sob, neutropenic. TECHNIQUE: Axial computed tomography images of the chest without intravenous contrast. CTDI is 17.9 mGy and DLP is 680.29 mGy-cm. Automated exposure control was utilized for the study. A dose lowering technique was utilized adhering to the principles of ALARA. COMPARISON: No relevant prior studies available. FINDINGS: Lungs: Large bulla in the LEFT upper lobe, measuring 18.7 x 10.6 cm. Peripheral nodular calcified density along the periphery of the bulla. This is identified on CXR from same day. No consolidation. Pleural space: Unremarkable. No lobar consolidation, pleural effusion, or pneumothorax. Heart: Unremarkable. No cardiomegaly. No significant pericardial effusion. No significant coronary artery calcifications. Bones/joints: Degenerative changes of the spine. No acute fracture. No dislocation. Soft tissues: Unremarkable. Vasculature: Atherosclerotic changes of the aorta. No thoracic aortic aneurysm. Lymph nodes: Unremarkable. No enlarged lymph nodes. IMPRESSION: 1. No lobar consolidation, pleural effusion, or pneumothorax. 2. Large bulla in the LEFT upper lobe, measuring 18.7 x 10.6 cm. Peripheral nodular calcified density along the periphery of the bulla. This is identified on CXR from same day. Electronically signed by: Adolph Godinez MD 08/04/23 22:50 PM Discharge Plan Visit Data Chief Complaint: Chest Pain Stated Complaint: CHEST PRESSURE, COUGH ED Provider: Kolby Man Discharge Problem: RSV infection, CHF (congestive heart failure), Neutropenia, COPD with acute exacerbation Patient Disposition: Admitted As Inpatient Discharge Instructions Interventions: ED Discharge Assessment Last Done: 08/05/23 01:09 Discharge Problem: CHF (congestive heart failure) Qualifiers: Heart failure type: unspecified Heart failure chronicity: acute on chronic Q ualified Code(s): I50.9 - Heart failure, unspecified Neutropenia Qualifiers: Neutropenia type: unspecified Qualified Code(s): D70.9 - Neutropenia, unspecified
[2023-08-04] MEDS ORDERED: guaiFENesin 600 MG TABCR PO STA (23:20)
[2023-08-04] MEDS ORDERED: FUROSEMIDE 40 MG/4 ML VIAL IV STA (23:20)
[2023-08-04] MEDS ORDERED: methylPREDNISolone 125 MG/2 ML VIAL IV STA (23:20)
[2023-08-04] MEDS ORDERED: ALBUT/IPRATROP 3MG/0.5MG NEB 3 ML VIAL NEB STA (23:20)
[2023-08-04] MEDS ORDERED: LINEZOLID 600 MG/300 ML BAG IV SCH (23:45)
[2023-08-04] MEDS ORDERED: CEFEPIME 2,000 MG/20 ML VIAL IV STA (23:55)
--- NOTE | 2023-08-05 00:24 | History & Physical Report ---
Date of Service August 05, 2023 Assessment & Plan (1) Acute respiratory failure with hypoxia: (2) COPD with acute exacerbation: (3) Neutropenia: (4) RSV (respiratory syncytial virus pneumonia): (5) Urethral erosion: (6) Afib: Plan Acute respiratory failure with hypoxia/RSV pneumonia/COPD exacerbation/neutropenia with ANC 190- Given Solu-Medrol 125 mg IV, guaifenesin 600 mg p.o., DuoNeb and furosemide 40 mg IV from the ED Solu-Medrol 40 mg IV every 8 hours Duonebs every 4 hours while awake and every 2 hours when necessary. Zyvox 600 mg IV every 12 hours Cefepime 2 g IV every 12 hours Guaifenesin extended release 12 mg p.o. every 12 hours Neutropenic precautions. Patient's ANC was normal 2 weeks ago. Likely secondary to RSV infection, follow serially, consult hematology as needed Nasal cannula oxygen, titrate to keep pulse ox around 90% Atrial fibrillation/CAD/hypertension- Continue apixaban, amlodipine, metoprolol succinate and clopidogrel Holding losartan due to acute kidney injury SAULO superimposed on CKD- Creatinine 2.62, with baseline 1.73 Hold lisinopril, hold any further furosemide, recheck laboratories in a.m. Diabetes mellitus- Hold glipizide, Januvia Continue repaglinide Placed on Accu-Cheks with NovoLog SSI BPH/urethral erosion- Continue tamsulosin 0.8 mg every morning, Follow urine culture and sensitivity History of Present Illness Chief Complaint: The patient presents to the emergency department with complaint of worsening cough, shortness of breath, dyspnea exertion over the past week since having been discharged from the hospital from last admission from 07/19-07/21/2023 Primary Care Provider: Alen Vigil The patient is an 88-year-old male with a past medical history including gout, CHF, pneumonia, urethral erosion, cutaneous vasculitis, recurrent UTI, A-fib, generalized weakness, carotid stenosis, hypertension, TIA, hyperlipidemia, diabetes mellitus type 2 and CAD. His most recent admission from 06/25- 06/27/2023 was for UTI. Next admission from 07/19-07/21/2023 was for pneumonia. He reports having been improved until about 1 week ago, when he started developing shortness of breath, worsening cough and dyspnea on exertion. Significant workup in the emergency department this evening included [employer] test positive for RSV. Patient was also found to be newly neutropenic compared to most recent hospitalization, with WBC 2.34 and ANC 190. Creatinine was significant elevated at 2.62, compared to baseline of 1.73 From the ED the patient received the following: Solu-Medrol 105 5 mg IV, guaifenesin 6 mg p.o., DuoNeb treatment and furosemide 40 mg IV. Allergies Allergy/AdvReac Type Severity Reaction Status Date / Time indomethacin AdvReac Intermediate LOWERED Verified 08/05/23 00:25 WHITE CELL COUNT meloxicam AdvReac Unknown CONTRINDICATED Verified 08/05/23 00:25 PER PT. metformin AdvReac Unknown pt unsure Verified 08/05/23 00:25 why Home Medications Medication Instructions Recorded Confirmed Type albuterol sulfate 90 mcg/actuation 2 puff inhalation Q4H PRN Wheezing 06/12/18 08/05/23 History aerosol inhaler allopurinol 300 mg tablet 300 mg PO QAM 06/12/18 08/05/23 History glipizide 10 mg tablet 10 mg PO BID 06/12/18 08/05/23 History metoprolol succinate 100 mg 100 mg PO QAM 06/12/18 08/05/23 History tablet,extended release 24 hr sitagliptin phosphate 100 mg 100 mg PO QAM 06/12/18 08/05/23 History tablet (Januvia) tamsulosin 0.4 mg capsule 0.8 mg PO QAM 06/12/18 08/05/23 History fluticasone furoate 200 1 ea inhalation DAILY 06/09/19 08/05/23 History mcg-vilanterol 25 mcg/dose inhalation powder (Breo Ellipta) atorvastatin 40 mg tablet 40 mg PO QAM #30 tabs 06/11/19 08/05/23 Rx clopidogrel 75 mg tablet 75 mg PO QAM #30 tabs 06/11/19 08/05/23 Rx repaglinide 0.5 mg tablet 0.5 mg PO BID #60 tabs 06/11/19 08/05/23 Rx amlodipine 5 mg tablet 5 mg PO DAILY 06/25/23 08/05/23 History apixaban 2.5 mg tablet (Eliquis) 2.5 mg PO BID 06/25/23 08/05/23 History buspirone 5 mg tablet 2.5 mg PO BID 06/25/23 08/05/23 History colchicine 0.6 mg tablet 0.6 mg PO BID PRN GOUT FLARES 06/25/23 08/05/23 History famotidine 40 mg tablet 40 mg PO DAILYBB 06/25/23 08/05/23 History fluticasone propionate 50 2 spray intranasal DAILY 06/25/23 08/05/23 History mcg/actuation nasal spray,suspension lorazepam 1 mg tablet 1 mg PO Q6H PRN Anxiety 06/25/23 08/05/23 History losartan 50 mg tablet 50 mg PO DAILY 06/25/23 08/05/23 History furosemide 40 mg tablet (Lasix) 40 mg PO DAILY #30 tabs 07/21/23 08/05/23 Rx Past Med/Surg History Medical History Gout Cutaneous vasculitis Urinary retention CAD (coronary artery disease) s/p stent to RCA x 1 2009 Neuropathy LEFT LOWER LEG/FOOT. PT STATES HE HAS DROP FOOT. BPH (benign prostatic hyperplasia) Osteoarthritis Diabetes mellitus, type 2 Chronic obstructive pulmonary disease very rare albuterol use. Daily Advair, stable. Sleep apnea PT HAS CPAP DEVICE, DOES NOT CURRENTLY WEAR. Transient ischemic attack (TIA) JANUARY 2018. NO RESIDUAL. Hypertension Hyperlipidemia Surgical History History of carotid endarterectomy LEFT. 2017 in [place] History of tonsillectomy History of colonoscopy History of cholecystectomy Fusion of spine LUMBAR History of cardiac cath 2009. STENT X1. [facility] Family History Other Family history non-contributory Social History Smoking Status: Former smoker Tobacco Type: Cigarettes Cigarettes Per Day: 1 pack; Second Hand Exposure: No; Do You Dip or Chew Tobacco: No; Hx Alcohol Use: No Hx Substance Use: No Preferred Language: Portuguese Communication Ability: Effective Lamp Tester And Inspector Required: No Beliefs That Will Affect Care: None Current Living Situation: Spouse Current Living Situation Comment: Currently living with daughter Feels Safe at Home: Yes Safety Concerns: Feels Safe At This Time Assistive Devices: Cane and Walker Review of Systems Review of Systems: The patient denies chest pain, palpitations, lower extremity swelling, sore throat, fevers, chills, sweats, nausea, vomiting, diarrhea , constipation, abdominal pain, pelvic pain, blood in urine or stool, dysuria, urinary frequency or urgency, loss of consciousness, rash, abnormal bruising or bleeding, focal weakness, numbness or tingling in arms or legs, generalized arthralgias or myalgias, back or neck pain, or night sweats. The review of systems is otherwise negative other than for that already noted above, and at least 10 systems have been reviewed. Physical Exam Physical Exam: The patient is awake, alert and oriented 3, well developed and well nourished, normocephalic and atraumatic, lying in bed and in no acute distress. HEENT--PERRL, EOMI, mucous membranes and oropharynx dry. Neck--supple. No JVD. No bruits. Thyroid normal, trachea midline, no adenopathy. Heart--normal S1 and S2. No murmurs, rubs or gallops. Lungs--coarse breath sounds bilaterally, no respiratory distress, no accessory muscle use. Abdomen--normal bowel sounds and soft. Nontender. Nondistended Extremities--no cyanosis or clubbing. 1+ bilateral pretibial pitting edema. Dermatologic--normal skin turgor, normal color, no abnormal lymph nodes, no rash. Neurologic--cranial nerves II through XII grossly intact. Rheumatologic--normal range of motion. Psychiatric--normal affect. Results & Data Results & Data Vital Signs (Past 12 Hours) Vital Signs Temp Pulse Pulse Resp BP BP Pulse Ox 08/05/23 00:20 83 16 145/79 H 96 08/04/23 21:53 85 08/04/23 21:43 77 18 130/74 92 08/04/23 18:14 37 C 69 22 113/69 95 O2 Del Method 08/05/23 00:20 Room Air 08/04/23 21:53 08/04/23 21:43 Room Air 08/04/23 18:14 Room Air Laboratory Results Laboratory Results WBC 2.34 K/ul (4.8-10.8) L 08/04/23 19:40 RBC 3.71 M/uL (4.70-6.10) L 08/04/23 19:40 Hgb 10.2 g/dl (14.0-18.0) L 08/04/23 19:40 Hct 34.4 % (42.0-52.0) L 08/04/23 19:40 MCV 92.7 fL (80.0-100.0) 08/04/23 19:40 MCH 27.5 pg (25.0-34.0) 08/04/23 19:40 MCHC 29.7 g/dL (32.0-36.0) L 08/04/23 19:40 RDW Std Deviation 59.5 fL (36.4-46.3) H 08/04/23 19:40 RDW Coeff of Reji 17.3 % (11.5-14.5) H 08/04/23 19:40 Plt Count 225 K/uL (130-400) 08/04/23 19:40 MPV 10.2 fL (9.4-12.4) 08/04/23 19:40 Reticulocyte % (Auto) 2.3 % (0.5-2.0) H 08/04/23 19:40 Reticulocyte # 0.08 10^6/uL (0.02-0.10) 08/04/23 19:40 Neutrophils % (Manual) 8 % 08/04/23 19:40 Lymphocytes % (Manual) 16 % 08/04/23 19:40 Monocytes % (Manual) 25 % 08/04/23 19:40 Eosinophils % (Manual) 5 % 08/04/23 19:40 Basophils % (Manual) 3 % 08/04/23 19:40 Neutrophils # (Manual) 0.19 K/uL (1.40-6.50) L 08/04/23 19:40 Total Absolute Neuts 0.19 K/uL (1.4-6.5) L* 08/04/23 19:40 Lymphocytes # (Manual) 0.37 K/uL (1.2-3.4) L 08/04/23 19:40 Total Abs Lymphocytes 1.38 K/uL (1.2-3.4) 08/04/23 19:40 Monocytes # (Manual) 0.59 K/uL (0.11-0.59) 08/04/23 19:40 Eosinophils # (Manual) 0.12 K/uL (0-0.50) 08/04/23 19:40 Basophils # (Manual) 0.07 K/uL (0-0.2) 08/04/23 19:40 Large Granular Lymphs 43 % 08/04/23 19:40 # Lrg Granular Lymphs 1.01 K/uL 08/04/23 19:40 Ovalocytes 1+ 08/04/23 19:40 Sodium 137 mmol/L (136-145) 08/04/23 19:40 Potassium 5.0 mmol/L (3.5-5.1) 08/04/23 19:40 Chloride 101 mmol/L (98-107) 08/04/23 19:40 Carbon Dioxide 31 mmol/L (21-32) 08/04/23 19:40 Anion Gap 5 (3-11) 08/04/23 19:40 BUN 57 mg/dl (6-23) H 08/04/23 19:40 Creatinine 2.62 mg/dl (0.6-1.4) H 08/04/23 19:40 Est Cr Clr Drug Dosing Not Reportable 08/04/23 19:40 Est GFR ( Amer) 24.4 ml/min 08/04/23 19:40 Est GFR (Non-Af Amer) 21.0 ml/min 08/04/23 19:40 BUN/Creatinine Ratio 21.8 (10-20) H 08/04/23 19:40 Glucose 147 mg/dl (70-99(Fasting)) H 08/04/23 19:40 Lactate 1.9 mmol/L (0.4-2.0) 08/04/23 22:41 Calcium 9.6 mg/dl (8.6-10.3) 08/04/23 19:40 Magnesium 1.8 mg/dl (1.7-2.4) 08/04/23 19:40 Total Bilirubin 1.0 mg/dl (0.2-1.0) 08/04/23 19:40 AST 13 U/L (13-39) 08/04/23 19:40 ALT 15 U/L (7-52) 08/04/23 19:40 Alkaline Phosphatase 76 U/L (34-104) 08/04/23 19:40 Troponin I High Sens 9.0 pg/ml (0-20) 08/04/23 19:40 B-Natriuretic Peptide 345 pg/ml (0-100) H 08/04/23 19:40 Total Protein 7.4 gm/dl (6.0-8.3) 08/04/23 19:40 Albumin 3.7 gm/dl (3.4-5.0) 08/04/23 19:40 Globulin 3.7 gm/dl (2.5-4.0) 08/04/23 19:40 Albumin/Globulin Ratio 1.0 (0.9-2) 08/04/23 19:40 Procalcitonin 0.12 ng/ml (0-0.5) 08/04/23 19:40 Nasal Screen MRSA (PCR) Positive (Negative) A 08/05/23 01: Adenovirus (PCR) Not Detected (NotDetected) 08/04/23 19:40 B. pertussis DNA (PCR) Not Detected (NotDetected) 08/04/23 19:40 B.parapertussis DNA PCR Not Detected (NotDetected) 08/04/23 19:40 C. pneumoniae DNA (PCR) Not Detected (NotDetected) 08/04/23 19:40 Coronavirus OC43 (PCR) Not Detected (NotDetected) 08/04/23 19:40 Coronavirus HKU1 (PCR) Not Detected (NotDetected) 08/04/23 19:40 Coronavirus 229E (PCR) Not Detected (NotDetected) 08/04/23 19:40 SARS-CoV-2 (PCR) Not Detected (NotDetected) 08/04/23 19:40 Coronavirus NL63 (PCR) Not Detected (NotDetected) 08/04/23 19:40 Human Metapneumovir PCR Not Detected (NotDetected) 08/04/23 19:40 Influenza Type A (PCR) Not Detected (NotDetected) 08/04/23 19:40 Influenza Type B (PCR) Not Detected (NotDetected) 08/04/23 19:40 M. pneumoniae (PCR) Not Detected (NotDetected) 08/04/23 19:40 Parainfluenza 1 (PCR) Not Detected (NotDetected) 08/04/23 19:40 Parainfluenza 2 (PCR) Not Detected (NotDetected) 08/04/23 19:40 Parainfluenza 3 (PCR) Not Detected (NotDetected) 08/04/23 19:40 Parainfluenza 4 (PCR) Not Detected (NotDetected) 08/04/23 19:40 RSV (PCR) DETECTED (NotDetected) A* 08/04/23 19:40 Entero/Rhino (PCR) Not Detected (NotDetected) 08/04/23 19:40 Impressions Chest X-Ray 08/04/23 18:15 SINGLE VIEW CHEST CLINICAL HISTORY: Dyspnea FINDINGS: A PA chest radiograph is compared to study dated 07/21/2023 and 12/11/2017. Correlation is made with CT angiogram of the neck dated 06/11/2019. The heart is enlarged noting atherosclerotic calcification of the thoracic aorta. The pulmonary vasculature is noncongested. Emphysema with a large left upper lobe bullae is unchanged from previous. There is bibasilar scarring/atelectasis. No superimposed airspace consolidation or pleural effusion is identified. Large calcifications projecting over the left hemithorax are unchanged from prior examinations. No pneumothorax is seen. The skeletal structures are osteopenic. The bony thorax is grossly intact. IMPRESSION: Cardiomegaly, emphysema, and chronic parenchymal changes as above with no acute cardiopulmonary abnormality identified. ACT 112: Negative or not required by law. Electronically signed by: Jhon Sun M.D. 08/04/2023 7:[address] 08/04/23 21:54 Exam(s): CT CHEST Without Contrast EXAM: CT Chest Without Intravenous Contrast CLINICAL HISTORY: Reason for exam: cough, sob, neutropenic. TECHNIQUE: Axial computed tomography images of the chest without intravenous contrast. CTDI is 17.9 mGy and DLP is 680.29 mGy-cm. Automated exposure control was utilized for the study. A dose lowering technique was utilized adhering to the principles of ALARA. COMPARISON: No relevant prior studies available. FINDINGS: Lungs: Large bulla in the LEFT upper lobe, measuring 18.7 x 10.6 cm. Peripheral nodular calcified density along the periphery of the bulla. This is identified on CXR from same day. No consolidation. Pleural space: Unremarkable. No lobar consolidation, pleural effusion, or pneumothorax. Heart: Unremarkable. No cardiomegaly. No significant pericardial effusion. No significant coronary artery calcifications. Bones/joints: Degenerative changes of the spine. No acute fracture. No dislocation. Soft tissues: Unremarkable. Vasculature: Atherosclerotic changes of the aorta. No thoracic aortic aneurysm. Lymph nodes: Unremarkable. No enlarged lymph nodes. IMPRESSION: 1. No lobar consolidation, pleural effusion, or pneumothorax. 2. Large bulla in the LEFT upper lobe, measuring 18.7 x 10.6 cm. Peripheral nodular calcified density along the periphery of the bulla. This is identified on CXR from same day. Electronically signed by: Adolph Godinez MD 08/04/23 22:50 PM Code Status & VTE Plan Code Status Full code PG Care Time/CCT Total # of Minutes Spent Total Time Spent with Patient: Total time spent is greater than 50% in coordination of care (as documented) at patient's floor/unit and/or counseling patient: Coding Level of Care Code 01039 INT INP/OBS CARE 3/75MIN Diagnoses Acute respiratory failure with hypoxia J96.01 COPD with acute exacerbation J44.1 Neutropenia D70.9 RSV (respiratory syncytial virus pneumonia) J12.1 Urethral erosion N36.8 Afib I48.91
[2023-08-05 00:35] LABS: Reticulocyte % 2.3 % (0.5-2.0); Reticulocytes # 0.08 10^6/uL (0.02-0.10)
[2023-08-05] MEDS ORDERED: CARBOHYDRATES FOR HYPOGLYCEMIA PO PRN (01:08)
[2023-08-05] MEDS ORDERED: DEXTROSE 50% 50 ML SYRINGE IV PRN (01:08)
[2023-08-05] MEDS ORDERED: ALBUT/IPRATROP 3MG/0.5MG NEB 3 ML VIAL NEB PRN (01:08)
[2023-08-05] MEDS ORDERED: ALBUTEROL HFA 8 GM INHALER INH PRN (01:08)
[2023-08-05] MEDS ORDERED: GLUCAGON FOR INJ 1 MG VIAL SQ PRN (01:08)
[2023-08-05] MEDS ORDERED: GLUCOSE 10 TAB/TUBE PO PRN (01:08)
[2023-08-05] MEDS ORDERED: LORazepam 1 MG TAB PO PRN (01:08)
[2023-08-05] MEDS ORDERED: ACETAMINOPHEN 325 MG TAB PO PRN (01:08)
[2023-08-05] MEDS ORDERED: ONDANSETRON INJ 2 MG/ML 2 ML VIAL IV PRN (01:08)
[2023-08-05] MEDS ORDERED: GLUCOSE 40% GEL 15 GM TUBE PO PRN (01:08)
[2023-08-05] MEDS ORDERED: Patient's HEIGHT &/or WEIGHT Needed STA (01:41)
[2023-08-05 06:44] LABS: Albumin Level 3.2 gm/dl (3.4-5.0); BUN Creatinine Ratio 23.1 (10-20); Bilirubin,Total 0.8 mg/dl (0.2-1.0); Calcium 8.9 mg/dl (8.6-10.3); Creatinine Clr Calc Pharmacy 22.7 ml/min; Est GFR (African American) 24.6 ml/min; Est GFR (Non-African American) 21.2 ml/min; Globulin 3.1 gm/dl (2.5-4.0); Potassium 5.2 mmol/L (3.5-5.1); Total Protein 6.3 gm/dl (6.0-8.3)
[2023-08-05 07:02] LABS: Hematocrit (blood only) 29.7 % (42.0-52.0); Hemoglobin 9.2 g/dl (14.0-18.0); Mean Corpuscular Hemoglobin 27.9 pg (25.0-34.0); Mean Platelet Volume 10.3 fL (9.4-12.4); Platelet Count 183 K/uL (130-400); RDW Coefficient of Variation 17.1 % (11.5-14.5); RDW Standard Deviation 56.4 fL (36.4-46.3)
[2023-08-05 07:04] LABS: ALC (manual) 0.58 K/uL (1.2-3.4); ANC (manual) 0.04 K/uL (1.4-6.5); Basophils # (manual) 0.02 K/uL (0-0.2); Basophils % (manual) 3 %; Eosinophils # (manual) 0.01 K/uL (0-0.50); Eosinophils % (manual) 1 %; Large Granular Lymph # (manua 0.33 K/uL; Large Granular Lymph % (manual) 42 %; Lymphocytes # (manual) 0.25 K/uL (1.2-3.4); Lymphocytes % (manual) 32 %; Monocytes # (manual) 0.13 K/uL (0.11-0.59); Monocytes % (manual) 17 %; Neutrophils # (manual) 0.04 K/uL (1.40-6.50); Neutrophils % (manual) 5 %; White Blood Count 0.78 K/ul (4.8-10.8)
[2023-08-05] MEDS: FAMOTIDINE 40 MG TABLET PO SCH (07:39)
[2023-08-05 07:44] LABS: Estimated Average Glucose 131 mg/dl; Hemoglobin A1C 6.2 % (4.5-5.6)
--- NOTE | 2023-08-05 08:19 | Electrocardiogram Report ---
Test Reason : Blood Pressure : / mmHG Vent. Rate : 079 BPM Atrial Rate : 000 BPM P-R Int : 000 ms QRS Dur : 072 ms QT Int : 372 ms P-R-T Axes : 000 085 025 degrees QTc Int : 426 ms Atrial fibrillation Low voltage QRS Abnormal ECG When compared with ECG of 19-JUL-2023 09:56, QRS axis Shifted right Criteria for Septal infarct are no longer Present Confirmed by Clement Yo ([id number]) on 08/05/2023 8:19:11 AM Referred By: REFERRED SELF Confirmed By:Clement Yo
--- NOTE | 2023-08-05 08:55 | Hospitalist Progress Note ---
Date of Service August 05, 2023 Assessment & Plan (1) Acute respiratory failure with hypoxia: Plan: Acute respiratory failure with hypoxia/RSV pneumonia/COPD exacerbation/neutropenia with ANC 190- DuoNeb Solu-Medrol 40 mg IV every 8 hours Duonebs every 4 hours while awake and every 2 hours when necessary. Zyvox 600 mg IV every 12 hours Cefepime 2 g IV every 12 hours this is to cover MRSA and gram negative bronchitis And CT scan shows an 18 x 10 cm bleb which the patient has had for some time and is not following with pulmonary medicine at this time Guaifenesin extended release 12 mg p.o. every 12 hours Neutropenic precautions. Patient's ANC was normal 2 weeks ago. Likely secondary to RSV infection, RSV can have up to 11% neutropenic rate in children Nasal cannula oxygen, titrate to keep pulse ox around 90% (2) Neutropenia: Plan: Neutropenia may be from current infection could also be from medications as azithromycin which he was prescribed at his last discharge does have neutropenia as a side effect. Upon further questioning he gives a history that about 30 years ago he had low blood counts that his doctors gave him antibiotics for months by his report. After prolonged investigation including what he describes as a bone marrow biopsy they came to the conclusion that his bone marrow suppression was because of a medication which was stopped and then subsequently his bone marrow rebounded. The patient however cannot recall the name of that medication and even reliably with recall the name of the physician that treated him in an outside town After speaking with hematology oncology a peripheral smear has been ordered and then subsequent to that we will give him 2 doses of Neupogen to augment his neutropenic response to fight infection (3) CKD (chronic kidney disease), stage III: Plan: SAULO superimposed on CKD-3 Creatinine 2.62, with baseline 1.73 Hold lisinopril, hold any further furosemide, (4) Afib: Plan: Atrial fibrillation/CAD/hypertension- Continue apixaban, amlodipine, metoprolol succinate and clopidogrel Holding losartan due to acute kidney injury (5) Diabetes mellitus, type 2: Plan: Diabetes mellitus- Hold glipizide, Januvia Continue repaglinide Placed on Accu-Cheks with NovoLog [facility]pharmacy glycemic management consult (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 0.8 mg every morning, Follow urine culture and sensitivity Admission and Anticipated Discharge Date Admission Date: August 05, 2023 Subjective Patient is in stable condition upon my evaluation only with mild respiratory distress which likely is his baseline given his COPD history. He is only requiring modest oxygen supplementation. Other concerns is neutropenia. Upon further questioning he gives a history that about 30 years ago he had low blood counts that his doctors gave him antibiotics for months by his report. After prolonged investigation including what he describes as a bone marrow biopsy they came to the conclusion that his bone marrow suppression was because of a medication which was stopped and then subsequently his bone marrow rebounded. The patient however cannot recall the name of that medication and even reliably with recall the name of the physician that treated him in an outside town Physical Exam Physical Exam: He has no oral mucosal membrane issues his lungs have decreased breath sounds at the left lung field no overt wheezes cardiac exam is regular with a systolic murmur his extremities are without petechia or skin changes Results & Data Results & Data Vital Signs (Past 12 Hours) Vital Signs Temp Pulse Pulse Resp BP BP Pulse Ox 08/05/23 08:00 69 22 127/80 97 08/05/23 07:14 65 08/05/23 07:00 156/83 H 08/05/23 07:00 67 20 08/05/23 05:00 66 22 08/05/23 05:00 126/73 08/05/23 04:00 73 22 08/05/23 03:01 80 18 08/05/23 02:03 08/05/23 02:03 99.1 F 78 22 127/71 94 08/05/23 02:00 127/71 08/05/23 02:00 79 20 08/05/23 01:42 70 16 123/61 95 08/05/23 01:36 73 08/05/23 00:20 83 16 145/79 H 96 08/04/23 21:53 85 08/04/23 21:43 77 18 130/74 92 O2 Del Method O2 Flow Rate 08/05/23 08:00 Nasal Cannula 1 08/05/23 07:14 08/05/23 07:00 08/05/23 07:00 08/05/23 05:00 08/05/23 05:00 08/05/23 04:00 08/05/23 03:01 08/05/23 02:03 Nasal Cannula 2 08/05/23 02:03 Nasal Cannula 2 08/05/23 02:00 08/05/23 02:00 08/05/23 01:42 Nasal Cannula 2 08/05/23 01:36 08/05/23 00:20 Room Air 08/04/23 21:53 08/04/23 21:43 Room Air Laboratory Results Reviewed CBC with differential including absolute neutrophil count Reviewed chemistry PG Care Time/CCT Total # of Minutes Spent Total Time Spent with Patient: Total time spent is greater than 50% in coordination of care (as documented) at patient's floor/unit and/or counseling patient: Coding Level of Care Code 72732 SUB INP/OBS CARE 3/50MIN Diagnoses Acute respiratory failure with hypoxia J96.01 Neutropenia D70.9 Neutropenia type: unspecified CKD (chronic kidney disease), stage III N18.30 Afib I48.91 Diabetes mellitus, type 2 E11.9 Urethral erosion N36.8 (2) Neutropenia Neutropenia type: unspecified Qualified Code(s): D70.9 - Neutropenia, unspecified
[2023-08-05] MEDS: APIXABAN 2.5 MG TAB PO SCH ×2 (09:17→20:44)
[2023-08-05] MEDS: ATORVASTATIN 40 MG TAB PO SCH (09:17)
[2023-08-05] MEDS: methylPREDNISolone 40 MG in SYRINGE 0 ML IV SCH ×3 (09:17→23:22)
[2023-08-05] MEDS: CLOPIDOGREL BISULFATE 75 MG TAB PO SCH (09:17)
[2023-08-05] MEDS: METOPROLOL SUCC 50MG EXT REL TAB PO SCH (09:18)
[2023-08-05] MEDS: TAMSULOSIN HCL 0.4 MG CAP PO SCH (09:18)
[2023-08-05] MEDS: amLODIPine BESYLATE 5 MG TAB PO SCH (09:19)
[2023-08-05] MEDS: allopurinoL 300 MG TAB PO SCH (09:19)
[2023-08-05] MEDS: busPIRone 5 MG TAB PO SCH ×2 (09:20→20:44)
[2023-08-05] MEDS: guaiFENesin 600 MG TABCR PO SCH ×2 (09:20→20:44)
[2023-08-05] MEDS: FLUTICASONE/VILANTEROL 200/25MCG 14 PUFFS/INHALER INH SCH (09:21)
[2023-08-05] MEDS: FLUTICASONE PROPIONATE NA SPR 16 GM BTL NAE SCH (09:22)
[2023-08-05] MEDS: INSULIN ASPART PER UNIT CHARGE SC SCH ×4 (09:39→20:41)
[2023-08-05] MEDS ORDERED: PHARMACY GLYCEMIC MGMT CONSULT PRN (10:18)
[2023-08-05] MEDS ORDERED: LANTUS PER UNIT CHARGE SC STA (10:27)
[2023-08-05] MEDS: LINEZOLID 600 MG/300 ML BAG IV SCH ×2 (12:34→23:23)
[2023-08-05] MEDS: CEFEPIME 1,000 MG in SYRINGE 0 ML IV SCH ×2 (13:45→23:23)
--- NOTE | 2023-08-05 14:22 | Pharmacy Report ---
Pharmacy Glycemic Short Note 2 - Date of Service August 05, 2023 - Glycemic Short BSG Results (Last 24 hours): 08/04/23 08/05/23 08/05/23 19:40 05:30 07:41 Glucose 147 H 341 H* POC Glucose 335 H* 08/05/23 12:08 Glucose POC Glucose 280 H OUTPATIENT ANTIDIABETIC REGIMEN: * glipizide 10mg BID * Januvia 100mg QAM * repaglinide 0.5mg BIDM * HbA1c 6.2% 08/05/23 ASSESSMENT: * Rao is a 88 YOM admitted with RSV/COPD exacerbation/CHF and a history of T2DM. Pharmacy has been consulted for glycemic management while inpatient. Rao is known to the glycemic service. * Hyperglycemic this AM, currently receiving cefepime/linezolid as well as IV methylprednisolone 40mg q8H * Basal insulin started at ~0.2 units/kg at lunchtime, will add basal scale at bedtime based on BSG allowing for up to ~0.4 units/kg with steroids. * Novolog initiated at parameters effective during previous admissions. PLAN FOR INPATIENT GLYCEMIC CONTROL: * Hold outpatient oral diabetes medications * Basal insulin * Lantus 20 units SQ daily * Lantus 0-15 units SQ HS based on BSG (see eMAR for additional details) * Bolus insulin * NovoLog per scale ACHS or Q6hrs while NPO * Goal Range: Low 110 mg/dL - High 140 mg/dL * Correction Factor: 15 mg/dL/unit * Nutritional / Prandial insulin per carb ratio of 1 unit per 5 grams CHO consumed
[2023-08-05] MEDS ORDERED: FILGRASTIM 480 MCG/1.6 ML VIAL SC SCH (16:30)
[2023-08-05] MEDS: FILGRASTIM 480 MCG/1.6 ML VIAL SC SCH (17:42)
[2023-08-05] MEDS: LANTUS PER UNIT CHARGE SC SCH (20:41)
[2023-08-05 22:58] LABS: Appearance Urine Clear (Clear); Bacteria Urine Automated Negative (Negative); Bilirubin Urine Negative (Negative); Blood Urine Negative (Negative); Color Urine Yellow; Glucose Urine UA Negative (Negative); Ketones Urine Negative (Negative); Leukocyte Esterase Urine Trace (Negative); Nitrite Urine Negative (Negative); Protein Urine Trace (Negative); RBC Urine Automated 0-4 /hpf (0-4); Specific Gravity Urine 1.013 (1.000-1.030); Urobilinogen Urine Negative (Negative)
[2023-08-06] MEDS: FAMOTIDINE 40 MG TABLET PO SCH (05:44)
[2023-08-06 07:05] LABS: BUN Creatinine Ratio 27.3 (10-20); Bilirubin,Total 0.7 mg/dl (0.2-1.0); Calcium 8.9 mg/dl (8.6-10.3); Creatinine Clr Calc Pharmacy 23.4 ml/min; Est GFR (African American) 25.4 ml/min; Est GFR (Non-African American) 21.9 ml/min; Globulin 3.1 gm/dl (2.5-4.0); Magnesium 1.6 mg/dl (1.7-2.4); Potassium 4.6 mmol/L (3.5-5.1); Total Protein 6.1 gm/dl (6.0-8.3)
[2023-08-06 07:17] LABS: Hematocrit (blood only) 27.7 % (42.0-52.0); Hemoglobin 8.9 g/dl (14.0-18.0); Mean Corpuscular Hgb Conc 32.1 g/dL (32.0-36.0); Mean Corpuscular Volume 87.1 fL (80.0-100.0); Platelet Count 178 K/uL (130-400); RDW Coefficient of Variation 16.3 % (11.5-14.5); RDW Standard Deviation 52.7 fL (36.4-46.3); Red Blood Count 3.18 M/uL (4.70-6.10); White Blood Count 1.26 K/ul (4.8-10.8)
[2023-08-06 07:35] LABS: Poikilocytosis Present; Polychromasia 1+
[2023-08-06 07:36] LABS: Lymphocytes # (auto) 0.53 K/uL (1.20-3.40); Lymphocytes % (auto) 42.1 %; Monocytes # (auto) 0.65 K/uL (0.11-0.59); Monocytes % (auto) 51.6 %; Neutrophils # (auto) 0.08 K/uL (1.40-6.50); Neutrophils % (auto) 6.3 %
[2023-08-06] MEDS: methylPREDNISolone 40 MG in SYRINGE 0 ML IV SCH ×3 (07:43→23:46)
[2023-08-06 08:08] LABS: Folate (Folic Acid),Ser orPlas 14.73 ng/ml (>5.38)
[2023-08-06] MEDS: INSULIN ASPART PER UNIT CHARGE SC SCH ×4 (08:58→20:33)
[2023-08-06] MEDS ORDERED: LANTUS PER UNIT CHARGE SC SCH (09:00)
[2023-08-06] MEDS: TAMSULOSIN HCL 0.4 MG CAP PO SCH (09:02)
[2023-08-06] MEDS: FLUTICASONE/VILANTEROL 200/25MCG 14 PUFFS/INHALER INH SCH (09:03)
[2023-08-06] MEDS: METOPROLOL SUCC 50MG EXT REL TAB PO SCH (09:04)
[2023-08-06] MEDS: CLOPIDOGREL BISULFATE 75 MG TAB PO SCH (09:04)
[2023-08-06] MEDS: guaiFENesin 600 MG TABCR PO SCH ×2 (09:04→20:20)
[2023-08-06] MEDS: busPIRone 5 MG TAB PO SCH ×2 (09:04→20:19)
[2023-08-06] MEDS: ATORVASTATIN 40 MG TAB PO SCH (09:05)
[2023-08-06] MEDS: allopurinoL 300 MG TAB PO SCH (09:05)
[2023-08-06] MEDS: amLODIPine BESYLATE 5 MG TAB PO SCH (09:05)
[2023-08-06] MEDS: APIXABAN 2.5 MG TAB PO SCH ×2 (09:05→20:19)
[2023-08-06] MEDS: FLUTICASONE PROPIONATE NA SPR 16 GM BTL NAE SCH (09:06)
[2023-08-06] MEDS ORDERED: MAGNESIUM SULFATE / D5W 1 GM/100 ML BAG IV ONE (09:09)
--- NOTE | 2023-08-06 09:12 | Hospitalist Progress Note ---
Date of Service August 06, 2023 Assessment & Plan (1) Acute respiratory failure with hypoxia: Plan: Acute respiratory failure with hypoxia/RSV bronchitis or pneumonitis/COPD exacerbation/neutropenia with ANC 190- DuoNeb Solu-Medrol 40 mg IV every 8 hours, will start to taper in am Duonebs every 4 hours while awake and every 2 hours when necessary. Zyvox 600 mg IV every 12 hours Cefepime 2 g IV every 12 hours this is to cover MRSA and gram negative bronchitis And CT scan shows an 18 x 10 cm bleb which the patient has had for some time and is not following with pulmonary medicine at this time Guaifenesin extended release 12 mg p.o. every 12 hours Neutropenic precautions. Patient's ANC was normal 2 weeks ago. Likely secondary to RSV infection, RSV can have up to 11% neutropenic rate in children Nasal cannula oxygen, titrate to keep pulse ox around 90% (2) Neutropenia: Plan: Neutropenia may be from current infection could also be from medications as azithromycin which he was prescribed at his last discharge does have neutropenia as a side effect. Upon further questioning he gives a history that about 30 years ago he had low blood counts that his doctors gave him antibiotics for months by his report. After prolonged investigation including what he describes as a bone marrow biopsy they came to the conclusion that his bone marrow suppression was because of a medication which was stopped and then subsequently his bone marrow rebounded. The patient however cannot recall the name of that medication and even reliably with recall the name of the physician that treated him in an outside town After speaking with hematology oncology a peripheral smear has been ordered and then subsequent to that we will give him 2 doses of Neupogen to augment his neutropenic response to fight infection broad spectrum antibiotic and neutropenic precautions also with anemia,normal B12 folate tsh normal in May as well as am cortisol (3) CKD (chronic kidney disease), stage III: Plan: SAULO superimposed on CKD-3 Creatinine 2.62, with baseline 1.73 Hold lisinopril, hold any further furosemide, (4) Afib: Plan: Atrial fibrillation/CAD/hypertension- Continue apixaban, amlodipine, metoprolol succinate and clopidogrel Holding losartan due to acute kidney injury (5) Diabetes mellitus, type 2: Plan: Diabetes mellitus- Hold glipizide, Januvia Continue repaglinide Placed on Accu-Cheks with NovoLog [facility] glycemic management consult (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 0.8 mg every morning, Follow urine culture and sensitivity Admission and Anticipated Discharge Date Admission Date: August 05, 2023 Subjective pt states he feels much improved, less short of breath less cough appetitie is good Physical Exam Physical Exam: lungs with diminished breath sounds to the left chest, no wheezes Results & Data Results & Data Vital Signs (Past 12 Hours) Vital Signs Temp Pulse Resp BP Pulse Ox O2 Del Method O2 Flow Rate 08/06/23 07:54 97.5 F L 67 16 147/62 H 95 Nasal Cannula 1 08/06/23 03:10 97.7 F 71 20 144/70 H 90 Room Air 08/05/23 23:29 97.9 F 70 18 145/71 H 90 Room Air Laboratory Results reviewed cbc with diff reviewed comprehensive metabolic panel PG Care Time/CCT Total # of Minutes Spent Total Time Spent with Patient: Total time spent is greater than 50% in coordination of care (as documented) at patient's floor/unit and/or counseling patient: Coding Level of Care Code 55601 SUB INP/OBS CARE 3/50MIN Diagnoses Acute respiratory failure with hypoxia J96.01 Neutropenia D70.9 Neutropenia type: unspecified CKD (chronic kidney disease), stage III N18.30 Afib I48.91 Diabetes mellitus, type 2 E11.9 Urethral erosion N36.8 (2) Neutropenia Neutropenia type: unspecified Qualified Code(s): D70.9 - Neutropenia, unspecified
[2023-08-06] MEDS: CEFEPIME 1,000 MG in SYRINGE 0 ML IV SCH ×2 (13:15→23:46)
--- NOTE | 2023-08-06 13:17 | Pharmacy Report ---
Pharmacy Glycemic Short Note 2 - Date of Service August 06, 2023 - Glycemic Short BSG Results (Last 24 hours): 08/05/23 08/05/23 08/06/23 17:20 20:21 06:04 Glucose 281 H POC Glucose 108 H 137 H 08/06/23 08/06/23 08:13 12:21 Glucose POC Glucose 272 H 196 H OUTPATIENT ANTIDIABETIC REGIMEN: * glipizide 10mg BID * Januvia 100mg QAM * repaglinide 0.5mg BIDM HbA1c 6.2% 08/05/23 ASSESSMENT: 08/06/23: * BSGs trended down nicely yesterday w/ elevated fasting BSG this morning * Received 53 units of insulin (20 units of basal and 33 units of prandial/correctional bolus) * Continues on methylprednisolone 40 mg IV q8h * Anticipating significant reduction in insulin needs once steroids tapered/discontinued * Remains on broad spectrum antibiotics * Minimal changes to glycemic regimen today 08/05/23: * Rao is a 88 YOM admitted with RSV/COPD exacerbation/CHF and a history of T2DM. Pharmacy has been consulted for glycemic management while inpatient. Rao is known to the glycemic service. * Hyperglycemic this AM, currently receiving cefepime/linezolid as well as IV methylprednisolone 40mg q8H * Basal insulin started at ~0.2 units/kg at lunchtime, will add basal scale at bedtime based on BSG allowing for up to ~0.4 units/kg with steroids. * Novolog initiated at parameters effective during previous admissions. PLAN FOR INPATIENT GLYCEMIC CONTROL: * Hold outpatient oral diabetes medications * Basal insulin * Lantus 20 units SQ daily * Lantus 5-15 units SQ HS based on BSG (see eMAR for additional details) * Bolus insulin * NovoLog per scale ACHS or Q6hrs while NPO * Goal Range: Low 110 mg/dL - High 140 mg/dL * Correction Factor: 15 mg/dL/unit * Nutritional / Prandial insulin per carb ratio of 1 unit per 5 grams CHO consumed
[2023-08-06] MEDS: LINEZOLID 600 MG/300 ML BAG IV SCH ×2 (13:20→23:45)
[2023-08-06] MEDS: FILGRASTIM 480 MCG/1.6 ML VIAL SC SCH (18:12)
[2023-08-06] MEDS: LANTUS PER UNIT CHARGE SC SCH (20:32)
[2023-08-07] MEDS: FAMOTIDINE 40 MG TABLET PO SCH (05:54)
[2023-08-07 06:50] LABS: BUN Creatinine Ratio 27.5 (10-20); Bilirubin,Total 0.7 mg/dl (0.2-1.0); Calcium 9.1 mg/dl (8.6-10.3); Creatinine Clr Calc Pharmacy 23.3 ml/min; Est GFR (African American) 24.4 ml/min; Magnesium 1.9 mg/dl (1.7-2.4); Potassium 4.7 mmol/L (3.5-5.1)
[2023-08-07 07:07] LABS: Basophils # (auto) 0.01 K/uL (0.00-0.20); Basophils % (auto) 0.5 %; Hematocrit (blood only) 30.1 % (42.0-52.0); Hemoglobin 9.1 g/dl (14.0-18.0); Immature Granulocytes # (auto) 0.01 K/uL (0.01-0.20); Immature Granulocytes % (auto) 0.5 %; Lymphocytes % (auto) 31.8 %; Mean Corpuscular Hemoglobin 27.6 pg (25.0-34.0); Mean Corpuscular Hgb Conc 30.2 g/dL (32.0-36.0); Mean Corpuscular Volume 91.2 fL (80.0-100.0); Mean Platelet Volume 10.2 fL (9.4-12.4); Monocytes % (auto) 40.9 %; Neutrophils # (auto) 0.58 K/uL (1.40-6.50); Neutrophils % (auto) 26.3 %; Nucleated RBC # (auto) 0.03 K/uL (0.00-0.12); Nucleated RBC % (auto) 1.4 %; Platelet Count 179 K/uL (130-400); RDW Coefficient of Variation 16.3 % (11.5-14.5); RDW Standard Deviation 54.3 fL (36.4-46.3)
[2023-08-07 07:08] LABS: Dohle Bodies 2+; Ovalocytes 1+; Polychromasia 1+; Tear Drop Cells 1+
[2023-08-07] MEDS: ATORVASTATIN 40 MG TAB PO SCH (08:04)
[2023-08-07] MEDS: APIXABAN 2.5 MG TAB PO SCH ×2 (08:04→20:20)
[2023-08-07] MEDS: CLOPIDOGREL BISULFATE 75 MG TAB PO SCH (08:04)
[2023-08-07] MEDS: METOPROLOL SUCC 50MG EXT REL TAB PO SCH (08:04)
[2023-08-07] MEDS: guaiFENesin 600 MG TABCR PO SCH ×2 (08:05→20:19)
[2023-08-07] MEDS: busPIRone 5 MG TAB PO SCH ×2 (08:05→20:20)
[2023-08-07] MEDS: TAMSULOSIN HCL 0.4 MG CAP PO SCH (08:05)
[2023-08-07] MEDS: amLODIPine BESYLATE 5 MG TAB PO SCH (08:05)
[2023-08-07] MEDS: FLUTICASONE PROPIONATE NA SPR 16 GM BTL NAE SCH (08:06)
[2023-08-07] MEDS: FLUTICASONE/VILANTEROL 200/25MCG 14 PUFFS/INHALER INH SCH (08:06)
[2023-08-07] MEDS: allopurinoL 100 MG TAB PO SCH (08:11)
[2023-08-07] MEDS: predniSONE 20 MG TAB PO SCH (08:11)
[2023-08-07] MEDS: INSULIN ASPART PER UNIT CHARGE SC SCH ×4 (08:59→21:30)
[2023-08-07] MEDS ORDERED: LANTUS PER UNIT CHARGE SC SCH (09:00)
[2023-08-07] MEDS: CEFEPIME 1,000 MG in SYRINGE 0 ML IV SCH ×2 (12:15→23:19)
[2023-08-07] MEDS: LINEZOLID 600 MG/300 ML BAG IV SCH ×2 (12:15→23:19)
[2023-08-07 13:50] LABS: Ovalocytes 1+; Polychromasia 1+
[2023-08-07] MEDS ORDERED: FILGRASTIM 480 MCG/1.6 ML VIAL SC ONE (15:00)
--- NOTE | 2023-08-07 16:15 | Hospitalist Progress Note ---
Date of Service August 07, 2023 Assessment & Plan (1) Acute respiratory failure with hypoxia: Plan: Acute respiratory failure with hypoxia/RSV bronchitis or pneumonitis/COPD exacerbation/neutropenia with ANC 190- DuoNeb Solu-Medrol 40 mg IV every 8 hours,transitioned to prednisone 08/07/23 Duonebs every 4 hours while awake and every 2 hours when necessary. Zyvox 600 mg IV every 12 hours Cefepime 2 g IV every 12 hours this is to cover MRSA and gram negative br onchitis And CT scan shows an 18 x 10 cm bleb which the patient has had for some time and is not following with pulmonary medicine at this time Guaifenesin extended release 12 mg p.o. every 12 hours Neutropenic precautions. Patient's ANC was normal 2 weeks ago. Likely secondary to RSV infection, RSV can have up to 11% neutropenic rate in children Nasal cannula oxygen, titrate to keep pulse ox around 90% (2) Neutropenia: Plan: Neutropenia may be from current infection could also be from medications as azithromycin which he was prescribed at his last discharge does have neutropenia as a side effect. Upon further questioning he gives a history that about 30 years ago he had low blood counts that his doctors gave him antibiotics for months by his report. After prolonged investigation including what he describes as a bone marrow biopsy they came to the conclusion that his bone marrow suppression was because of a medication which was stopped and then subsequently his bone marrow rebounded. The patient however cannot recall the name of that medication and even reliably with recall the name of the physician that treated him in an outside town After speaking with hematology oncology a peripheral smear has been ordered and then subsequent to that we will give him 3 doses of Neupogen to augment his neutropenic response to fight infection have seen some response after second dose broad spectrum antibiotic and neutropenic precautions also with anemia,normal B12 folate tsh normal in May as well as am cortisol (3) CKD (chronic kidney disease), stage III: Plan: SAULO superimposed on CKD-3 Creatinine 2.62, with baseline 1.73 Hold lisinopril, hold any further furosemide, (4) Afib: Plan: Atrial fibrillation/CAD/hypertension- Continue apixaban, amlodipine, metoprolol succinate and clopidogrel Holding losartan due to acute kidney injury (5) Diabetes mellitus, type 2: Plan: Diabetes mellitus- Hold glipizide, Januvia Continue repaglinide Placed on Accu-Cheks with NovoLog [facility] glycemic management consult (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 0.8 mg every morning, Follow urine culture and sensitivity Admission and Anticipated Discharge Date Admission Date: August 05, 2023 Subjective pt states he feels much improved, less short of breath less cough appetitie is good Physical Exam Physical Exam: lungs with diminished breath sounds to the left chest, no wheezes Results & Data Results & Data Vital Signs (Past 12 Hours) Vital Signs Temp Pulse Pulse Resp BP Pulse Ox O2 Del Method 08/07/23 15:39 97.9 F 64 18 129/63 93 Room Air 08/07/23 11:32 97.7 F 65 18 113/61 94 Room Air 08/07/23 09:00 Nasal Cannula 08/07/23 08:18 97.7 F 61 18 162/67 H 97 Nasal Cannula 08/07/23 06:00 55 L O2 Flow Rate 08/07/23 15:39 08/07/23 11:32 08/07/23 09:00 1 08/07/23 08:18 1 08/07/23 06:00 Laboratory Results Reviewed CBC reviewed chemistry PG Care Time/CCT Total # of Minutes Spent Total Time Spent with Patient: Total time spent is greater than 50% in coordination of care (as documented) at patient's floor/unit and/or counseling patient: Coding Level of Care Code 89297 SUB INP/OBS CARE 3/50MIN Diagnoses Acute respiratory failure with hypoxia J96.01 Neutropenia D70.9 Neutropenia type: unspecified CKD (chronic kidney disease), stage III N18.30 Afib I48.91 Diabetes mellitus, type 2 E11.9 Urethral erosion N36.8 (2) Neutropenia Neutropenia type: unspecified Qualified Code(s): D70.9 - Neutropenia, unspecified
[2023-08-07] MEDS: LANTUS PER UNIT CHARGE SC SCH (21:31)
[2023-08-08] MEDS: FAMOTIDINE 40 MG TABLET PO SCH (05:31)
[2023-08-08 07:18] LABS: Calcium 8.9 mg/dl (8.6-10.3); Magnesium 1.7 mg/dl (1.7-2.4); Potassium 4.4 mmol/L (3.5-5.1)
[2023-08-08 07:20] LABS: Basophilic Stippling 1+; Basophils # (auto) 0.04 K/uL (0.00-0.20); Basophils % (auto) 0.4 %; Dohle Bodies 2+; Echinocytes 1+; Eosinophils # (auto) 0.01 K/uL (0.00-0.50); Eosinophils % (auto) 0.1 %; Hematocrit (blood only) 30.1 % (42.0-52.0); Hemoglobin 9.4 g/dl (14.0-18.0); Immature Granulocytes # (auto) 0.05 K/uL (0.01-0.20); Immature Granulocytes % (auto) 0.5 %; Lymphocytes # (auto) 1.21 K/uL (1.20-3.40); Mean Corpuscular Hemoglobin 27.7 pg (25.0-34.0); Mean Corpuscular Hgb Conc 31.2 g/dL (32.0-36.0); Mean Corpuscular Volume 88.8 fL (80.0-100.0); Mean Platelet Volume 9.9 fL (9.4-12.4); Monocytes # (auto) 1.64 K/uL (0.11-0.59); Monocytes % (auto) 17.6 %; Neutrophils # (auto) 6.36 K/uL (1.40-6.50); Neutrophils % (auto) 68.4 %; Nucleated RBC # (auto) 0.05 K/uL (0.00-0.12); Nucleated RBC % (auto) 0.5 %; Platelet Count 172 K/uL (130-400); Poikilocytosis Present; Polychromasia 1+; RDW Coefficient of Variation 16.4 % (11.5-14.5); RDW Standard Deviation 53.6 fL (36.4-46.3); Red Blood Count 3.39 M/uL (4.70-6.10); Tear Drop Cells 1+; White Blood Count 9.31 K/ul (4.8-10.8)
[2023-08-08 07:24] LABS: BUN Creatinine Ratio 25.3 (10-20); Creatinine Clr Calc Pharmacy 21.9 ml/min; Est GFR (African American) 22.8 ml/min; Est GFR (Non-African American) 19.7 ml/min
[2023-08-08] MEDS: APIXABAN 2.5 MG TAB PO SCH (08:36)
--- NOTE | 2023-08-08 08:36 | Pharmacy Report ---
Pharmacy Glycemic Short Note 2 - Date of Service August 08, 2023 - Glycemic Short BSG Results (Last 24 hours): 08/07/23 08/07/23 08/07/23 12:15 17:17 20:33 Glucose POC Glucose 248 H 185 H 196 H 08/08/23 08/08/23 08/08/23 05:46 08:19 08:20 Glucose 65 L POC Glucose 69 L* 76 OUTPATIENT ANTIDIABETIC REGIMEN: * glipizide 10mg BID * Januvia 100mg QAM * repaglinide 0.5mg BIDM HbA1c 6.2% 08/05/23 ASSESSMENT: 08/08/23: * Patient received total of 58 units of insulin yesterday, of which 25 units were basal * Fasting BSG slightly low this AM 65 mg/dL - on repeat check 76 mg/dL. Continues with prednisone 40 mg daily - plan to scale back on basal insulin for today ~30% since BSGs trending down this AM * Continue same CF/CR for now 08/06/23: * BSGs trended down nicely yesterday w/ elevated fasting BSG this morning * Received 53 units of insulin (20 units of basal and 33 units of prandial/correctional bolus) * Continues on methylprednisolone 40 mg IV q8h * Anticipating significant reduction in insulin needs once steroids tapered/discontinued * Remains on broad spectrum antibiotics * Minimal changes to glycemic regimen today 08/05/23: * Rao is a 88 YOM admitted with RSV/COPD exacerbation/CHF and a history of T2DM. Pharmacy has been consulted for glycemic management while inpatient. Rao is known to the glycemic service. * Hyperglycemic this AM, currently receiving cefepime/linezolid as well as IV methylprednisolone 40mg q8H * Basal insulin started at ~0.2 units/kg at lunchtime, will add basal scale at bedtime based on BSG allowing for up to ~0.4 units/kg with steroids. * Novolog initiated at parameters effective during previous admissions. PLAN FOR INPATIENT GLYCEMIC CONTROL: * Hold outpatient oral diabetes medications * Basal insulin * Lantus 8 units bid * Bolus insulin * NovoLog per scale ACHS or Q6hrs while NPO * Goal Range: Low 110 mg/dL - High 140 mg/dL * Correction Factor: 20 mg/dL/unit * Nutritional / Prandial insulin per carb ratio of 1 unit per 7 grams CHO consumed
[2023-08-08] MEDS: guaiFENesin 600 MG TABCR PO SCH (08:39)
[2023-08-08] MEDS: TAMSULOSIN HCL 0.4 MG CAP PO SCH (08:39)
[2023-08-08] MEDS: METOPROLOL SUCC 50MG EXT REL TAB PO SCH (08:39)
[2023-08-08] MEDS: ATORVASTATIN 40 MG TAB PO SCH (08:39)
[2023-08-08] MEDS: busPIRone 5 MG TAB PO SCH (08:39)
[2023-08-08] MEDS: predniSONE 20 MG TAB PO SCH (08:39)
[2023-08-08] MEDS: amLODIPine BESYLATE 5 MG TAB PO SCH (08:39)
[2023-08-08] MEDS: allopurinoL 100 MG TAB PO SCH (08:39)
[2023-08-08] MEDS: CLOPIDOGREL BISULFATE 75 MG TAB PO SCH (08:39)
[2023-08-08] MEDS: FLUTICASONE/VILANTEROL 200/25MCG 14 PUFFS/INHALER INH SCH (08:40)
[2023-08-08] MEDS: INSULIN ASPART PER UNIT CHARGE SC SCH ×2 (08:44→12:47)
[2023-08-08] MEDS: FLUTICASONE PROPIONATE NA SPR 16 GM BTL NAE SCH (08:45)
[2023-08-08] MEDS ORDERED: LANTUS PER UNIT CHARGE SC SCH (09:00)
[2023-08-08] MEDS: CEFEPIME 1,000 MG in SYRINGE 0 ML IV SCH (12:47)
[2023-08-08] MEDS: LINEZOLID 600 MG/300 ML BAG IV SCH (12:47)
--- NOTE | 2023-08-08 19:22 | Discharge Summary ---
Date of Service August 08, 2023 Admission HPI Per Admitting Provider The patient is an 88-year-old male with a past medical history including gout, CHF, pneumonia, urethral erosion, cutaneous vasculitis, recurrent UTI, A-fib, generalized weakness, carotid stenosis, hypertension, TIA, hyperlipidemia, diabetes mellitus type 2 and CAD. His most recent admission from 06/25- 06/27/2023 was for UTI. Next admission from 07/19-07/21/2023 was for pneumonia. He reports having been improved until about 1 week ago, when he started developing shortness of breath, worsening cough and dyspnea on exertion. Significant workup in the emergency department this evening included Bio[employer] test positive for RSV. Patient was also found to be newly neutropenic compared to most recent hospitalization, with WBC 2.34 and ANC 190. Creatinine was significant elevated at 2.62, compared to baseline of 1.73 From the ED the patient received the following: Solu-Medrol 105 5 mg IV, guaifenesin 6 mg p.o., DuoNeb treatment and furosemide 40 mg IV. Principal Diagnosis RSV, possible secondary pneumonia Discharge Exam in general he is awake and alert pleasant no distress. HEENT normocephalic atraumatic mucous membranes moist. Lungs are diminished throughout but clear without rales rhonchi or wheezes good effort no accessory muscle use no conversational dyspnea, he is on room air the whole time we are talking. Later nursing has him ambulate and he stays above 90% with ambulation as well. Neuro shows no focal deficits. Skin without rashes pallor or icterus. Discharge Data Allergies Allergy/AdvReac Type Severity Reaction Status Date / Time indomethacin AdvReac Intermediate LOWERED Verified 08/05/23 00:25 WHITE CELL COUNT meloxicam AdvReac Unknown CONTRINDICATED Verified 08/05/23 00:25 PER PT. metformin AdvReac Unknown pt unsure Verified 08/05/23 00:25 why Consultations 08/04/23 23:23 ED Decision to Admit Stat Ordered Studies 08/04/23 21:54 CT chest diagnostic wo con Stat Hospital Course (1) Acute respiratory failure with hypoxia: Appears to have been due to COPD exacerbation from RSV. Due to neutropenia, pneumonia treatment was started. He has improved nicely, and appears safe/stable for home. Given that he did not have a discrete infiltrate on his chest CT and pseudomonal coverage at home would raise his risk (given that it would have to be with a sarah quinolone) we will send home finishing out antibiotic coverage with cefdinir instead of the cefepime he has been on, and doxycycline and lieu of Zyvox. Steroid taper home Breo, add Spiriva albuterol as needed (2) Neutropenia: Neutropenia may be from current infection could also be from medications as azithromycin which he was prescribed at his last discharge does have neutropenia as a side effect. Upon further questioning by prior hospitalisthe gives a history that about 30 years ago he had low blood counts that his doctors gave him antibiotics for months by his report. After prolonged investigation including what he describes as a bone marrow biopsy they came to the conclusion that his bone marrow suppression was because of a medication which was stopped and then subsequently his bone marrow rebounded. The patient however cannot recall the name of that medication and even reliably with recall the name of the physician that treated him in an outside town. After speaking with hematology oncology a peripheral smear has been ordered and then subsequent to that we will give him 3 doses of Neupogen to augment his neutropenic response to fight infection have seen some response also with anemia,normal B12 folate tsh normal in May as well as am cortisol --> neutropenia was the reason for the antibiotic coverage above. His neutropenia is resolved, he does appear stable for home. Finish out a course of antibiotics as above noted. Follow-up with his PCP/CBC next week, but also I asked for him to be referred to hematology. (3) CKD (chronic kidney disease), stage III: SAULO superimposed on CKD-3 Creatinine has been up since about [place], see discharge instructionsprobably dehydration plus diuretics plus infectious illnessesencourage p.o. intake, basic metabolic panel next week. He is comfortable following up with the uncertainty of this as an outpatient rather than remaining in the hospital. (4) Afib: Atrial fibrillation/CAD/hypertension- Home on home meds (5) Diabetes mellitus, type 2: holding glipizide and Januvia. Outpatient follow-up (6) Urethral erosion: BPH/urethral erosion- Continue tamsulosin 0.8 mg every morning, follow-up with urology as an outpatient Plan see discharge instructions as well Total Time Total Time Spent Total Time Spent (In Minutes): greater than 30 Discharge Plan Discharge Items Patient Disposition: Home - Home Health Services Reason For Visit: RSV PNEUMONIA, NEUTROPENIA, COPD EX Discharge Diagnosis: RSV, COPD exacerbation Activity: Resume your previous activity Non-emergency contact: Primary Care Provider Call non-emergency contact if: you have any medication questions and your symptoms worsen Follow-up/Referrals: Alen Vigil D.O. [Primary Care Provider] - (PLEASE CALL YOUR PRIMARY CARE PROVIDER TO SCHEDULE A HOSPITAL DISCHARGE FOLLOW-UP APPOINTMENT WITHIN 7-10 DAYS) Diet: Regular and Carb Consistent or DM2 Addtl Attending Provider Instructions: RSV bronchitis, possible pneumonia -the main issue making you sick overall was the RSV infection/bronchitis, and subsequent flareup of COPD that this caused -the main thing that contributed to getting your breathing better was the steroids - we'll finish out a course with a taper of prednisone starting tomorrow - 30mg for 2 days, then 20mg for 2 days, then 10mg for 2 days. if you feel any worsening as you get to the 10mg dosing (or the day or two after the taper is finished) sometimes we have to treat for a little longer - so call your PCP. -while we didn't see a discrete pneumonia on your chest CT, there was definitely enough concern for a secondary bacterial overgrowth that we have you on a course of antibiotics - we'll want to finish this out with 3 more days with pill antibiotics - we'll have you on doxycycline and cefdinir to approximate the antibiotic coverage we've had you on here - next dose of doxycycline is tonight, cefdinir tomorrow. the doxycycline is twice a day, the cefdinir once a day. both are usually really well tolerated; i would recommend taking the doxycycline with food and be upright for about a half hour after you've taken it (it's very rare for this to happen, but it's one of those pills that if it gets stuck on the way down it can cause a painful ulcer) -like we discussed, it will probably take a good month for you to totally feel better from this -continue your regular Breo inhaler every day; in addition to that we've added another maintenance inhaler (spiriva) that often helps a good deal over time - it's another once a day every day inhaler. (and much like the Breo - where there are several different inhalers that have the same overall classes of medications, the same holds true for the spiriva - it's the most likely to be covered, but if you get to the pharmacy and it's needlessly expensive, have them call us since there are several other inhalers in the same class that can really do just as good) -as we discussed, expect to need to be a little more liberal with your albuterol rescue inhaler for the next 1-2 weeks - you can use it as often as every four hours as needed for a tight cough, mucous you can't get up, wheezing low white count -most likely this is just a bone marrow side effect from the RSV infection - it's found to happen reasonably often in a pediatric population, and while it is a little bit of extrapolation, it would be most logical that your counts got low due to bone marrow suppression from the RSV -that said, we'll definitely want to make sure things stay normal with your white count and that things stay stable with your hemoglobin - when you get follow up labwork next week for your kidney function (see below) we'll also want you to get follow up blood counts checked (CBC); to be safe, we've also set the referral process in motion for you to see hematology; however, if your counts normalize and your family doc does not see the need to follow through with the hematology appointment, then it can be cancelled elevated creatinine -your kidney numbers are about a point higher than you normally run; this happens fairly commonly with an acute illness (and actually in your situation appears to be what has been going on since about ) -we'll ask your family doc to follow this - with the expectation that things should slowly trend back to normal (especially with a few medication changes and adequate hydration - see below) - and if for whatever reason they don't, then your family doctor will guide you on further management from there (labwork - BMP - early next week) -stay well hydrated: keep track of what you drink, and try to shoot for a goal of 60 ounces of fluid a day. this might seem like a lot - but if you spread it out through the day it's really in the range of what your body will require under most circumstances to stay adequately hydrated while your creatinine is in the range it currently is, we'll need to make the following (likely temporary) medication changes (note - in the med list it will say to stop them --> that is because changing their status to "hold" requires a date at which to resume, and obviously that isn't known until we see the improvement in your kidney function): Fluid/blood pressure: -lasix (furosemide): we'll want you to not take this at all. it appears that the time you needed the lasix last month was very situational. it's quite possible that you won't need it at all in the future. we'll want you to follow for symptoms consistent with fluid overload (weight gain/new shortness of breath that's especially worse when you lay down/new swelling) - and if you develop any of those then definitely get checked out right away, but it's not very likely that those symptoms will occur -losartan: while ARB-type blood pressure medicines are usually very helpful in protecting our kidneys, there are times - especially when we're sick/dehydrated/etc where the way they impact kidney blood flow can be a bit counterproductive. for now we'll have you keep the losartan on the shelf until your numbers get back to your baseline, or until your PCP sees that things look good to restart it otherwise Sugar: -both glipizide and sitagliptin (januvia) are fairly heavily cleared by our kidneys - so for now we'll have you hold off on taking both of them (to protect you against low sugar events); at your current level of creatinine, you could take 25mg of januvia (you're presently on 100mg) - but as good as your sugars have been and as good as your A1c has been, it's easier for you if we just have you hold off on it entirely. eating low in simple/starchy/sugary carbs will likely be more than enough to keep your sugars in line to do: -labs (CBC, BMP) early next week -follow up with your PCP mid next week -take antibiotics (doxycycline starting tonight, cefdinir tomorrow) -take prednisone taper (starting tomorrow) -don't take furosemide, losartan, glipizide, sitagliptin until your family doc gives you "the green light" to resume Pending Studies at Discharge: No Stand-Alone Forms: [employer], Smoking Cessation Medications and DC Order Prescriptions: New tiotropium bromide [Spiriva with HandiHaler] 18 mcg capsule, w/inhalation device 1 cap inhalation DAILY Qty: 30 0RF Rx Instructions: puncture 1 cap using device; one dose = 2 inhalations doxycycline hyclate 100 mg capsule 100 mg PO BID 3 Days Qty: 6 0RF cefdinir 300 mg capsule 300 mg PO DAILY Qty: 3 0RF prednisone 10 mg tablet 10 mg PO DIRECTED Qty: 12 0RF Rx Instructions: 3 tabs (30mg) x 2 days, 2 tabs (20mg) x 2 days, 1 tab (10mg) x 2 days, then stop Continued metoprolol succinate 100 mg Tablet Extended Release 24 Hr 100 mg PO QAM tamsulosin 0.4 mg Capsule 0.8 mg PO QAM allopurinol 300 mg Tablet 300 mg PO QAM albuterol sulfate 90 mcg/actuation Hfa Aerosol Inhaler 2 puff INHALATION Q4H PRN (Reason: Wheezing) fluticasone furoate-vilanterol [Breo Ellipta] 200-25 mcg/dose blister with device 1 ea INHALATION DAILY atorvastatin 40 mg Tablet 40 mg PO QAM Qty: 30 1RF clopidogrel 75 mg Tablet 75 mg PO QAM Qty: 30 1RF repaglinide 0.5 mg tablet 0.5 mg PO BID Qty: 60 0RF Rx Instructions: Administer within 30 minutes of a meal or snack Eliquis 2.5 mg tablet 2.5 mg PO BID buspirone 5 mg tablet 2.5 mg PO BID famotidine 40 mg tablet 40 mg PO DAILYBB amlodipine 5 mg Tablet 5 mg PO DAILY lorazepam 1 mg Tablet 1 mg PO Q6H PRN (Reason: Anxiety) colchicine 0.6 mg tablet 0.6 mg PO BID PRN (Reason: GOUT FLARES) Rx Instructions: TAKE UNTIL PAIN RELIEVED OR DIARRHEA/NAUSEA. fluticasone propionate 50 mcg/actuation [place],Suspension 2 spray INTRANASAL DAILY Rx Instructions: administer into each nostril Discontinued glipizide 10 mg Tablet 10 mg PO BID Januvia 100 mg Tablet 100 mg PO QAM losartan 50 mg tablet 50 mg PO DAILY furosemide [Lasix] 40 mg tablet 40 mg PO DAILY Qty: 30 0RF Discharge Orders: Discharge Order (Routine); Ordered 08/08/23 Ordered By: James Mantilla Admission Data Admit Date/Time: 08/05/23 00:48 Attending Provider: James Mantilla Admit Provider: Campbell Tamayo Primary Care Provider: Alen Vigil Other Providers: Campbell Tamayo Other Interventions: Discharge Summary Assessment (RN) Last Done: 08/08/23 14:57 Coding Level of Care Code 42883 INP/OBS DISCH >30 MIN Diagnoses Acute respiratory failure with hypoxia J96.01 Neutropenia D70.9 Neutropenia type: unspecified CKD (chronic kidney disease), stage III N18.30 Afib I48.91 Diabetes mellitus, type 2 E11.9 Urethral erosion N36.8
== END 2023-08-08 16:44 | disposition home health service (06) | DRG 193 ==
LOC: ED 18:03 → SUATTDRO 08-05 00:48 → EDINP 08-05 00:48 → 2W 08-05 01:09